=== PATIENT | female | born 1950 | race Caucasian/White ===

== ENCOUNTER 2025-08-28 08:46 | Outpatient (REF) | payer MEDICARE, OTHER, SELFPAY ==
--- OUTSIDE RECORDS SUMMARY | 2016-03-22 23:00 | XMS_ITS | Encounter Summary ---
Author Organization [facility] Address [address] [place] [address] Phone Care Team Providers Care Bender Helper Name Role Phone Quinn Mercado MD Primary Care Provider Reason for Visit * MRI/CAT Scan - Closed Specialty Diagnoses / Procedures Referred By Contac t Referred To Contact Procedures MRI Lower Extremity Outside (No Interpretation) Natan Rubio MD [address] [place] [address] Phone: tel: fax: mailto:[email or web address] Referral ID Status Reason Start Date Expiration Date Visits Re quested Visits Authorized [id number] Closed 04/04/2017 04/04/2018 1 1 Encounter Details Date Type Department Care Team (Late st Contact Info) Description 03/23/2016 Hospital Encounter [facility] [address] [place] [address] Natan Rubio MD [address] [place] [address] [email or web address] Social History Tobacco Use Types Packs/Day Years [...] st Contact Info) Description 08/22/2025 Procedure Pass [address] [address] 10/01/2025 11:45 AM EST Office Visit [facility] General Surgical Care [address] [place] [address] Mattie Mesa MD [address] [facility], [address]nd [place] [address] [email or web address] 05/09/2026 11:45 AM EDT Appointment [address] [address] Quinn Mercado MD [address] [place] [address] documented as of this encounter Procedures Procedure Name Priority Date/Time Associated Diagnosis Comments MRI LOWER EXTREMITY OUTSIDE (NO INTERPRETATION) Routine 03/23/2016 12:00 AM EDT documented in this encounter Results * MRI Lower Extremity Outside (No Interpretation) (03/23/2016 12:00 AM EDT) Narrative [facility] - 04/04/2017 11:57 AM EDT This study is for PACS storage only and not for interpretation. us Natan Rubio MD IMG OUTSIDE IMAGING W/OUT INTERPRETATION Final Result [facility] documented in this encounter Visit Diagnoses Not on filedocumented in this encounter Care Teams Bender Helper Relationship Specialty Start Date End Date Quinn Mercado MD [address] [place] [address] PCP - General 04/16/14 documented as of this encounter Additional Source Comments The information contained in this document represents components of the legal health record. It is not the complete legal health record.[facility]
--- OUTSIDE RECORDS SUMMARY | 2016-03-22 23:15 | XMS_ITS | Encounter Summary ---
Author Organization [facility] Address [address] [place] [address] Phone Care Team Providers Care Security Investigator Name Role Phone Quinn Mercado MD Primary Care Provider Reason for Visit * MRI/CAT Scan - Closed Specialty Diagnoses / Procedures Referred By Contac t Referred To Contact Procedures MRI Lower Extremity Outside (No Interpretation) Natan Rubio MD [address] [place], [place] [address] [place] [address] Phone: tel: fax: mailto:[email or web address] Referral ID Status Reason Start Date Expiration Date Visits Re quested Visits Authorized [id number] Closed 04/04/2017 04/04/2018 1 1 Encounter Details Date Type Department Care Team (Late st Contact Info) Description 03/23/2016 12:15 AM EDT Hospital Encounter [facility] [address] [place] [address] Natan Rubio MD [address] [place] [address] [email or web address] Social History Tobacco Use Types Packs/Day [...] st Contact Info) Description 08/22/2025 Procedure Pass [address] [address] 10/01/2025 11:45 AM EST Office Visit [facility] General Surgical Care [address] [place] [address] Mattie Mesa MD [address] [place] [address] 05/09/2026 11:45 AM EDT Appointment [address] [address] Quinn Mercado MD [address] [place] [address] documented as of this encounter Procedures Procedure [...] IMG OUTSIDE IMAGING W/OUT INTERPRETATION Final Result [facility] INTER[facility]AC[facility] documented in this encounter Visit Diagnoses Not on filedocumented in this encounter Care Teams Security Investigator Relationship Specialty Start Date End Date Quinn Mercado MD [address] [place] [address] PCP - General 04/16/14 documented as of this encounter Additional Source Comments The information contained in this document represents components of the legal health record. It is not the complete legal health record.[facility]
--- NOTE | 2025-08-28 08:49 | EMG_ITS ---
Chief complaint: Last June, patient had a fall in her kitchen that hitting her chin and elbows on the countertop. Later started having severe pain from left shoulder, under arm to elbow. 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 She denies anymore pain. She denies any numbness or tingling. History of thyroid cancer, status post surgery and radioactive iodine, 2008. History of left breast cancer, status post surgery and radiation 2011-. Exam shows weakness with left finger abduction/adduction and flexion. There is slight atrophy on left FDI. Reason for referral: Evaluate for brachial plexopathy versus ulnar neuropathy Referred by: Hugh MORSE Procedure done: Left upper extremity NCS/EMG Precautions and/or limitations: None The limb temperature was monitored continuously and remained between 32-36 degrees C during the performance of the NCS. Ulnar motor NCS was performed with moderate elbow flexion between 70-90 degrees, with across-elbow distance of 10 cm. Nerve Conduction Studies Anti Sensory Summary Table ?Stim Site NR Onset (ms) Norm Onset (ms) Peak (ms) Norm Peak (ms) O-P Amp (?V) Norm O-P Amp Site1 Site2 Delta-0 (ms) Dist (cm) Itz (m/s) Norm Itz (m/s) Left Lat Ante Brach Cutan Anti Sensory (Lat Forearm) Lat Biceps ? 1.0 1.4 1.7 Lat Biceps Lat Forearm 1.0 0.0 Left Med Ante Brach Cutan Anti Sensory (Med Forearm) Elbow ? 1.0 1.3 3.8 Elbow Med Forearm 1.0 0.0 Left Median Anti Sensory (2nd Digit) Wrist ? 2.5 3.1 <3.6 14.7 >10 Wrist 2nd Digit 2.5 14.0 56 Left Radial Anti Sensory (Thumb) Forearm ? 1.7 2.3 <3.1 9.3 Forearm Thumb 1.7 0.0 Left Ulnar Anti Sensory (5th Digit) Wrist ? 2.0 2.7 <3.7 11.9 >15.0 Wrist 5th Digit 2.0 14.0 70 Motor Summary Table ?Stim Site NR Onset (ms) Norm Onset (ms) O-P Amp (mV) Norm O-P Amp iAmp (mV) Amp (1st) (%) Site1 Site2 Delta-0 (ms) Dist (cm) Itz (m/s) Norm Itz (m/s) Left Median Motor (Abd Poll Brev) Wrist ? 3.7 <3.9 0.5 >4.5 0.5 100.0 Elbow Wrist 3.9 15.0 38 >45 Elbow ? 7.6 0.2 0.3 40.0 Left Ulnar Motor (Abd Dig Minimi) Wrist ? 5.5 <3.0 0.3 >5 0.2 100.0 B Elbow Wrist 3.3 16.0 48 >45 B Elbow ? 8.8 0.3 0.3 100.0 A Elbow B Elbow 1.3 10.0 77 >45 A Elbow ? 10.1 0.3 0.3 100.0 EMG ?Side Muscle Nerve Root Ins Act Fibs Psw Amp Dur Poly Recrt Int Pat Comment Left 1stDorInt Ulnar C8-T1 Incr 1+ 1+ Nml Nml 0 Nml Complete Left FlexCarpiUln Ulnar C8,T1 Incr 1+ 1+ Nml Nml 0 Nml Complete Left Biceps Musculocut C5-6 Nml Nml Nml Nml Nml 0 Nml Complete Left Triceps Radial C6-7-8 Nml Nml Nml Nml Nml 0 Nml Complete Left Deltoid Axillary C5-6 Nml Nml Nml Nml Nml 0 Nml Complete Left ExtIndicis Radial (Post Int) C7-8 Nml Nml Nml Nml Nml 0 Reduced Complete Paraspinal EMG ?Side Muscle Nerve Root Ins Act Fibs Psw Comment Left Cervical Upper Rami Nml Nml Nml Left Cervical Mid Rami Nml Nml Nml Left Cervical Lower Rami Nml Nml Nml Right Cervical Upper Rami Nml Nml Nml Right Cervical Mid Rami Nml Nml Nml Right Cervical Lower Rami Nml Nml Nml FINDINGS: Left median motor nerve showed very small, almost absent responses. Left ulnar motor nerve showed very small, almost absent responses. Left ulnar sensory nerve showed normal peak latencies but small amplitude. Left median sensory nerve showed normal peak latencies and normal amplitude. Left radial sensory nerve showed normal peak latencies but slightly smaller amplitude. Both MAC and LAC were present but with smaller amplitudes. Concentric needle EMG was performed in selected muscles of the left upper extremity and cervical paraspinals. Study revealed signs of electric abnormalities as shown in the table above. Left FCU showed increased insertional activity, PSWs and fibrillations. Left FDI showed increased insertional activity, PSWs and fibrillations. Left extensor indices showed reduced recruitment. No denervation seen on cervical paraspinals. IMPRESSION: 1. This is an abnormal study. 2. 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 3. There is no electrodiagnostic evidence for median neuropathy, ulnar neuropathy, or cervical radiculopathy. CLINICAL COMMENT: Clinically, patient presenting similar to [place] syndrome or brachial plexitis, where in she had severe acute onset of pain which has subsided, followed by weakness. Thank you for your kind referral. Tara Esposito MD, COREY Board Certified, [place] Board [employer] Medicine and Rehabilitation (ABPMR) Board Certified, [place] Board of Electrodiagnostic Medicine (ABEM) CODIN 23284 x 1 extremity MTDD
--- OUTSIDE RECORDS SUMMARY | 2025-08-28 09:12 | XMS_ITS | Encounter Summary ---
Author Organization [facility] Address [address] [place] [address] Phone Care Team Providers Care Tools Administrator Name Role Phone Quinn Mercado MD Primary Care Provider Dimas Chester MD Unavailable Unavailable Alphonse Craig MD Unavailable [phone] Nereyda Figueredo PA-C Unavailable [email or web address] Encounter Details Date Type Department Care Team (Latest Contact Info) Description 01/01/2022 Transcribe Orders Virtual Department [address] [place] [address] Crystal Solomon MD [address] [place] [address] Breast screening (Primary Dx) Social History Tobacco Use Types Packs/Day Years Used Date Smoking Tobacco: Never Smokeless Tobacco: Never Comments No Sex and Gender Information Value Date Recorded Sex Assigned at Female 04/06/2021 2:21 PM EDT Legal Sex Female 5:31 PM EST Gender Identity Female 04/06/2021 2:21 PM EDT Sexual Orientation Not on file documented as of this encounter Plan of Treatment Upcoming Encounters Date Type Department Care Team (Late st Contact Info) Description 08/22/2025 Procedure Pass [address] [address] 10/01/2025 11:45 AM EST Office Visit [facility] General Surgical Care [address] [place] [address] Mattie Mesa MD [address] [facility], 2nd [place] [address] [email or web address] 05/09/2026 11:45 AM EDT Appointment [address] [address] Quinn Mercado MD [address] [place] [address] documented as of this encounter Results * BI MAMMOGRAM SCREENING WITH TOMOSYNTHESIS WITH CAD (BILATERAL) (03/25/2022 12:45 PM EDT) Anatomical Region Laterality Modality Breast Left, Breast Right, Breast Bilateral Bila teral Mammography 03/25/2022 8:10 PM EDT Impressions 03/25/2022 8:16 PM EDT BILATERAL BREASTS: Benign, no evidence of malignancy. Normal interval follow-up is recommended in 12 months. Bi-RADS: BI-RADS CATEGORY: 2 - Benign finding. DENSITY: There are scattered fibroglandular densities. Narrative 03/25/2022 8:16 PM EDT STUDY: Bilateral screening mammography with tomosynthesis and CAD Left breast lumpectomy for malignancy in April 2016. TECHNIQUE: Bilateral full-field digital screening mammography is obtained and read in conjunction with computer-aided detection. Tomosynthesis as well as 2-D C view imaging were obtained. COMPARISON: Comparison made to multiple prior, most recent March 23, 2021, and most remote April 11, 2017. BREAST COMPOSITION: There are scattered areas of fibroglandular density RIGHT BREAST: Tissue marker from previous needle core biopsy. No significant masses, suspicious calcifications or other abnormalities are seen. LEFT BREAST: Posttreatment changes. No significant masses, suspicious calcifications or other abnormalities are seen. Procedure Note Paddy Mercado MD - 03/25/2022 STUDY: Bilateral screening mammography with tomosynthesis and CAD Left breast lumpectomy for malignancy in April 2016. TECHNIQUE: Bilateral full-field digital screening mammography is obtainedand read in conjunction with computer-aided detection. Tomosynthesis aswell as 2-D C view imaging were obtained. COMPARISON: Comparison made to multiple prior, most recent March 23, 2021,and most remote April 11, 2017. BREAST COMPOSITION: There are scattered areas of fibroglandulardensity RIGHT BREAST: Tissue marker from previous needle core biopsy. Nosignificant masses, suspicious calcifications or other abnormalities areseen. LEFT BREAST: Posttreatment changes. No significant masses, suspiciouscalcifications or other abnormalities are seen. IMPRESSION: BILATERAL BREASTS: Benign, no evidence of malignancy. Normal intervalfollow-up is recommended in 12 months. Bi-RADS: BI-RADS CATEGORY: 2 - Benign finding. DENSITY: There are scattered fibroglandular densities. us Crystal Solomon MD IMG MG EXAMS Final R esult documented in this encounter Visit Diagnoses Diagnosis Breast screening- Primary Breast screening, unspecified Breast screening Breast screening, unspecified documented in this encounter Care Teams Tools Administrator Relationship Specialty Start Date End Date Quinn Mercado MD [address] [place] [address] PCP - General 04/16/14 Dimas Chester MD Consulting Provider Allergy and Immunology 11/10/20 Alphonse Craig MD [address] [place] [address] [phone] [email or web address] Primary Oncologist Medical Oncology 03/26/21 Nereyda Figueredo PA-C [address] [place] [address] [email or web address] Physician Insulation Cutter Medical Oncology 03/17/23 04/01/25 documented as of this encounter Additional Source Comments The information contained in this document represents components of the legal health record. It is not the complete legal health record.[facility]
--- OUTSIDE RECORDS SUMMARY | 2025-08-28 09:13 | XMS_ITS | Encounter Summary ---
Author Organization [facility] Address [address] [place] [address] Phone Care Team Providers Care Choke Reamer Name Role Phone Quinn Mercado MD Primary Care Provider Dimas Chester MD Unavailable Unavailable Alphonse Craig MD Unavailable [phone] Encounter Details Date Type Department Care Team (Late st Contact Info) Description 04/02/2025 Procedure Pass [facility], Ct Scan - [address] [address] Social History Tobacco Use Types Packs/Day Years [...] st Contact Info) Description 08/22/2025 Procedure Pass [address] [address] 10/01/2025 11:45 AM EST Office Visit [facility] General Surgical Care [address] [place] [address] Mattie Mesa MD [address] [facility], 2nd [place] [address] 05/09/2026 11:45 AM EDT Appointment [address] [address] Quinn Mercado MD [address] [place] [address] documented as of this encounter Visit Diagnoses Not on filedocumented in this encounter Care Teams Choke Reamer Relationship Specialty Start Date End Date Quinn Mercado MD [address] [place] [address] PCP - General 04/16/14 Dimas Chester MD Consulting Provider Allergy and Immunology 11/10/20 Alphonse Craig MD [address] [place] [address] Primary Oncologist Medical Oncology 03/26/21 documented as of this encounter Additional Source Comments The information contained in this document represents components of the legal health record. It is not the complete legal health record.[facility]
--- OUTSIDE RECORDS SUMMARY | 2025-08-28 09:13 | XMS_ITS | Encounter Summary ---
Author Organization [facility] Address [address] [place] [phone] Phone Care Team Providers Care Director Of Community Life Name Role Phone Quinn Mercado MD Primary Care Provider Dimas Chester MD Unavailable Unavailable Alphonse Craig MD Unavailable [phone] Nereyda Figueredo PA-C Unavailable [email or web address] Encounter Details Date Type Department Care Team (Late st Contact Info) Description 02/12/2021 Ancillary Orders [facility] at [address] [address] Alphonse Craig MD [address] [place] [phone] [email or web address] Breast screening Social History Tobacco Use Types Packs/Day Years [...] st Contact Info) Description 08/22/2025 Procedure Pass [address] [address] 10/01/2025 11:45 AM EST Office Visit [facility] [address] [place] [address] Mattie Mesa MD [address] [facility], 2nd [place] [address] 05/09/2026 11:45 AM EDT Appointment [address] [address] Quinn Mercado MD [address] [place] [phone] documented as of this encounter Results * BI MAMMOGRAM SCREENING WITH TOMOSYNTHESIS WITH CAD (BILATERAL) (03/23/2021 11:48 AM EDT) Anatomical Region Laterality Modality Breast Left, Breast Right, Breast Bilateral Bila teral Mammography 03/23/2021 6:43 PM EDT Impressions 03/23/2021 6:52 PM EDT BILATERAL BREASTS: Benign, no evidence of malignancy. Normal interval follow-up is recommended in 12 months. Bi-RADS: BI-RADS CATEGORY: 2 - Benign finding. DENSITY: There are scattered fibroglandular densities. Narrative 03/23/2021 6:52 PM EDT STUDY: Bilateral screening mammography with tomosynthesis and CAD History: Personal history of left breast cancer, status post lumpectomy in April 2016. TECHNIQUE: Bilateral full-field digital screening mammography is obtained and read in conjunction with computer-aided detection. Tomosynthesis as well as 2-D C view imaging were obtained. COMPARISON: Comparison made to multiple prior, most recent April 02, 2020, and most remote December 28, 2010. BREAST COMPOSITION: There are scattered areas of fibroglandular density RIGHT BREAST: Tissue marker from previous needle core biopsy. No significant masses, suspicious calcifications or other abnormalities are seen. LEFT BREAST: Postsurgical changes. No significant masses, suspicious calcifications or other abnormalities are seen. Procedure Note Paddy Mercado MD - 03/23/2021 STUDY: Bilateral screening mammography with tomosynthesis and CAD History: Personal history of left breast cancer, status post lumpectomy inJuly 2016. TECHNIQUE: Bilateral full-field digital screening mammography is obtainedand read in conjunction with computer-aided detection. Tomosynthesis aswell as 2-D C view imaging were obtained. COMPARISON: Comparison made to multiple prior, most recent April 02, 2020,and most remote December 28, 2010. BREAST COMPOSITION: There are scattered areas of fibroglandulardensity RIGHT BREAST: Tissue marker from previous needle core biopsy. Nosignificant masses, suspicious calcifications or other abnormalities areseen. LEFT BREAST: Postsurgical changes. No significant masses, suspiciouscalcifications or other abnormalities are seen. IMPRESSION: BILATERAL BREASTS: Benign, no evidence of malignancy. Normal intervalfollow-up is recommended in 12 months. Bi-RADS: BI-RADS CATEGORY: 2 - Benign finding. DENSITY: There are scattered fibroglandular densities. us Alphonse Craig MD IMG MG EXAMS Final Result documented in this encounter Visit Diagnoses Diagnosis Breast screening Breast screening, unspecified Breast screening Breast screening, unspecified documented in this encounter Care Teams Director Of Community Life Relationship Specialty Start Date End Date Quinn Mercado MD [address] [place] [id number] PCP - General 04/16/14 Dimas Chester MD Consulting Provider Allergy and Immunology 11/10/20 Alphonse Craig MD [address] [place] [phone] Primary Oncologist Medical Oncology 03/26/21 Nereyda Figueredo PA-C [address] [place] [phone] [email or web address] Physician Credit Coordinator Medical Oncology 03/17/23 04/01/25 documented as of this encounter Additional Source Comments The information contained in this document represents components of the legal health record. It is not the complete legal health record.[facility]
--- OUTSIDE RECORDS SUMMARY | 2025-08-28 09:13 | XMS_ITS | Data Portability ---
Author Organization [facility], Main Office Address [address] [place] [address] Care Team Providers Care Honey Grader And Blender Name Role Phone QUINN MERCADO Primary Care Provider [phone] TOM NORRIS Automotive Sales Manager SLEEP MEDICINE SERVICES Sleep Medicine [phone] BRISEIDA PIERRE Breast Surgeon [phone] JOHN STOVALL Dehydration Unit Operator LEANNE ELIZABETH [employer] Paralegal CAMERON ROBINS Chief Of Service SARINA PICKENS Hose Handler [phone] NICOLE CURRIE Hematology/Oncology [phone] SAMARIA FISH Phys. Med. & Rehab [phone] SARAH MARTINEZ Neuropsychologist [phone] JULIA HARO Ship Fastener TURIN ORTHOPEDIC SURGEON Orthopedic Surgeo n [facility] Take Away Attendant [phone] CHRIS APPIAH Buyer Assessment Encounter Date Assessment Date Assessment LastModified by Organization Details LastModified Time 11/28/2024 11/28/2024 The patient reports a prior sleep evaluation, with an equivocal sleep study for obstructive sleep apnea (REY). However, upon reviewing her last sleep medicine note from 2022, it suggested a diagnosis of REY. I encouraged her to follow up with sleep medicine, as untreated REY can be a potential cause of her fatigue. Other possible causes of fatigue, such as cardiac or pulmonary conditions, should also be considered. Due to time limitations today, I did not obtain an EKG, but she follows regularly with a gas usage meter clerk and has undergone multiple cardiac evaluations in the past. She also has a history of coronary artery disease and is being managed for hypertension, which was elevated today but asymptomatic. She has a follow-up scheduled with her primary care provider (PCP), and I advised her to discuss blood pressure management at that visit. On exam, she does not appear dyspneic, her lung sounds are clear, and she is saturating well on room air. Therefore, I will defer pulmonary function testing to her PCP for further evaluation if needed. For further workup, we will proceed with lab testing but omit serum and urine protein electrophoresis (SPEP/UPEP), as her tier lift operator is already following up on this. Her urine sample will be sent for further analysis to confirm the absence of infection. Given her history of chronic constipation, which can contribute to urinary symptoms, I will obtain an abdominal X-ray to assess for significant stool burden and recommend follow-up with her shed workers supervisor . Other potential causes of her symptoms include atrophic vaginitis, though this would not explain her fatigue. A mental health assessment was conducted using the RODRICK/PHQ screening tools, which indicated mild anxiety. Given these results, I reassured the patient and advised continued monitoring. If symptoms worsen or persist, further evaluation and management may be necessary. [email or web address] Not available 11/28/2024 17:53:26 Plan of Treatment Reminders Order Date Submit Date Provider Last Modified By Organization Details Last Modified Time Details Appointments [email or web address] 2025 01:00P M Quinn Mercado MD Not available Not available Not available Lab LDL, direct , serum 2024 025 SIMEON [facility] (Centralized Electronic Ordering - All Locations), Patient Can Go To The Location Of Their Choice, [id number] 04/29/2025 11:58:31 HbA1c (hemog lobin A1c), blood 2024 025 SIMEON [facility] (Centralized Electronic Ordering - All Locations), Patient Can Go To The Location Of Their Choice, [id number] 04/29/2025 11:58:32 CMP, serum or plasma 2024 025 SIMEON [facility] (Centralized Electronic Ordering - All Locations), Patient Can Go To The Location Of Their Choice, 04/29/2025 11:58:31 urinal ysis, dipsti ck 2024 laura In-Office Order, Internal Use Only DO Not Attach Compendium DO Not Attach Compendium, Do Not Delete/merge, [id number] 11/28/2024 17:14:04 urinal ysis comple te, reflex cultur e 2024 SIMEON [facility] (Centralized Electronic Ordering - All Locations), Patient Can Go To The Location Of Their Choice, 12/02/2024 10:05:20 vitami n D, 25-hyd aby, total, serum 2024 SIMEON [facility] (Centralized Electronic Ordering - All Locations), Patient Can Go To The Location Of Their Choice, 12/01/2024 12:05:39 mitoch ondria l M2 igg Ab, serum 2024 025 SIMEON [facility] (Centralized Electronic Ordering - All Locations), Patient Can Go To The Location Of Their Choice, 12/01/2024 12:05:39 gamma- glutam yl transf erase (ggt), serum 2024 025 SIMEON [facility] (Centralized Electronic Ordering - All Locations), Patient Can Go To The Location Of Their Choice, 12/01/2024 12:05:41 alkali ne phosph atase, serum or plasma 2024 025 SIMEON [facility] (Centralized Electronic Ordering - All Locations), Patient Can Go To The Location Of Their Choice, 11/28/2024 15:41:39 CBC w/ auto diff 2024 025 SIMEON [facility] ([facility]ized [facility] Ordering - All Locations), Patient Can Go To The Location Of Their Choice, 12/01/2024 12:05:35 CMP, serum or plasma 2024 025 SIMEON [facility] ([facility]ized [facility] Ordering - All Locations), Patient Can Go To The Location Of Their Choice, 12/01/2024 12:05:36 CK (creat ine kinase ), total, serum 2024 SIMEON [facility] (Centralized [facility] Ordering - All Locations), Patient Can Go To The Location Of Their Choice, 12/01/2024 12:05:38 phosph orus, serum or plasma 2024 SIMEON [facility] ([facility]ized [facility] Ordering - All Locations), Patient Can Go To The Location Of Their Choice, 12/01/2024 12:05:42 borrel ia burgdo rferi IgG + IgM + total panel, IA, serum 2024 SIMEON [facility] ([facility]ized Electronic Ordering - All Locations), Patient Can Go To The Location Of Their Choice, 12/01/2024 12:05:40 inflam mation panel, serum or plasma 2024 SIMEON [facility] ([facility]ized [facility] Ordering - All Locations), Patient Can Go To The Location Of Their Choice, 12/01/2024 12:05:38 TSH + free T4, serum 2024 S[facility]ON [facility] ([facility]ized [facility] Ordering - All Locations), Patient Can Go To The Location Of Their Choice, 12/01/2024 12:05:34 Mycoba cteriu m tuberc ulosis stimul ated gamma interf santino, qual, blood 2024 SIMEON [facility] (Centralized Electronic Ordering - All Locations), Patient Can Go To The Location Of Their Choice, 12/01/2024 12:05:37 Referral physic al medici ne and rehabi litati on referr al - Patien t 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 Limite d option s for pain manage ment given allerg ies and advers e reacti ons. Report s she has previo usly tolera nathalie joint inject ions in lumbar spine 2024 SIMEON Jean MD, [address], [place], [address], 08/05/2025 18:45:15 physic al therap ist referr al - Pain and weakne ss attrib uted to cervic al spine degene ration with radicu lopath y. MRI shows multi level modert ate to severe forami nal narrow ing 2024 025 [facility] [place], [address] [place], [address], 07/12/2025 14:49:07 orthop edic surgeo n referr al - Rule out fractu re. Patien t has recent fall with impact to head. Experi encing pain, weakne ss. Orderi ng MRI and Xray 2024 025 [email or web address] [facility], [address], [address], [place], [address], 08/15/2025 15:26:[address] referr al - for eval of pt with elevat ed rheuma toid factor , CK and sed rate 2024 025 [facility] Chris Appiah MD, [address] [place] [address], [address], 06/15/2025 08:38:12 Procedures None record ed. Surgeries None record ed. Imaging MRI, cervic al spine, w/o contra st - Trip t has recent fall (3 weeks ago) with impact to head. Now experi encing pain, upper extrem ity weakne ss, numbne ss. Rule out cord/n erve compre ssion. 2024 025 [email or web address] [facility], [address] [place] [address], [address], 07/10/2025 11:56:30 XR, cervic al spine, 2 or 3 view - Rule out fractu re. Patien t has recent fall with impact to head. Experi encing pain, weakne ss. 2024 025 [facility], [facility] [place], [address], 07/12/2025 11:14:37 XR, abdome n, comple te 2024 025 [facility], [address] [place], [address], 12/12/2024 10:08:41 XR, chest, 2 view 2024 025 [facility], [address], [place], [address], 12/12/2024 10:08:41 Medication Orders gabape ntin 100 mg capsul e 2024 025 [email or web address] [id number], [address] [place], [address], 07/05/2025 15:24:14 omepra zole 20 mg capsul e,ely yed releas e 2024 025 SIMEON [id number], [address] [place], [address], 04/29/2025 11:58:17 Patient TargetsNo targets recorded. Patient Instructions Encounter Date Encounter Id Patient Instructions Last Modified By Organization Details Last Modified Time 11/28/2024 [id number] high blood pressure: care instructions [email or web address] Not available 11/28/2024 15:41:20 learning about high blood pressure [email or web address] Not available 11/28/2024 15:41:20 04/29/2025 [id number] high cholesterol: care instructions [email or web address] Not available 04/29/2025 11:58:15 depression treatment: care instructions [email or web address] Not available 04/29/2025 11:58:15 high blood pressure: care instructions awychowski Not available 04/29/2025 11:58:15 learning about high blood pressure awychowski Not available 04/29/2025 11:58:15 07/05/2025 [id number] Chart reviewed, agree with above assessment and plan. [email or web address] Not available 07/08/2025 06:30:24 07/12/2025 [id number] healthy upper back: exercises [email or web address] Not available 07/12/2025 11:33:31 Chart reviewed, agree with above assessment and plan. [email or web address] Not available 07/12/2025 12:37:13 Reason for Referral Buyer Referral for Rheumatoid factor detected for eval of pt with elevated rheumatoid factor, CK and sed rate Referring Physician: Quinn Mercado [facility], Encounter Date: 12/14/2024 Orthopedic Surgeon Referral for Cervical radiculopathy Rule out fracture. Patient has recent fall with impact to head. Experiencing pain, weakness. Ordering MRI and Xray Referring Physician: Nelida Michele [facility], Encounter Date: 07/05/2025 Physical Medicine And Rehabi litation Referral for Cervical radiculopathy Patient has cervical spine degeneration with radiculopathy. Limited options for pain management given allergies and adverse reactions. Reports she has previously tolerated joint injections in lumbar spine Referring Physician: Nelida Michele [facility], Encounter Date: 07/12/2025 Physical Therapist Referral for Cervical radiculopathy Pain and weakness attributed to cervical spine degeneration with radiculopathy. MRI shows multi level modertate to severe foraminal narrowing Referring Physician: Nelida Michele [facility], Encounter Date: 07/12/2025 Results Created Date Observation Date Name Description Value Unit Range Abnormal Flag Note LastModifiedBy Organization Detail LastModifiedTime 11/28/1911/29/2024 TSH+F REE T4 TSH 1.380 uIU/m L 0.450- 4.500 normal Not Available [facility] ([facility]) [address] [place], [address], 12/01/2024 12:05:33 11/28/1911/29/2024 TSH+F REE T4 T4,free(dire ct) 1.35 NG/dL 0.82-1 .77 normal Not Available [facility] ([facility]) [address] [place], [address], 12/01/2024 12:05:33 11/28/1911/29/2024 CBC WITH DIFFE RENTI AL/PL ATELE T WBC 6.9 x10e3 /uL 3.4-10 .8 normal Not Available [facility] ([facility]) [address] [place], [address], 12/01/2024 12:05:35 11/28/19 25 11/29/2024 CBC WITH DIFFE RENTI AL/PL ATELE T RBC 4.49 x10e6 /uL 3.77-5 .28 normal Not Available [facility] ([facility]) [address] [place], [address], 12/01/2024 12:05:35 11/28/19 25 11/29/2024 CBC WITH DIFFE RENTI AL/PL ATELE T hemoglobin 13.3 g/dL 11.1-1 5.9 normal Not Available [facility] ([facility]) [address] [place], [address], 12/01/2024 12:05:35 11/28/19 25 11/29/2024 CBC WITH DIFFE RENTI AL/PL ATELE T hematocrit 41.0 % 34.0-4 6.6 normal Not Available [facility] ([facility]) [address] [place], [address], 12/01/2024 12:05:35 11/28/19 25 11/29/2024 CBC WITH DIFFE RENTI AL/PL ATELE T MCV 91 fL 79-97 normal Not Available [facility] ([facility]) [address] [place], [address], 12/01/2024 12:05:35 11/28/19 25 11/29/2024 CBC WITH DIFFE RENTI AL/PL ATELE T MCH 29.6 pg 26.6-3 3.0 normal Not Available [facility] ([facility]) [address] [place], [address], 12/01/2024 12:05:35 11/28/19 25 11/29/2024 CBC WITH DIFFE RENTI AL/PL ATELE T MCHC 32.4 g/dL 31.5-3 5.7 normal Not Available [facility] ([facility]) [address] [facility], [place], [address], 12/01/2024 12:05:35 11/28/19 25 11/29/2024 CBC WITH DIFFE RENTI AL/PL ATELE T RDW 13.8 % 11.7-1 5.4 Not Available [facility] ([facility]) [address] [facility], [place], [address], 12/01/2024 12:05:35 11/28/19 25 11/29/2024 CBC WITH DIFFE RENTI AL/PL ATELE T platelets 285 x10e3 /uL 150-45 0 normal Not Available [facility] ([facility]) [address] [facility], [place], [address], 12/01/2024 12:05:35 11/28/19 25 11/29/2024 CBC WITH DIFFE RENTI AL/PL ATELE T neutrophils 65 % not estab. normal Not Available [facility] ([facility]) [address] [facility], [place], [address], 12/01/2024 12:05:35 11/28/19 25 11/29/2024 CBC WITH DIFFE RENTI AL/PL ATELE T lymphs 26 % not estab. normal Not Available [facility] ([facility]) [address] [facility], [place], [address], 12/01/2024 12:05:35 11/28/19 25 11/29/2024 CBC WITH DIFFE RENTI AL/PL ATELE T monocytes 7 % not estab. normal Not Available [facility] ([facility]) [address] [facility], [place], [address], 12/01/2024 12:05:35 11/28/19 25 11/29/2024 CBC WITH DIFFE RENTI AL/PL ATELE T eos 1 % not estab. normal Not Available [facility] ([facility]) [address] [facility], [place], [address], 12/01/2024 12:05:35 11/28/19 25 11/29/2024 CBC WITH DIFFE RENTI AL/PL ATELE T basos 1 % not estab. normal Not Available [facility] ([facility]) [address] [facility], [place], [address], 12/01/2024 12:05:35 11/28/19 25 11/29/2024 CBC WITH DIFFE RENTI AL/PL ATELE T immature cells RESOURCE FORESTER Not Available [facility] ([facility]) [address] [place], [address], 12/01/2024 12:05:35 11/28/19 25 11/29/2024 CBC WITH DIFFE RENTI AL/PL ATELE T neutrophils (absolute) 4.4 x10e3 /uL 1.4-7. 0 normal Not Available [facility] ([facility]) [address] [place], [address], 12/01/2024 12:05:35 11/28/19 25 11/29/2024 CBC WITH DIFFE RENTI AL/PL ATELE T lymphs (absolute) 1.8 x10e3 /uL 0.7-3. 1 normal Not Available [facility] ([facility]) [address] [place], [address], 12/01/2024 12:05:35 11/28/19 25 11/29/2024 CBC WITH DIFFE RENTI AL/PL ATELE T monocytes(ab solute) 0.5 x10e3 /uL 0.1-0. 9 normal Not Available [facility] ([facility]) [address] [place], [address], 12/01/2024 12:05:35 11/28/19 25 11/29/2024 CBC WITH DIFFE RENTI AL/PL ATELE T eos (absolute) 0.1 x10e3 /uL 0.0-0. 4 normal Not Available [facility] ([facility]) [address] [place], [address], 12/01/2024 12:05:35 11/28/19 25 11/29/2024 CBC WITH DIFFE RENTI AL/PL ATELE T baso (absolute) 0.0 x10e3 /uL 0.0-0. 2 normal Not Available [facility] ([facility]) [address] [facility], [place], [address], 12/01/2024 12:05:35 11/28/19 25 11/29/2024 CBC WITH DIFFE RENTI AL/PL ATELE T immature granulocytes 0 % not estab. Not Available [facility] ([facility]) [address] [facility], [place], [address], 12/01/2024 12:05:35 11/28/19 25 11/29/2024 CBC WITH DIFFE RENTI AL/PL ATELE T immature grans (abs) 0.0 x10e3 /uL 0.0-0. 1 Not Available [facility] ([facility]) [address] [facility], [place], [address], 12/01/2024 12:05:35 11/28/19 25 11/29/2024 CBC WITH DIFFE RENTI AL/PL ATELE T NRBC RESOURCE FORESTER Not Available [facility] ([facility]) [address] [facility], [place], [address], 12/01/2024 12:05:35 11/28/19 25 11/29/2024 CBC WITH DIFFE RENTI AL/PL ATELE T hematology comments: RESOURCE FORESTER Not Available [facility] ([facility]) [address] [facility], [place], [address], 12/01/2024 12:05:35 11/28/19 25 11/29/2024 COMP. METAB OLIC PANEL (14) glucose 109 mg/dL 70-99 above high normal Not Available [facility] ([facility]) [address] [facility], [place], [address], 12/01/2024 12:05:36 11/28/19 25 11/29/2024 COMP. METAB OLIC PANEL (14) BUN 19 mg/dL 8-27 normal Not Available [facility] ([facility]) [address] [place], [address], 12/01/2024 12:05:36 11/28/19 25 11/29/2024 COMP. METAB OLIC PANEL (14) creatinine 0.76 mg/dL 0.57-1 .00 normal Not Available [facility] ([facility]) [address] [place], [address], 12/01/2024 12:05:36 11/28/19 25 11/29/2024 COMP. METAB OLIC PANEL (14) eGFR 82 mL/mi n/1.7 3 >59 normal Not Available [facility] ([facility]) [address] [place], [address], 12/01/2024 12:05:36 11/28/19 25 11/29/2024 COMP. METAB OLIC PANEL (14) BUN/creatini ne ratio 25 12-28 normal Not Available [facility] ([facility]) [address] [place], [address], 12/01/2024 12:05:36 11/28/19 25 11/29/2024 COMP. METAB OLIC PANEL (14) sodium 142 mmol/ L 134-14 4 normal Not Available [facility] ([facility]) [address] [place], [address], 12/01/2024 12:05:36 11/28/19 25 11/29/2024 COMP. METAB OLIC PANEL (14) potassium 3.9 mmol/ L 3.5-5. 2 normal Not Available [facility] ([facility]) [address] [place], [address], 12/01/2024 12:05:36 11/28/19 25 11/29/2024 COMP. METAB OLIC PANEL (14) chloride 103 mmol/ L 96-106 normal Not Available [facility] ([facility] [address] [place], [address], 12/01/2024 12:05:36 11/28/19 25 11/29/2024 COMP. METAB OLIC PANEL (14) carbon dioxide, total 23 mmol/ L 20-29 normal Not Available [facility] ([facility] [address] [place], [address], 12/01/2024 12:05:36 11/28/19 25 11/29/2024 COMP. METAB OLIC PANEL (14) calcium 9.9 mg/dL 8.7-10 .3 normal Not Available [facility] ([facility] [address] [place], [address], 12/01/2024 12:05:36 11/28/19 25 11/29/2024 COMP. METAB OLIC PANEL (14) protein, total 7.6 g/dL 6.0-8. 5 normal Not Available [facility] ([facility]) [address] [place], [address], 12/01/2024 12:05:36 11/28/19 25 11/29/2024 COMP. METAB OLIC PANEL (14) albumin 4.4 g/dL 3.8-4. 8 normal Not Available [facility] ([facility]) [address] [place], [address], 12/01/2024 12:05:36 11/28/19 25 11/29/2024 COMP. METAB OLIC PANEL (14) globulin, total 3.2 g/dL 1.5-4. 5 Not Available [facility] ([facility]) [address] [place], [address], 12/01/2024 12:05:36 11/28/19 25 11/29/2024 COMP. METAB OLIC PANEL (14) bilirubin, total 0.8 mg/dL 0.0-1. 2 normal Not Available [facility] ([facility]) [address] [place], [address], 12/01/2024 12:05:36 11/28/19 25 11/29/2024 COMP. METAB OLIC PANEL (14) alkaline phosphatase 142 IU/L 44-121 above high normal Not Available [facility] ([facility]) [address] [place], [address], 12/01/2024 12:05:36 11/28/19 25 11/29/2024 COMP. METAB OLIC PANEL (14) AST (SGOT) 26 IU/L 0-40 normal Not Available [facility] ([facility]) [address] [place], [address], 12/01/2024 12:05:36 11/28/19 25 11/29/2024 COMP. METAB OLIC PANEL (14) ALT (SGPT) 22 IU/L 0-32 normal Not Available [facility] ([facility]) [address] [place], [address], 12/01/2024 12:05:36 11/28/19 25 11/30/2024 QUANT IFERO N-TB GOLD PLUS quantiferon incubation INCUBA TION PERFOR MED. Not Available [facility] ([facility]) [address] [place], [address], 12/01/2024 12:05:37 11/28/19 25 11/30/2024 QUANT IFERO N-TB GOLD PLUS quantiferon criteria COMMEN T Quant iFERO N-TB Gold Plus is a quali tativ e indir ect test for M tuber culos is infec tion (incl uding disea se) and is inten ded for use in conju nctio n with risk asses sment , radio graph y, and other medic al and diagn ostic evalu ation s. The Quant iFERO N-TB Gold Plus resul t is deter mined by subtr actin g the Nil value from eithe r TB antig en (Ag) value . The Mitog en tube serve s as a contr ol for the test. Not Available [facility] ([facility]) [address] [place], [address], 12/01/2024 12:05:37 11/28/19 25 12/01/2024 QUANT IFERO N-TB GOLD PLUS quantiferon TB1 Ag value 0.05 IU/mL Not Available [facility]) [address] [place], [address], 12/01/2024 12:05:37 11/28/19 25 12/01/2024 QUANT IFERO N-TB GOLD PLUS quantiferon TB2 Ag value 0.05 IU/mL Not Available [facility] ([facility]) [address] [place], [address], 12/01/2024 12:05:37 11/28/19 25 12/01/2024 QUANT IFERO N-TB GOLD PLUS quantiferon nil value 0.03 IU/mL Not Available [facility] ([facility]) [address] [place], [address], 12/01/2024 12:05:37 11/28/19 25 12/01/2024 QUANT IFERO N-TB GOLD PLUS quantiferon mitogen value 9.78 IU/mL Not Available [facility] ([facility]) [address] [place], [address], 12/01/2024 12:05:37 11/28/19 25 12/01/2024 QUANT IFERO N-TB GOLD PLUS quantiferon- TB gold plus NEGATI VE negati ve No respo nse to M tuber culos is antig ens detec nathalie. Infec tion with M tuber culos is is unlik georgette, but high risk indiv idual s shoul d be consi dered for addit ional testi ng (ATS/ IDSA/ CDC Clini jose francisco Pract ice Guide lines , 2017) . The refer ence range is an Antig en minus Nil resul t of <0.35 IU/mL . Chemi lumin escen ce immun oassa y metho dolog y Not Available [facility] ([facility]) [address] [place], [address], 12/01/2024 12:05:37 11/28/19 25 11/29/2024 ESR-W ES+CR P sedimentatio n rate-westerg tez 53 mm/HR 0-40 above high normal Not Available [facility] ([facility]) [address] [place], [address], 12/01/2024 12:05:38 11/28/1911/29/2024 ESR-W ES+CR P C-reactive protein, quant 2 mg/L 0-10 normal Not Available [facility] ([facility]) [address] [place], [address], 12/01/2024 12:05:38 11/28/19 25 11/29/2024 CK, TOTAL creatine kinase,total 214 U/L 32-182 above high normal Not Available [facility] ([facility]) [address] [place], [address], 12/01/2024 12:05:38 11/28/19 25 11/29/2024 MITOC HONDR IAL (M2) ANTIB YASMANI mitochondria l (M2) antibody <20.0 units 0.0-20 .0 Negat kodi 0.0 - 20.0 Equiv ocal 20.1 - 24.9 Posit kodi >24.9 Mitoc hondr ial (M2) Antib odies are found in 90-96 % of patie nts with prima ry bilia ry cirrh osis. Not Available [facility] ([facility]) [address] [place], [address], 12/01/2024 12:05:39 11/28/19 25 11/29/2024 VITAM IN D, 25-HY DROXY vitamin D, 25-hydroxy 42.9 NG/mL 30.0-1 00.0 Vitam in D defic iency has been defin ed by the Insti tute of Medic ine and an Endoc rine Socie ty pract ice guide line as a level of serum 25-OH vitam in D less than 20 ng/mL (1,2) . The Endoc rine Socie ty went on to furth er defin e vitam in D insuf ficie ncy as a level betwe en 21 and 29 ng/mL (2). 1. IOM (Inst itute of Medic ine). 2010. Dieta ry refer ence intak es for calci um and D. Ann Marie pino [place]: [facility] . 2. Marely rocha [place], Angelita zuniga [place], Yvon off-F errar i KOROMA, et al. Evalu ation , treat ment, and preve ntion of vitam in D defic iency : an Endoc rine Socie ty clini jose francisco pract ice guide line. JCEM. 2010; 96(7) :1911 -30. Not Available [facility] ([facility]) [address] [facility], [place], [address], 12/01/2024 12:05:39 11/28/19 25 11/29/2024 LYME DISEA SE SEROL OGY W/REF STACEY lyme total antibody [place] NEGATI VE negati ve Lyme antib odies not detec nathalie. Refle x testi ng is not indic ated. No labor atory evide nce of infec tion with B. burgd orfer i (Lyme disea se). Negat kodi resul ts may occur in patie nts recen tly infec nathalie (less than or equal to 14 days) with B. burgd orfer i. If recen t infec tion is suspe cted, repea t testi ng on a new sampl e colle cted in 7 to 14 days is recom phill d. Not Available [facility] ([facility]) [address] [facility], [place], [address], 12/01/2024 12:05:40 11/28/19 25 11/29/2024 GGT WITH REFLE X AMYLA SE/LI PASE GGT 20 IU/L 0-60 normal Not Available [facility] ([facility]) [address] [facility], [place], [address], 12/01/2024 12:05:41 11/28/19 25 11/29/2024 PHOSP HORUS phosphorus 3.6 mg/dL 3.0-4. 3 normal Not Available [facility] ([facility]) [address] [facility], [place], [address], 12/01/2024 12:05:42 11/28/19 25 11/29/2024 UA/M W/RFL X CULTU RE, COMP specific gravity 1.017 1.005- 1.030 normal Not Available [facility] ([facility]) [address] [facility], [place], [address], 12/02/2024 10:05:20 11/28/19 25 11/29/2024 UA/M W/RFL X CULTU RE, COMP pH 6.0 5.0-7. 5 normal Not Available [facility] ([facility]) [address] [facility], [place], [address], 12/02/2024 10:05:20 11/28/19 25 11/29/2024 UA/M W/RFL X CULTU RE, COMP urine-color YELLOW yellow Not Available [facility] ([facility]) [address] [place], [address], 12/02/2024 10:05:20 11/28/19 25 11/29/2024 UA/M W/RFL X CULTU RE, COMP appearance CLEAR clear Not Available [facility] ([facility]) [address] [place], [address], 12/02/2024 10:05:20 11/28/19 25 11/29/2024 UA/M W/RFL X CULTU RE, COMP WBC esterase TRACE negati ve abnormal Not Available [facility] ([facility]) [address] [place], [address], 12/02/2024 10:05:20 11/28/19 25 11/29/2024 UA/M W/RFL X CULTU RE, COMP protein NEGATI VE negati ve/tra ce Not Available [facility] ([facility]) [address] [place], [address], 12/02/2024 10:05:20 11/28/19 25 11/29/2024 UA/M W/RFL X CULTU RE, COMP glucose NEGATI VE negati ve Not Available [facility] ([facility]) [address] [place], [address], 12/02/2024 10:05:20 11/28/19 25 11/29/2024 UA/M W/RFL X CULTU RE, COMP ketones NEGATI VE negati ve Not Available [facility] ([facility]) [address] [place], [address], 12/02/2024 10:05:20 11/28/19 25 11/29/2024 UA/M W/RFL X CULTU RE, COMP occult blood NEGATI VE negati ve Not Available [facility] ([facility]) [address] [place], [address], 12/02/2024 10:05:20 11/28/19 25 11/29/2024 UA/M W/RFL X CULTU RE, COMP bilirubin NEGATI VE negati ve Not Available [facility] ([facility]) [address] [place], [address], 12/02/2024 10:05:20 11/28/19 25 11/29/2024 UA/M W/RFL X CULTU RE, COMP urobilinogen ,semi-qn 0.2 mg/dL 0.2-1. 0 normal Not Available [facility] ([facility]) [address] [place], [address], 12/02/2024 10:05:20 11/28/19 25 11/29/2024 UA/M W/RFL X CULTU RE, COMP nitrite, urine NEGATI VE negati ve Not Available [facility] ([facility]) [address] [facility], [place], [address], 12/02/2024 10:05:20 11/28/19 25 11/29/2024 UA/M W/RFL X CULTU RE, COMP microscopic examination SEE BELOW: Micro scopi c was indic ated and was perfo rmed. Not Available [facility] ([facility]) [address] [facility], [place], [address], 12/02/2024 10:05:20 11/28/19 25 11/29/2024 UA/M W/RFL X CULTU RE, COMP WBC NONE SEEN /hpf 0 - 5 Not Available [facility] ([facility]) [address] [facility], [place], [address], 12/02/2024 10:05:20 11/28/19 25 11/29/2024 UA/M W/RFL X CULTU RE, COMP RBC NONE SEEN /hpf 0 - 2 Not Available [facility] ([facility]) [address] [facility], [place], [address], 12/02/2024 10:05:20 11/28/19 25 11/29/2024 UA/M W/RFL X CULTU RE, COMP epithelial cells (non renal) NONE SEEN /hpf 0 - 10 Not Available [facility] ([facility]) [address] [facility], [place], [address], 12/02/2024 10:05:20 11/28/19 25 11/29/2024 UA/M W/RFL X CULTU RE, COMP epithelial cells (renal) RESOURCE FORESTER Not Available [facility] ([facility]) [address] [place], [address], 12/02/2024 10:05:20 11/28/19 25 11/29/2024 UA/M W/RFL X CULTU RE, COMP casts NONE SEEN /lpf none seen Not Available [facility] ([facility]) [address] [facility], [place], [address], 12/02/2024 10:05:20 11/28/19 25 11/29/2024 UA/M W/RFL X CULTU RE, COMP cast type RESOURCE FORESTER Not Available [facility] ([facility]) [address] [facility], [place], [address], 12/02/2024 10:05:20 11/28/19 25 11/29/2024 UA/M W/RFL X CULTU RE, COMP crystals RESOURCE FORESTER Not Available [facility] ([facility]) [address] [facility], [place], [address], 12/02/2024 10:05:20 11/28/19 25 11/29/2024 UA/M W/RFL X CULTU RE, COMP crystal type RESOURCE FORESTER Not Available [facility] ([facility]) [address] [facility], [place], [address], 12/02/2024 10:05:20 11/28/19 25 11/29/2024 UA/M W/RFL X CULTU RE, COMP mucus threads RESOURCE FORESTER Not Available [facility] ([facility]) [address] [facility], [place], [address], 12/02/2024 10:05:20 11/28/19 25 11/29/2024 UA/M W/RFL X CULTU RE, COMP bacteria NONE SEEN none seen/f ew Not Available [facility] ([facility]) [address] [facility], [place], [address], 12/02/2024 10:05:20 11/28/19 25 11/29/2024 UA/M W/RFL X CULTU RE, COMP yeast RESOURCE FORESTER Not Available [facility] ([facility]) [address] [facility], [place], [address], 12/02/2024 10:05:20 11/28/19 25 11/29/2024 UA/M W/RFL X CULTU RE, COMP trichomonas RESOURCE FORESTER Not Available [facility] ([facility]) [address] [facility], [place], [address], 12/02/2024 10:05:20 11/28/19 25 11/29/2024 UA/M W/RFL X CULTU RE, COMP comment RESOURCE FORESTER Not Available [facility] ([facility]) [address] [facility], [place], [address], 12/02/2024 10:05:20 11/28/19 25 11/29/2024 UA/M W/RFL X CULTU RE, COMP microscopic examination RESOURCE FORESTER Not Available [facility] ([facility]) [address] [facility], [place], [address], 12/02/2024 10:05:20 11/28/19 25 11/29/2024 UA/M W/RFL X CULTU RE, COMP urinalysis reflex COMMEN T This speci men has refle xed to a Urine Cultu re. Not Available [facility] ([facility]) [address] [place], [address], 12/02/2024 10:05:20 11/28/19 25 12/02/2024 UA/M W/RFL X CULTU RE, COMP urine culture,comp rehensive FINAL REPORT Not Available [facility] ([facility]) [address] [place], [address], 12/02/2024 10:05:20 11/28/19 25 12/02/2024 UA/M W/RFL X CULTU RE, COMP result 1 COMMEN T Mixed uroge nital [place]ol[place] 6,000 Colon ies/m L Not Available [facility] ([facility]) [address] [place], [address], 12/02/2024 10:05:20 11/28/19 25 12/05/2024 CK, TOTAL +ISOE NZYME S, SERUM creatine kinase,total 211 U/L 32-182 above high normal Not Available [facility] ([facility]) [address] [place], [address], 12/06/2024 20:06:36 11/28/19 25 12/06/2024 CK, TOTAL +ISOE NZYME S, SERUM macro type 2 0 % not observ ed Not Available [facility] ([facility]) [address] [place], [address], 12/06/2024 20:06:36 11/28/19 25 12/06/2024 CK, TOTAL +ISOE NZYME S, SERUM CK-mm 100 % 97-100 Not Available [facility] ([facility]) [address] [place], [address], 12/06/2024 20:06:36 11/28/19 25 12/06/2024 CK, TOTAL +ISOE NZYME S, SERUM macro type 1 0 % not observ ed Not Available [facility] ([facility]) [address] [place], [address], 12/06/2024 20:06:36 11/28/19 25 12/06/2024 CK, TOTAL +ISOE NZYME S, SERUM CK-mb 0 % 0-3 Not Available [facility] ([facility]) [address] [place], [address], 12/06/2024 20:06:36 11/28/19 25 12/06/2024 CK, TOTAL +ISOE NZYME S, SERUM CK-bb 0 % 0 Not Available [facility] ([facility]) [address] [place], [address], 12/06/2024 20:06:36 11/28/19 25 11/30/2024 RHEUM ATOID FACTO R (RF) rheumatoid factor (rf) 14.5 IU/mL <14.0 above high normal Not Available [facility] ([facility]) [address] [facility], [place], [address], 12/06/2024 20:06:37 11/28/19 25 12/01/2024 ANTI- CCP AB, IGG/I GA anti-ccp Ab, IgG/IgA 13 units 0-19 Negat kodi <20 Weak posit kodi 20 - 39 Moder ate posit kodi 40 - 59 Stron g posit kodi >59 Not Available [facility] ([facility]) [address] [facility], [place], [address], 12/06/2024 20:06:37 11/28/19 25 12/01/2024 BETHANIE BY IFA RFX TITER /NICANOR MARKEL BETHANIE by ifa rfx titer/patter n NEGATI VE Negat kodi <1:80 Borde rline 1:80 Posit kodi >1:80 ICAP nomen zara re: AC-0 For more infor daryl gage about Hep-2 cell patte rns use ANApa ttern s.org , the offic ial websi te for the Inter natio nal Conse nsus on Antin uclea r Antib yasmani (BETHANIE) Patte rns (ICAP ). Not Available [facility] ([facility]) [address] [facility], [place], [address], 12/06/2024 20:06:38 11/28/19 25 12/03/2024 ALDOL ASE aldolase 5.4 U/L 3.3-10 .3 Not Available [facility] ([facility]) [address] [facility], [place], [address], 12/06/2024 20:06:39 11/28/19 25 11/30/2024 JANE EN AUTHO RIZAT ION written authorizatio n MARTHA Mcginnis en Autho rizat ion Recei johnny. Autho rizat ion recei johnny from [facility] for Link Reque st on 11-30 Logge d by Sanket Goss Not Available [facility] ([facility]) [address] [facility], [place], [address], 12/06/2024 20:06:39 11/28/19 25 11/28/2024 urina lysis , dipst ick Leukocytes Negati ve Not Available In-Office Order Internal Use Only DO Not Attach Compendium DO Not Attach Compendium, Do Not Delete/merge, 11/28/2024 15:24:04 11/28/19 25 11/28/2024 urina lysis , dipst ick Nitritie negati ve Not Available In-Office Order Internal Use Only DO Not Attach Compendium DO Not Attach Compendium, Do Not Delete/merge, 11/28/2024 15:24:04 11/28/19 25 11/28/2024 urina lysis , dipst ick Urobilinogen .2 Not Available In-Of fice Order Internal Use Only DO Not Attach Compendium DO Not Attach Compendium, Do Not Delete/merge, 11/28/2024 15:24:04 11/28/19 25 11/28/2024 urina lysis , dipst ick Protein Negati ve Not Available In-Office Order Internal Use Only DO Not Attach Compendium DO Not Attach Compendium, Do Not Delete/merge, 11/28/2024 15:24:04 11/28/19 25 11/28/2024 urina lysis , dipst ick pH 6.0 Not Available In-Office Order Internal Use Only DO Not Attach Compendium DO Not Attach Compendium, Do Not Delete/merge, 11/28/2024 15:24:04 11/28/19 25 11/28/2024 urina lysis , dipst ick Blood Negati ve Not Available In-Office Order Internal Use Only DO Not Attach Compendium DO Not Attach Compendium, Do Not Delete/merge, 11/28/2024 15:24:04 11/28/19 25 11/28/2024 urina lysis , dipst ick Specific [place] 1.010 Not Available In-Off ice Order Internal Use Only DO Not Attach Compendium DO Not Attach Compendium, Do Not Delete/merge, 11/28/2024 15:24:04 11/28/19 25 11/28/2024 urina lysis , dipst ick Ketone Negati ve Not Available In-Office Order Internal Use Only DO Not Attach Compendium DO Not Attach Compendium, Do Not Delete/merge, [facility] 11/28/2024 15:24:04 11/28/19 25 11/28/2024 urina lysis , dipst ick Bilirubin Negati ve Not Available In-Office Order Internal Use Only DO Not Attach Compendium DO Not Attach Compendium, Do Not Delete/merge, [facility] 11/28/2024 15:24:04 11/28/19 25 11/28/2024 urina lysis , dipst ick Glucose Negati ve Not Available In-Office Order Internal Use Only DO Not Attach Compendium DO Not Attach Compendium, Do Not Delete/merge, [id number] 11/28/2024 15:24:04 11/28/19 25 11/28/2024 urina lysis , dipst ick Appearance Clear Not Available In-Offi ce Order Internal Use Only DO Not Attach Compendium DO Not Attach Compendium, Do Not Delete/merge, [id number] 11/28/2024 15:24:04 11/28/19 25 11/28/2024 urina lysis , dipst ick Color Pale Yellow Not Available In-Office Order Internal Use Only DO Not Attach Compendium DO Not Attach Compendium, Do Not Delete/merge, [facility] 11/28/2024 15:24:04 02/29/20 25 03/01/2025 COMP. METAB OLIC PANEL (14) glucose 110 mg/dL 70-99 above high normal Not Available [facility] ([facility]) [address] [place], [address], 03/01/2025 06:13:12 02/29/20 25 03/01/2025 COMP. METAB OLIC PANEL (14) BUN 20 mg/dL 8-27 normal Not Available [facility] ([facility]) [address] [facility], [place], [address], 03/01/2025 06:13:12 02/29/20 25 03/01/2025 COMP. METAB OLIC PANEL (14) creatinine 0.85 mg/dL 0.57-1 .00 normal Not Available [facility] ([facility]) [address] [place], [address], 03/01/2025 06:13:12 02/29/20 25 03/01/2025 COMP. METAB OLIC PANEL (14) eGFR 71 mL/mi n/1.7 3 >59 normal Not Available [facility] ([facility]) [address] [facility], [place], [address], 03/01/2025 06:13:12 02/29/20 25 03/01/2025 COMP. METAB OLIC PANEL (14) BUN/creatini ne ratio 24 12-28 normal Not Available [facility] ([facility]) [address] [facility], [place], [address], 03/01/2025 06:13:12 02/29/20 25 03/01/2025 COMP. METAB OLIC PANEL (14) sodium 143 mmol/ L 134-14 4 normal Not Available [facility] ([facility]) [address] [place], [address], 03/01/2025 06:13:12 02/29/20 25 03/01/2025 COMP. METAB OLIC PANEL (14) potassium 4.1 mmol/ L 3.5-5. 2 normal Not Available [facility] ([facility]) [address] [place], [address], 03/01/2025 06:13:12 02/29/20 25 03/01/2025 COMP. METAB OLIC PANEL (14) chloride 105 mmol/ L 96-106 normal Not Available [facility] ([facility]) [address] [place], [address], 03/01/2025 06:13:12 02/29/20 25 03/01/2025 COMP. METAB OLIC PANEL (14) carbon dioxide, total 20 mmol/ L 20-29 normal Not Available [facility] ([facility]) [address] [facility] [place], [address], 03/01/2025 06:13:12 02/29/20 25 03/01/2025 COMP. METAB OLIC PANEL (14) calcium 9.8 mg/dL 8.7-10 .3 normal Not Available [facility] ([facility]) [address] [facility] [place], [address], 03/01/2025 06:13:12 02/29/20 25 03/01/2025 COMP. METAB OLIC PANEL (14) protein, total 6.9 g/dL 6.0-8. 5 normal Not Available [facility] ([facility]) [address] [facility] [place], [address], 03/01/2025 06:13:12 02/29/20 25 03/01/2025 COMP. METAB OLIC PANEL (14) albumin 4.2 g/dL 3.8-4. 8 normal Not Available [facility] ([facility]) [address] [facility] [place], [address], 03/01/2025 06:13:12 02/29/20 25 03/01/2025 COMP. METAB OLIC PANEL (14) globulin, total 2.7 g/dL 1.5-4. 5 Not Available [facility] ([facility]) [address] [facility] [place], [address], 03/01/2025 06:13:12 02/29/20 25 03/01/2025 COMP. METAB OLIC PANEL (14) bilirubin, total 0.6 mg/dL 0.0-1. 2 normal Not Available [facility] ([facility]) [address] [facility] [place], [address], 03/01/2025 06:13:12 02/29/20 25 03/01/2025 COMP. METAB OLIC PANEL (14) alkaline phosphatase 142 IU/L 44-121 above high normal Not Available [facility] ([facility]) [address] [place], [address], 03/01/2025 06:13:12 02/29/20 25 03/01/2025 COMP. METAB OLIC PANEL (14) AST (SGOT) 28 IU/L 0-40 normal Not Available [facility] ([facility]) [address] [place], [address], 03/01/2025 06:13:12 02/29/20 25 03/01/2025 COMP. METAB OLIC PANEL (14) ALT (SGPT) 22 IU/L 0-32 normal Not Available [facility] ([facility]) [address] [place], [address], 03/01/2025 06:13:12 02/29/20 25 03/01/2025 LIPID PANEL cholesterol, total 188 mg/dL 100-19 9 normal Not Available [facility] ([facility]) [address] [place], [address], 03/01/2025 06:13:13 02/29/20 25 03/01/2025 LIPID PANEL triglyceride s 93 mg/dL 0-149 normal Not Available [facility] ([facility]) [address] [place], [address], 03/01/2025 06:13:13 02/29/20 25 03/01/2025 LIPID PANEL HDL cholesterol 65 mg/dL >39 normal Not Available [facility] ([facility]) [address] [place], [address], 03/01/2025 06:13:13 02/29/20 25 03/01/2025 LIPID PANEL VLDL cholesterol jose francisco 17 mg/dL 5-40 Not Available [facility] ([facility]) [address] [place], [address], 03/01/2025 06:13:13 02/29/20 25 03/01/2025 LIPID PANEL LDL chol calc ([facility]) 106 mg/dL 0-99 above high normal Not Available [facility] ([facility]) [address] [facility], [place], [address], 03/01/2025 06:13:13 02/29/2003/01/2025 LIPID PANEL LDL calc comment: RESOURCE FORESTER Not Available [facility] ([facility]) [address] [facility], [place], [address], 03/01/2025 06:13:13 02/29/2003/01/2025 VITAM IN D, 25-HY DROXY vitamin D, 25-hydroxy 52.7 NG/mL 30.0-1 00.0 Vitam in D defic iency has been defin ed by the Insti tute of Medic ine and an Endoc rine Socie ty pract ice guide line as a level of serum 25-OH vitam in D less than 20 ng/mL (1,2) . The Endoc rine Socie ty went on to furth er defin e vitam in D insuf ficie ncy as a level betwe en 21 and 29 ng/mL (2). 1. IOM (Inst itute of Medic ine). 2009. Dieta ry refer ence rafal es for calci um and D. Ann Marie pino [place]: The [facility] . 2. Marely rocha MF, Angelita ey [place], Bispoonam off-F errar i KOROMA, et al. Evalu ation , treat ment, and preve ntion of vitam in D defic iency : an Endoc rine Socie ty clini jose francisco pract ice guide line. JCEM. 2010; 96(7) :1911 -30. Not Available [facility] ([facility]) [address] [facility], [place], [address], 03/01/2025 06:13:14 02/29/2003/01/2025 TSH RFX ON ABNOR MAL TO FREE T4 TSH 1.360 uIU/m L 0.450- 4.500 normal Not Available [facility] ([facility]) [address] [facility], [place], [address], 03/01/2025 06:13:14 10/30/19 25 03/19/2024 MAMMO , scree dandy, bilat eral No observ ation record ed. [email or web address] In-Office Order Internal Use Only DO Not Attach Compendium DO Not Attach Compendium, Do Not Delete/merge, [id number] 10/31/2024 09:03:49 12/14/1911/13/2024 sheree r monit or No observ ation record ed. chriss Not Available 04/29 11:47:17 03/22/20 25 03/20/2025 MAMMO , scree dandy, bilat eral No observ ation record ed. [email or web address] - Callback Orders Only [address] [place], [address], 04/29/2025 11:47:17 04/30/20 25 04/11/2025 CT, abdom en + pelvi s, w/ contr ast No observ ation record ed. SIMEON Not Available 2024 22:58:11 07/11/20 25 07/10/2025 MRI, cervi jose francisco spine , w/o contr ast No observ ation record ed. [email or web address] [facility] [address] [place], [address], 07/12/2025 08:57:18 07/12/20 25 07/05/2025 XR, cervi jose francisco spine , 2 or 3 view No observ ation record ed. [email or web address] [facility] [address] [place], [address], 07/12/2025 12:38:48 Result Notes None recorded. Problems Name Problem SNOMED Code Status Onset Date Resolution Date Notes Provider Name and Address Organization Details Recorded Time Pain of multiple joints 27326420 Active ANGIE Soliz 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 71268365 Completed 08/19/2017 STORY: LEFT BREAST [id number], INFILTRA TING DUCTAL CA, ERPOS, RI NEG, HER2 NEG (SCHBRIGETTE LZ/EMILIA ELL/ALEJANDRA MCGHEE) Quinn Mercado MD [address], [place], [address] , [facility] 7 11:03:25 Essentia l hyperten laquita [id number] Completed 02/19/2020 Fede Bishop MD [address], [place], [address] , [facility] 3 15:56:51 Gastroes ophageal reflux disease 146297263 Completed 02/19/2020 Quinn Mercado MD [address], [place], [address] , [facility] 0 11:53:10 Headache 86717257 Completed 08/19/2017 Quinn Mercado MD [address], [place], [address] , [facility] 7 11:01:52 Pure hypercho lesterol emia 311340432 [facility] 13:46:38 Postoper ative hypothyr oidism 82228763 Active ANGIE Soliz, [facility] 2 13:46:38 Irritabl e bowel syndrome 95221108 Completed 08/19/2017 Quinn Mercado MD [address] [address], [place], [address] , [facility] 7 11:00:57 Fibromyo sitis 36034197 [facility] 13:46:38 Obesity 283693726 Completed 08/19/2017 Radha Monteiroo [facility] 9 15:49:55 Osteoart hritis 713755800 [facility] 13:46:38 Osteopor osis 29612442 Completed 02/01/2017 Quinn Mercado MD [address] [address], [place], [address] , [facility] 7 23:56:17 Allergic rhinitis 73364560 [facility] 13:46:38 Disorder of bursa of shoulder region 89734141 Completed 08/19/2017 Quinn Mercado MD [address] [address], [place], [address] , [facility] 7 11:02:51 Primary malignan t neoplasm of thyroid gland 89907660 Completed 08/30/2019 Quinn Mercado MD [address] [address], [place], [address] , [facility] 9 10:28:37 Non-toxi c uninodul ar goiter 287030981 [facility] 13:46:38 Lesion of ulnar nerve 737246275 Completed 08/19/2017 Quinn Mercado MD [address], [place], [address] , [facility] 7 11:02:39 Chest pain 02194266 Completed 07/17/2014 Quinn Mercado MD [address] [facility] [address], [place], [address] , [facility] 7 15:51:31 Undiffer entiated inflamma tory arthriti s 841621321 Completed 08/19/2017 Quinn Mercado MD [address] [facility] [address], [place], [address] , [facility] 7 11:02:47 Osteopen ia 844694178 Active ANGIE Soliz, [facility] 2 13:46:38 Sinusiti s 89934055 Completed 07/23/2015 Quinn Mercado MD [address], [place], [address] , [facility] 6 22:54:51 Pain of joint of hand 644233685 Completed 08/24/2018 Quinn Mercado MD [address], [place], [address] , [facility] 8 14:58:32 Impaired fasting glycemia 674047162 Active ANGIE Soliz, [facility] 2 13:46:38 Major depressi ve disorder 104131394 Completed 07/23/2015 Quinn Mercado MD [address], [place], [address] , [facility] 6 22:54:51 Edema 215153801 Completed 01/04/2018 Mary mondragon, [facility] 8 11:16:44 Cough 85736442 Completed 07/23/2015 Quinn Mercado MD [address], [place], [address] , [facility] 6 22:54:51 Anemia 598917680 Completed 08/19/2017 Quinn Mercado MD [address], [place], [address] , [facility] 7 11:03:54 Candidia sis of skin 93852038 Completed 07/23/2015 Quinn Mercado MD [address], [place], [address] , [facility] 6 22:54:51 Body mass index 30+ - obesity 946804721 Completed 08/30/2019 Quinn Mercado MD [address], [place], [address] , [facility] 0 09:58:32 Menopaus e present 327274724 Completed 08/24/2018 Quinn Mercado MD [address], [place], [address] , [facility] 8 15:00:57 Recurren t paromaximiliani s 238099308 Completed 08/19/2017 Quinn Mercado MD [address], [place], [address] , [facility] 7 11:01:33 Cervical lymphade nopathy 854371181 Completed 08/19/2017 Quinn Mercado MD [address], [place], [address] , [facility] [place] 7 11:01:05 Dyspnea [id number] Completed 08/19/2017 Quinn Mercado MD [address], [place], [address] , [facility] [place] 7 11:01:57 Alkaline phosphat ase above referenc e range [id number] Completed 09/08/2020 Quinn Mercado MD [address], [place], [address] , [facility] [place] 0 09:32:42 Chest pain 12800041 Completed 05/05/2017 Quinn Mercado MD [address], [place], [address] , [facility] [place] 7 15:51:31 Angioede ca [id number] Completed 08/19/2017 Quinn Mercado MD [address], [place], [address] , [facility] [place] 7 10:59:16 Mild intermit tent asthma 275425543 Completed 09/08/2020 Quinn Mercado MD [address], [place], [address] , [facility] [place] 0 09:44:43 Non-alco holic fatty liver 613757629 Active ANGIE Soliz, [facility] 2 13:46:38 Asthma 082613611 Active ANGIE Soliz, [facility] 2 13:46:38 Hiatal hernia with gastroes ophageal reflux 410688869 Active ANGIE Soliz, [facility] 2 13:46:38 Hysterec edmund Active ANGIE Soliz, [facility] 2 13:46:38 Hyperten sive disorder 20374157 Active ANGIE Soliz, [facility] 2 13:46:38 Ferguson' s ulcer of esophagu s 219605026 Completed 01/17/2023 Quinn Mercado MD [address], [place], [address] , [facility] [place] 3 13:34:36 Urticari a [id number] Completed 01/17/2023 Quinn Mercado MD [address] [facility] [address], [place], [address] , [facility] [place] 3 13:25:03 Polyp of colon 79486950 Active Leannenelly Sanderson MA null, [facility] 2 13:46:38 Chronic sinusiti s 21270350 Active Leannelana Sanderson MA null, [facility] 2 13:46:38 Suspecte d COVID-19 270291925 Completed 06/11/2021 Removal Reason: Problem added by user yandel rosibel from the COVID-19 watch flag Quinn Mercado MD [address] [facility] [address], [place], [address] , [facility] [place] 1 10:35:16 Parvovir us infectio n [id number] Completed 09/16/2022 Quinn Mercado MD [address] [facility] [address], [place], [address] , [facility] [place] 2 14:37:06 Knee pain Completed 201109/16/2022 Quinn Mercado MD [address] [facility] [address], [place], [address] , [facility] [place] 2 14:36:45 Pain of knee region 5857159884 Completed 201109/16/2022 Quinn Mercado MD [address], [place], [address] , [facility] [place] 2 14:36:49 History of malignan t neoplasm of breast 125319294 Active 2011 left pT1bN0, s/p lumectom y/radiat ion, intolera nt to Femara/A rimidex Leanne Sanderson MA null, [facility] 2 13:46:38 Allergy Completed 201105/27/2014 IMPRESSI ON: SOUNDS LIKE A TRANSIEN T ALLERGIC REACTION . HAS HISTORY OF ENVIRONM ENTAL ALLERGIE S. IF RECURREN T/WORSE WILL REFER.; RECORDED 10/04/20 12 10:11AM BY FLORA VERGARA MA, ANNOTATI ON/EZ Mercado MD [address] [address], [place], [address] , [facility] [place] 6 22:54:51 Allergy Completed 201104/30/2014 IMPRESSI ON: SOUNDS LIKE A TRANSIEN T ALLERGIC REACTION . HAS HISTORY OF ENVIRONM ENTAL ALLERGIE S. IF RECURREN T/WORSE WILL REFER.; RECORDED 10/04/20 12 10:11AM BY FLORA VERGARA MA, ANNOTATI ON/EZ Mercado MD [address] [address], [place], [address] , [facility] [place] 6 22:54:51 Intestin al obstruct ion 25351139 Completed 201205/27/2014 RECORDED 02/10/20 13 11:44AM BY FLORA VERGARA MA, ANNOTATI ON/EZ Mercado MD [address] [address], [place], [address] , [facility] [place] 6 22:54:51 Intestin al obstruct ion 84979382 Completed 201204/30/2014 RECORDED 02/10/20 13 11:44AM BY FLORA VERGARA MA, ANNOTATI ON/EZ Mercado MD [address] [address], [place], [address] , [facility] [place] 6 22:54:51 Patient status finding [id number] Completed 201205/27/2014 RECORDED 01/30/20 13 2:47PM BY CAMILA STEEN MA, ANNOTATI ON/ADDPATRICIA Mercado MD [address], [place], [address] , [facility] [place] 6 22:54:51 Patient status finding [id number] Completed 201204/30/2014 RECORDED 01/30/20 13 2:47PM BY CAMILA STEEN MA, BETH ON/EZ Mercado MD [address] [facility] [address], [place], [address] , [facility] [place] 6 22:54:51 Toxic effect of carbon monoxide 91346331 Completed 201205/27/2014 RESOLVED DATE: 10/04/20 12; IMPRESSI ON: DOUBT THIS WAS A SIGNIFIC ANT EXPOSURE . WILL GET LEVELS.; RECORDED 02/10/20 13 11:43AM BY FLORA VERGAAR MA, ANNOTATI ON/EZ Mercado MD [address] [facility] [address], [place], [address] , [facility] [place] 6 22:54:51 Breathin g painful 13151840 Completed 201205/27/2014 IMPRESSI ON: L LATERAL CHEST WALL PAIN FOLLOWIN G FALL, TENDER TO TOUCH, NO RASHES OR LESIONS. LIKELY STRAIN, PT WITH CONCERN THOUGH RE POSSIBLE FX. CHECK XRAY, ADVISED RE CONTINUE NSAID DURING DAY, PAIN MED PRN. WILL CONTACT WITH RESULTS OF XRAY WHEN AVAIL, SHE IS TO CALL SOONER PRN.; RECORDED 02/10/20 13 11:44AM BY FLORA VERGARA MA, BETH ON/EZ Mercado MD [address] [facility] [address], [place], [address] , [facility] [place] 6 22:54:51 Toxic effect of carbon monoxide 54110773 Completed 201204/30/2014 RESOLVED DATE: 10/04/20 12; IMPRESSI ON: DOUBT THIS WAS A SIGNIFIC ANT EXPOSURE . WILL GET LEVELS.; RECORDED 02/10/20 13 11:43AM BY FLORA VERGARA MA, ANNOTATI ON/EZ Mercado MD [address], [place], [address] , [facility] [place] 6 22:54:51 Breathin g painful 56784730 Completed 201204/30/2014 IMPRESSI ON: L LATERAL CHEST WALL PAIN FOLLOWIN G FALL, TENDER TO TOUCH, NO RASHES OR LESIONS. LIKELY STRAIN, PT WITH CONCERN THOUGH RE POSSIBLE FX. CHECK XRAY, ADVISED RE CONTINUE NSAID DURING DAY, PAIN MED PRN. WILL CONTACT WITH RESULTS OF XRAY WHEN AVAIL, SHE IS TO CALL SOONER PRN.; RECORDED 02/10/20 13 11:44AM BY FLORA VERGARA MA, BETH ROLDAN/EZ Mercado MD [address] [facility] [address], [place], [address] , [facility] [place] 6 22:54:51 Screenin g for malignan t neoplasm of colon Completed 201205/27/2014 RECORDED 05/17/20 13 1:16PM BY FLORA VERGARA MA, BETH ON/EZ Mercado MD [address] [facility] [address], [place], [address] , [facility] [place] 6 22:54:51 Adult health examinat ion Completed 201205/27/2014 IMPRESSI ON: IMMUNIZA TION STATUS UTD, WILL SCREEN BASED ON RISK FACTORS. REGULAR DENTAL CARE AND SEATBELT USE ADVISED. DISTRACT ED DRIVING DISCUSSE D. ROUTINE NURSING HOME PHYSICIAN CARE UTD, AND COLONOSC OPY UPCOMING .; RECORDED 05/17/20 13 1:15PM BY FLORA VERGARA MA, BETH ROLDAN/EZ Mercado MD [address] [facility] [address], [place], [address] , [facility] [place] 6 22:54:51 Screenin g for malignan t neoplasm of colon Completed 201204/30/2014 RECORDED 05/17/20 13 1:16PM BY FLORA VERGARA MA, ANNOTATI ON/ADDEN DUM Quinn Mercado MD [address] [facility] [address], [place], [address] , [facility] [place] 6 22:54:51 Adult health examinat ion Completed 201204/30/2014 IMPRESSI ON: IMMUNIZA TION STATUS UTD, WILL SCREEN BASED ON RISK FACTORS. REGULAR DENTAL CARE AND SEATBELT USE ADVISED. DISTRACT ED DRIVING DISCUSSE D. ROUTINE NURSING HOME PHYSICIAN CARE UTD, AND COLONOSC OPY UPCOMING .; RECORDED 05/17/20 13 1:15PM BY FLORA VERGARA MA, ANNOTATI ON/ADDEN DUM Quinn Mercado MD [address] [facility] [address], [place], [address] , [facility] [place] 6 22:54:51 Influenz a vaccine needed [id number] 06 Completed 201205/27/2014 RECORDED 06/21/20 13 10:23AM BY QUINN Jacobson MD, OFFICE VISIT Quinn Mercado MD [address] [facility] [address], [place], [address] , [facility] [place] 6 22:54:51 Screenin g for malignan t neoplasm of breast Completed 201205/27/2014 RECORDED 06/21/20 13 9:29AM BY FLORA VERGARA MA, EDYATI ON/ADDEN DUM Quinn Mercado MD [address] [facility] [address], [place], [address] , [facility] [place] 6 22:54:51 Influenz a vaccine needed [id number] 06 Completed 201204/30/2014 RECORDED 06/21/20 13 10:23AM BY QUINN Jacobson MD, OFFICE VISIT Quinn Mercado MD [address] [facility] [address], [place], [address] , [facility] [place] 6 22:54:51 Screenin g for malignan t neoplasm of breast Completed 201204/30/2014 RECORDED 06/21/20 13 9:29AM BY FLORA VERGARA MA, ANNOTATI ON/EZ Mercado MD [address] [facility] [address], [place], [address] , [facility] [place] 6 22:54:51 Pain in thoracic spine 591658811 Completed 201305/27/2014 IMPRESSI ON: LOCATION C/W TRAPEZIU S STRAIN BUT GIVEN HER RISK FACTORS, DEGREE OF DISCOMFO RT AND RADICULA R COMPONEN TS WILL IMAGE TO RULE OU VERTEBRA L FRACTURE . IF NEGATIVE WILL MANAGE SYMPTOMA TICALLY. PT/FURTH ER EVAL IF PERSISTA NT OR ADDITION AL SYMPTOMS DEVELOP. ; RECORDED 10/24/19 14 9:00AM BY FLORA VERGARA MA, ANNOTATI ON/ADDPATRICIA Mercado MD [address] [facility] [address], [place], [address] , [facility] [place] 6 22:54:51 Pain in thoracic spine 188300054 Completed 201304/30/2014 IMPRESSI ON: LOCATION C/W TRAPEZIU S STRAIN BUT GIVEN HER RISK FACTORS, DEGREE OF DISCOMFO RT AND RADICULA R COMPONEN TS WILL IMAGE TO RULE OU VERTEBRA L FRACTURE . IF NEGATIVE WILL MANAGE SYMPTOMA TICALLY. PT/FURTH ER EVAL IF PERSISTA NT OR ADDITION AL SYMPTOMS DEVELOP. ; RECORDED 10/24/19 14 9:00AM BY FLORA VERGARA MA, EDYATI ON/EZ Mercado MD [address] [facility] [address], [place], [address] , [facility] [place] 6 22:54:51 Shoulder joint pain 075979042 Completed 201305/27/2014 RECORDED 12/25/19 14 1:09PM BY FLORA VERGARA MA, ANNOTATI ON/ADDPATRICIA Mercado MD [address] [facility] [address], [place], [address] , [facility] [place] 6 22:54:51 Malaise and fatigue 387282070 Completed 201307/17/2014 IMPRESSI ON: SCREEN FOR COMMON POSSIBLE METABOLI C ETIOLOGI ES. IF LABS NORMAL AND SYMPTOMS PERSIST WILL NEED FURTHER EVALUTIO N.; RECORDED 12/25/19 14 1:50PM BY FLORA VERGARA MA, OFFICE VISIT Quinn Mercado MD [address] [address], [place], [address] , [facility] 6 22:54:51 Essentia l hyperten laquita 28279322 Completed 201304/30/2014 IMPRESSI ON: WELL CONTROLL ED AND REGIMEN TOLERATE D. WILL CONTINUE CURRENT MEDS.; RECORDED 12/25/19 14 1:09PM BY FLORA VERGARA MA, ANNOTATI ON/ADDEN DUM Fede Bishop MD [address] [address], [place], [address] , [facility] [place] 3 15:56:51 Shoulder joint pain 743026288 Completed 201304/30/2014 RECORDED 12/25/19 14 1:09PM BY FLORA VERGARA MA, ANNOTATI ON/ADDEN DUM Quinn Mercado MD [address] [address], [place], [address] , [facility] 6 22:54:51 Depressi ve disorder 72528331 Completed 201303/07/2015 IMPRESSI ON: PT'S PSYCHIAT RIST RECENTLY LEFT THE AREA. THIS ISSUE HAS BEEN WELL CONTROLL ED. PT WANTS TO SEE IF ABLE TO GET OFF OF MEDS. SLOW WEAN ADVISED. I WILL FOLLOW AND REFILL MEDS FOR NOW.; RECORDED 12/27/19 14 1:05PM BY QUINN Jacobson MD, OFFICE VISIT Quinn Mercado MD [address] [facility] [address], [place], [address] , [facility] 6 22:54:51 Malaise and fatigue 018197707 Completed 201305/27/2014 IMPRESSI ON: SCREEN FOR COMMON POSSIBLE METABOLI C ETIOLOGI ES. IF LABS NORMAL AND SYMPTOMS PERSIST WILL NEED FURTHER EVALUTIO N.; RECORDED 03/27/20 14 12:57PM BY QUINN Jacobson MD, ANNOTATI ON/EZ Mercado MD [address] [facility] [address], [place], [address] , [facility] [place] 6 22:54:51 Single major depressi ve episode, in full remissio n Completed 201305/27/2014 RESOLVED DATE: 03/27/20 14; RECORDED 03/27/20 14 12:57PM BY QUINN Jacobson MD, OFFICE VISIT Quinn Mercado MD [address] [facility] [address], [place], [address] , [facility] [place] 6 22:54:51 Fibromyo sitis 92980573 Completed 201305/27/2014 IMPRESSI ON: WILL LOOK FOR AUTOIMMU NE DISEASE/ MYOSITIS .; RECORDED 03/27/20 14 12:57PM BY QUINN Jacobson MD, ANNOTATI ON/EZ Mercado MD [address] [address], [place], [address] , [facility] [place] 6 22:54:51 Steatoti c liver disease 278772805 Completed 201508/19/2017 Quinn Mercado MD [address] [address], [place], [address] , [facility] [place] 7 10:58:55 Breast lump 30335426 Completed 201608/24/2018 left Quinn Mercado MD [address] [facility] [address], [place], [address] , [facility] [place] 8 14:57:53 Small vessel cerebrov ascular disease 943217588 Active 2016 Leanne Sanderson MA null, [facility] 2 13:46:38 History of angioede angie 50361492964 08 Active 2016 Leanne Sanderson MA null, [facility] 2 13:46:38 Disorder of lumbar disc 499771067 Active 2016 Leanne Sanderson MA null, [facility] 2 13:46:38 Acute low back pain 216342793 Completed 201609/08/2020 Quinn Mercado MD [address], [place], [address] , [facility] [place] 2 14:28:27 Family history of hemochro matosis 932647191 Active 2016 Not Available [facility] 1 09:39:33 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 354123950 Completed 201609/08/2020 Quinn Mercado MD [address], [place], [address] , [facility] [place] 0 10:06:45 Hypercho lesterol emia 71030187 Completed 201601/17/2023 Quinn Mercado MD [address], [place], [address] , [facility] [place] 3 13:24:43 History of surgery 956754121 Completed 201601/17/2023 Quinn Mercado MD [address], [place], [address] , [facility] [place] 3 13:24:45 Acute low back pain 271257341 Completed 201609/16/2022 Quinn Mercado MD [address], [place], [address] , [facility] [place] 2 14:28:27 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 21857582675 9100 Active 2017 ANGIE Soliz, [facility] 2 13:46:38 Multiple nodules of lung 760430014 Active 2018 3mm b/l ANGIE Soliz, [facility] 2 13:46:38 Synovial chondrom atosis 168987413 Active 2018 Not Available [facility] 1 09:39:33 Mass of lower limb 610401054 Completed 201809/08/2020 Quinn Mercado MD [address], [place], [address] , [facility] 3 13:36:00 Mass of lower limb 125317059 Completed 201801/17/2023 Quinn Mercado MD [address], [place], [address] , [facility] 3 13:36:00 Bilatera l cataract s 13064838 Completed 201809/16/2022 Quinn Mercado MD [address], [place], [address] , [facility] [place] 2 14:39:23 History of malignan t neoplasm of thyroid 366832568 Active 2018 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 Quinn Mercado MD [address], [place], [address] , [facility] [place] 3 06:31:50 Obesity 254734869 Active 2018 ANGIE Soliz, [facility] 2 13:46:38 Immunofi xation Completed 201802/19/2020 Quinn Mercado MD [address], [place], [address] , [facility] [place] 0 11:42:01 Sensorin eural hearing loss of bilatera l ears 103297491 Active 2019 ANGIE Soliz, [facility] 2 13:46:38 Body mass index 30+ - obesity 575804038 Active 2019 ANGIE Soliz, [facility] 2 13:46:38 Hypothyr oidism 47418269 Active 2020 [facility] 2 13:46:38 Chronic kidney disease stage 3 295964133 Completed 202001/17/2023 Quinn Mercado MD [address] [facility] [address], [place], [address] , [facility] [place] 3 13:24:33 Magnetic resonanc e imaging of breast abnormal 88675092872 737920 Active 2020 Leanne Sanderson MA null, [facility] 2 13:46:38 Cyst of pancreas 83185940 Active 2020 likely IPMN, stable 04/2025 CT, consider 1 yr follow up MRI Quinn Mercado MD [address] [facility] [address], [place], [address] , [facility] [place] 5 11:07:49 Lumbar spondylo sis 557950335 Active 2021 Leanne Sanderson MA null, [facility] 2 13:46:38 Minimal cognitiv e impairme nt 119489668 Active 2021 ANGIE Soliz, [facility] 2 13:46:38 Chronic low back pain 284189478 Active 2021 Quinn Mercado MD [address] [facility] [address], [place], [address] , [facility] [place] 2 14:29:19 Acute sinusiti s 14858006 Completed 202101/17/2023 Quinn Mercado MD [address] [facility] [address], [place], [address] , [facility] [place] 3 13:23:40 Major depressi on in critical access hospital n 13325964 Completed 202205/24/2024 Quinn Mercado MD [address] [facility] [address], [place], [address] , [facility] [place] 4 15:11:03 Prediabe abdiel 830736766 Active 2022 Quinn Mercado MD [address], [place], [address] , [facility] [place] 3 08:43:54 Hypokale heydi 26311062 Completed 202209/19/2023 Quinn Mercado MD [address] [facility] [address], [place], [address] , [facility] [place] 3 13:35:29 Drug-ind uced hypokale heydi 964941610 Active 2022 Cameron Xavier MD [address] [facility] [address], [place], [address] , [facility] [place] 3 15:03:28 Osteoart hritis of right knee joint 08746766137 9100 Active 2022 Quinn Mercado MD [address], [place], [address] , [facility] [place] 3 19:46:24 Hypermag nesemia 07968673 Completed 202212/31/2023 Quinn Mercado MD [address] [facility] [address], [place], [address] , [facility] [place] 4 18:00:15 Essentia l hyperten laquita 94167045 Active 2022 Fede Bishop MD [address] [facility] [address], [place], [address] , [facility] [place] 3 15:56:51 Tachycar alia 3551563 Active 2023 Quinn Mercado MD [address], [place], [address] , [facility] [place] 4 11:32:56 EKG: Q wave abnormal 236777270 Active 2023 Quinn Mercado MD [address], [place], [address] , [facility] [place] 4 12:02:51 Recurren t major depressi on in partial remissio n 96337159 Active 2023 Quinn Mercado MD [address], [place], [address] , [facility] [place] 4 12:57:38 Monoclon al immunogl obulin G detected 122966689 Active 2023 Quinn Mercado MD [address], [place], [address] , [facility] [place] 5 10:47:58 Generali zed anxiety disorder 36007103 Active 2024 Quinn Mercado MD [address], [place], [address] , [facility] [place] 5 11:03:15 Rheumato id factor detected 349476340 Active 2024 Quinn Mercado MD [address], [place], [address] , [facility] [place] 5 07:13:01 Myositis 13819281 Active 2024 Quinn Mercado MD [address], [place], [address] , [facility] [place] 5 07:15:26 Cervical radiculo corinne 59356190 Active 2024 NELIDA Gage, [facility]- [address], [place], [address] , [facility] [place] 5 13:54:13 Cervical arthriti s 352400712 Active 2024 Quinn Mercado MD [address], [place], [address] , [facility] [place] 5 12:34:48 Stenosis of interver tebral foramina 84428902261 9 Active 2024 C3-C4, C5-C6, severe left C4-C5 and right C6-C7 Quinn Mercado MD [address] [facility], [place], [address] , [facility] [place] 5 12:36:11 Problem Notes None recorded. Procedures Surgical History Date Name Laterality Status Provider Name and Address Organization Details Recorded Time 03/20/20 25 Most Recent Mammogram completed Meghana Mcdaniel [facility] 03/22/2025 15:17:38 03/20/20 25 Mammogram screening completed Meghana Mcdaniel [facility] 03/22/2025 15:17:15 10/29/19 25 Advanced Care Planning completed Quinn Mercado MD [address], [address], [facility] [place] 10/29/2024 11:10:25 05/14/20 24 therapeutic injection of right shoulder using fluoroscopic guidance completed Quinn Mercado MD [address], [address], [facility] [place] 05/25/2024 20:53:44 03/24/20 24 radionuclide imaging of perfusion of myocardium under exercise stress completed Quinn Mercado MD [address], [address], [facility] [place] 04/10/2024 20:52:47 02/28/20 24 Echo transthoracic completed Quinn Mercado MD [address] [facility] [address] [facility], [place], [address], [facility] [place] 03/04/2024 16:41:37 01/27/20 23 Colonoscopy completed Quinn Mercado MD [address], [address], [facility] [place] 04/08/2024 11:11:21 09/08/20 20 Advanced Care Planning completed Quinn Mercado MD [address] [address], [place], [address], [facility] 09/08/2020 09:44:18 09/08/20 20 Six-Item Cognitive Test completed Abby Nowak MA [facility] 09/08/2020 09:17:08 08/30/20 19 Mini-Cog Test completed Flora Vergara MA [facility] 08/30/2019 10:08:33 08/24/20 18 Mini-Cog Test completed Flora Vergara MA [facility] 08/24/2018 14:47:32 01/24/20 18 Date of Last Colonoscopy completed Mara Dior [facility] 01/23/2018 16:36:14 01/24/20 18 Colonoscopy completed Mara Dior [facility] 01/23/2018 16:36:01 01/24/20 18 Egd diagnostic brush wash completed Quinn Mercado MD [address] [address], [place], [address], [facility] [place] 01/24/2018 11:08:28 08/19/20 17 Fall Risk Assessment completed Flora Vergara MA [facility] 08/19/2017 10:33:47 08/19/20 17 Mini-Cog Test completed Flora Vergara MA [facility] 08/19/2017 10:34:06 01/27/20 17 Most Recent Bone Density completed Quinn Mercado MD [address] [address], [place], [address], [facility] 02/06/2017 20:45:59 01/27/20 17 Dxa bone density teresa vrt fx completed Flora Vergara MA [facility] 08/24/2018 14:42:10 08/06/20 16 Fall Risk Assessment completed Flora Vergara MA [facility] 08/06/2016 11:33:15 08/06/20 16 Mini-Cog Test completed Flora Vergara MA [facility] 08/06/2016 11:34:40 07/27/20 16 Echo transthoracic completed Quinn Mercado MD [address] [facility], [place], [address], [facility] 06/17/2016 12:25:19 07/23/20 15 Fall Risk Assessment completed Flora Vergara MA [facility] 07/23/2015 13:17:20 07/23/20 15 Mini-Cog Test completed Flora Vergara MA [facility] 07/23/2015 13:17:20 07/17/20 14 Fall Risk Assessment completed Flora [facility]ergara [facility] [facility]2014 11:55:47 07/17/20 14 Mini-Cog Test completed Flora Vergara MA [facility] 07/17/2014 11:55:47 04/25/20 12 Cancer Surgery completed Flora Vergara MA [facility] 12/11/2021 11:16:36 04/25/20 12 Breast Surgery completed Flora Vergara MA [facility] 12/11/2021 11:16:36 04/16/20 12 Breast Biopsy completed Quinn Mercado MD [address] [facility] [address] [facility], [place], [id number], [facility] 08/24/2018 15:07:17 03/15/20 12 Breast Biopsy completed Flora Vergara MA [facility] 12/11/2021 11:16:36 07/16/20 09 Thyroid Surgery completed Quinn Mercado MD [address] [facility], [place], [phone], [facility] 08/24/2018 15:06:53 07/16/20 09 Cancer Surgery completed Flora Vergara MA [facility] 12/11/2021 11:16:36 10/17/19 08 Shoulder joint surgery completed Yu shepard MA [facility] 06/15/2021 15:29:27 02/23/19 91 Total hysterectomy completed Yu shepard MA [facility] 06/15/2021 15:29:44 02/23/19 Appendectomy completed Flora Vergara MA [facility] 12/11/2021 11:16:36 Cataract Surgery completed Leanne Sanderson MA [facility] 09/16/2022 13:58:32 Cataract Surgery completed Leanne Sanderson MA [facility] 09/16/2022 13:59:03 Imaging Results None recorded. Procedure Notes None recorded. Medical Equipment None Reported. Allergies Allergen ID Allergen Name Allergen Category Reaction Reaction Severity Criticality Documentation Date Start Date Code Code System Note Provider Name and Address Organization Details Recorded Time 50240 Substance with sulfonami de structure and antibacte rial mechanism of action (substanc e) medicatio n other Not available Not available 2014 38630 8003 SNOMED ANGIE Soliz [facility] 2 13:46:26 60261 lovastati n medicatio n myalgias (muscle pain) Not available Not available 11/21/2015 6472 RxNorm ANGIE Soliz [facility] 2 13:46:26 51062 atorvasta tin medicatio n myalgias (muscle pain) Not available Not available 01/22/2016 43033 RxNorm ANGIE Soliz [facility] 2 13:46:26 71637 Amitiza medicatio n respirato ry distress moderate Not available 08/19/2017 86565 5 RxNorm ANGIE Soliz [facility] 2 13:46:26 06227 losartan medicatio n cough severe Not available 08/24/20182017 07799 RxNorm ANGIE Bojorquez [facility] 2 10:33:23 83481 rosuvasta tin medicatio n arthralgi a (joint pain) dizziness mild mild Not available 01/10/2019 96649 2 RxNorm ANGIE Soliz, [facility] 2 13:46:26 73800 cetirizin e medicatio n Not available Not available Not available 01/16/20202015 74654 RxNorm ANGIE Soliz, [facility] 2 13:46:26 57716 fluticaso ne Not available hives Not available Not available 01/16/20202015 63428 RxNorm ANGIE Bojorquez [facility] 2 10:33:18 68718 lubiprost one medicatio n Not available Not available Not available 01/16/20202017 54136 3 RxNorm ANGIE Bojorquez [facility] 2 10:33:26 29546 plecanati de medicatio n Not available Not available Not available 01/16/20202017 68558 52 RxNorm ANGIE Bojorquez, [facility] 2 10:33:28 84018 letrozole medicatio n myalgias (muscle pain) moderate Not available 01/16/2020 74785 RxNorm ANGIE Soliz, [facility] 2 13:46:26 03788 Paxlovid medicatio n facial swelling moderate low 10/20/20232023 CARLOS Ellington, [facility] 4 09:48:06 4655 Flonase medicatio n hives Not available Not available 04/30/2014 90956 RxNoANGIE Bill, [facility] 2 13:46:26 4656 lisinopri l medicatio n angioedem a Not available Not available 04/30/2014 68432 EdouardNoANGIE Bill [facility] 2 13:46:26 4657 pravastat in sodium medicatio n myalgias (muscle pain) Not available Not available 04/30/2014 81782 4 RxNorm LeanneANGIE Dow [facility] 2 13:46:26 4658 Zyrtec medicatio n other Not available Not available 04/30/2014 30214 RxNorm abdom inal pain LeanneANGIE Rosales [facility] 2 13:46:26 74033 doxycycli ne Not available nausea moderate Not available 10/29/2024 3640 RxNorm 2023 LeanneANGIE Dow [facility] 5 10:30:34 Medications Name Sig Start Date Stop Date Status Note LastModified by Organization Details LastModified Time verapamil ER (SR) 120 mg tablet,ex tended release TAKE 1 TABLET BY MOUTH EVERY DAY 12/28 completed Not Available Not Available Not Available Miralax 17 gram oral powder packet Take 17 g by oral route. 03/09 completed Not Available Not Available Not Available losartan 50 mg tablet TAKE 1 TABLET BY MOUTH EVERY DAY 08/24 completed Not Available Not Available Not Available cyclobenz aprine 10 mg tablet EVERY THREE HOURS, NEEDED 10/03 completed RECORDED 10/11/20 13 7:44AM BY QUINN Jacobson MD, MEDICATI ON AUTO-EVER CTIVATIO N; Not Available Not Available Not Available prednison e 10 mg tablet Tapering dose by mouth: 5 daily for 2d, then 4 daily for 2d, then 3 daily for 2d, the 2 daily for 2d, the 1 daily for 2d. 06/26 completed Not Available Not Available Not Available doxycycli ne hyclate 100 mg capsule TAKE 1 CAPSULE BY MOUTH TWICE A DAY FOR 10 DAYS 10/29 completed Not Available Not Available Not Available Calan SR 240 mg tablet,ex tended release 04/28 completed Not Available Not Available Not Available Saline Mist 0.65 % nasal spray aerosol Take 1 spray every 6-8 hours by nasal route for 10 days. 10/06 completed Not Available Not Available Not Available diltiazem ER 180 mg capsule,2 4 hr,extend ed release Take 180 mg by oral route. 09/08 completed Not Available Not Available Not Available verapamil 40 mg tablet Take 40 mg by oral route. 04/28 completed Not Available Not Available Not Available trazodone 50 mg tablet Take 25 mg by oral route. 09/08 completed Not Available Not Available Not Available atorvasta tin 10 mg tablet Take 1 tablet every day by oral route for 30 days. 12/01 completed myalgia Not Available Not Available Not Available azithromy kelley 250 mg tablet TAKE 2 TABLETS (500 MG) BY ORAL ROUTE ONCE DAILY FOR 1 DAY THEN 1 TABLET (250 MG) BY ORAL ROUTE ONCE DAILY FOR 4 DAYS 10/29 completed Not Available Not Available Not Available ofloxacin 0.3 % eye drops 05/25 completed Not Available Not Available Not Available fluconazo le 150 mg tablet Take 1 tablet every day by oral route for 1 day. 07/15 completed Not Available Not Available Not Available meloxicam 15 mg tablet Take 1 tablet every day by oral route as needed. 08/24 completed Not Available Not Available Not Available Medrol (Pb) 4 mg tablets in a dose pack Take taper as directed 03/09 completed Not Available Not Available Not Available prednison e 20 mg tablet TAKE 2 TABLETS BY MOUTH ONCE DAILY FOR 5 DAYS WITH FOOD OR MILK 06/28 completed Not Available Not Available Not Available verapamil ER (SR) 180 mg tablet,ex tended release Take 1 tablet every day by oral route for 90 days. 12/18 completed Not Available Not Available Not Available meclizine 12.5 mg tablet Take 1 tablet 3 times a day by oral route as needed for 5 days. 02/18 completed Not Available Not Available Not Available amlodipin e 2.5 mg tablet Take 1 tablet every day by oral route. 08/30 completed Not Available Not Available Not Available metronida zole 500 mg tablet Take 1 tablet every 12 hours by oral route for 7 days. 07/15 completed Not Available Not Available Not Available chlorthal idone 25 mg tablet TAKE 1 TABLET EVERY DAY BY ORAL ROUTE FOR 90 DAYS, FOR HTN. 12/18 completed Not Available Not Available Not Available fexofenad ine 180 mg tablet Take 1 tablet by oral route. active Takes 5 times weekly Not Available Not Available Not Available ciproflox acin 250 mg tablet TAKE 1 TABLET BY MOUTH EVERY 12 HOURS FOR 3 DAYS 04/28 completed Not Available Not Available Not Available amlodipin e 5 mg tablet TAKE 1 TABLET DAILY active Not Available Not Available No t Available lovastati n 10 mg tablet Take 1 tablet by mouth daily 2014 active Not Available Not Available Not Avai lable aspirin 81 mg tablet,de layed release 09/08 completed Not Available Not Available Not Available doxycycli ne monohydra te 100 mg tablet Take 100 mg by oral route. 04/28 completed Not Available Not Available Not Available guaifenes in 100 mg/5 mL oral liquid Take 10 mL every 4-6 hours by oral route as needed for 10 days. 09/16 completed Not Available Not Available Not Available amoxicill in 500 mg tablet 500 mg by oral route. 08/26 completed Not Available Not Available Not Available verapamil 120 mg tablet Take 1 tablet every day by oral route. 11/17 completed Not Available Not Available Not Available oxycodone -acetamin ophen 5 mg-325 mg tablet EVERY 6 HOURS NEEDED 02/05 completed RECORDED 02/08/20 13 10:16AM BY SHAILA STEEN, PA-C, MEDICATI ON AUTO-EVER CTIVATIO N; Not Available Not Available Not Available amoxicill in 875 mg tablet Take 1 tablet twice a day by oral route for 10 days. active Not Available Not Available No t Available lorazepam 0.5 mg tablet Take 1 tablet as needed by oral route for 5 days. 12/18 completed Not Available Not Available Not Available methocarb héctor 750 mg tablet Take 1 tablet 3 times a day by oral route for 5 days. 12/08 completed Not Available Not Available Not Available pravastat in 10 mg tablet AT BEDTIME 09/01 completed RECORDED 09/01/20 13 11:24AM BY FLORA VERGARA MA, OFFICE VISIT; Not Available Not Available Not Available sulfaceta mide sodium 10 % eye drops 02/24 completed Not Available Not Available Not Available benzonata te 100 mg capsule TAKE 1 CAPSULE BY MOUTH THREE TIMES A DAY FOR 5 DAYS 10/28 completed Not Available Not Available Not Available prednisol one sodium phosphate 1 % eye drops 05/25 completed Not Available Not Available Not Available cephalexi n 500 mg capsule TAKE 1 CAPSULE BY MOUTH 4 TIMES A DAY FOR 10 DAYS 06/28 completed Not Available Not Available Not Available clotrimaz ole-betam ethasone 1 %-0.05 % topical cream PLEASE SEE ATTACHED FOR DETAILED DIRECTIO NS 09/19 completed Not Available Not Available Not Available nystatin- triamcino lone 100,000 unit/g-0. 1 % topical cream APPLY TO THE AFFECTED AREA(S) BY TOPICAL ROUTE 2 TIMES PER DAY IN THEMORNI NG AND EVENING active Not Available Not Available No t Available indapamid e 1.25 mg tablet Take 1.25 mg by oral route. 09/08 completed Not Available Not Available Not Available Advil 200 mg tablet Take 1 tablet every 6 hours by oral route. 11/17 completed for dental work Not Available Not Available Not Available omeprazol e 20 mg capsule,d elayed release TAKE 1 CAPSULE DAILY active Not Available Not Available No t Available aspirin 81 mg chewable tablet 81 mg by oral route. 04/13 completed Not Available Not Available Not Available Arimidex 1 mg tablet DAILY 11/10 completed RECORDED 11/10/19 13 9:40AM BY FLORA VERGARA MA, OFFICE VISIT; Not Available Not Available Not Available diclofena c sodium 75 mg tablet,de layed release active Not Available Not Available Not Available monteluka st 10 mg tablet Take 10 mg by oral route. 09/08 completed Not Available Not Available Not Available aspirin 81 mg tablet Take 81 mg by oral route. 09/08 completed Not Available Not Available Not Available hydrochlo rothiazid e 25 mg tablet Take 1 tablet every day by oral route for 90 days. 06/05 completed Not Available Not Available Not Available Synthroid 112 mcg tablet TAKE 1 TABLET TUESDAY THROUGH TUESDAY , SKIP SUNDAYS active Not Available Not Available No t Available gabapenti n 100 mg capsule TAKE 1 CAPSULE BY MOUTH THREE TIMES A DAY DIRECTED FOR 30 DAYS active Not Available Not Available No t Available metoprolo l succinate ER 25 mg tablet,ex tended release 24 hr TAKE 1 TABLET BY MOUTH EVERY DAY 05/24 completed Not Available Not Available Not Available nystatin 100,000 unit/gram topical powder APPLY TO THE AFFECTED AREA(S) BY TOPICAL ROUTE 2 TIMES PER DAY 01/15 completed Not Available Not Available Not Available epinephri ne 0.3 mg/0.3 mL injection , auto-inje ctor USE DIRECTED FOR ANAPHYLA XIS AND CALL 911 active Not Available Not Available No t Available ibuprofen 600 mg tablet Take 1 tablet 3 times a day by oral route as needed for 30 days. active Not Available Not Available No t Available albuterol sulfate HFA 90 mcg/actua tion aerosol inhaler Inhale 2 puffs as needed by inhalati on route for 30 days. 06/28 completed Not Available Not Available Not Available verapamil ER 240 mg 24 hr capsule,e xtended release Take 240 mg by oral route. 04/28 completed Not Available Not Available Not Available amoxicill in 875 mg-potass ium clavulana te 125 mg tablet TAKE 1 TABLET BY MOUTH EVERY 12 HOURS DIRECTED FOR 10 DAYS 01/17 completed Not Available Not Available Not Available magnesium 250 mg (as magnesium oxide) tablet Take 1 tablet every day by oral route. 01/17 completed Not Available Not Available Not Available paroxetin e ER 12.5 mg tablet,ex tended release 24 hr DAILY active Not Available Not Available Not Available Restasis 0.05 % eye drops in a dropperet te USE ONE DROP IN EACH EYE TWICE DAILY. 03/11 completed Not Available Not Available Not Available rosuvasta tin 5 mg tablet TAKE 1 TABLET DAILY IN THE EVENING active Not Available Not Available No t Available Klor-Con M20 mEq tablet,ex tended release TAKE 1 TABLET BY MOUTH EVERY DAY 06/03 completed Not Available Not Available Not Available omeprazol e magnesium 20 mg tablet,de layed release 20 mg by oral route. 04/13 completed Not Available Not Available Not Available polyoxyet hylene ether powder Take 0.5 g every day by miscell. route. 08/30 completed Not Available Not Available Not Available Flovent HFA 110 mcg/actua tion aerosol inhaler Inhale 1 puff twice a day by inhalati on route. 02/05 completed Not Available Not Available Not Available Marquita-D 24 Hour 180 mg-240 mg tablet,ex tended release Take 1 tablet every day by oral route. 02/18 completed Not Available Not Available Not Available multivita min take once daily active Not Available Not Available No t Available Baby Aspirin 1 tab daily orally 08/30 completed Not Available Not Available Not Available elderberr y fruit 2 gummies daily active Not Available Not Available No t Available hydrocodo ne 5 mg-acetam inophen 300 mg tablet EVERY 4 HRS 10/03 completed RECORDED 10/11/20 13 7:44AM BY QUINN Jacobson MD, MEDICATI ON AUTO-EVER CTIVATIO N; Not Available Not Available Not Available cholecalc iferol (vitamin D3) 25 mcg (1,000 unit) tablet Take 1 tablet 3 times a week by oral route. 06/28 completed Not Available Not Available Not Available Symbicort 160 mcg-4.5 mcg/actua tion HFA aerosol inhaler Inhale 1 puff twice a day by inhalati on route as needed for 30 days. 09/19 completed Not Available Not Available Not Available Amitiza 8 mcg capsule 08/06 completed Not Available Not Available Not Available olopatadi ne 0.6 % nasal spray [place] 2 sprays twice a day by intranas al route as needed for allergie s for 30 days. active Not Available Not Available No t Available cholecalc iferol (vitamin D3) 50 mcg (2,000 unit) capsule 09/08 completed Not Available Not Available Not Available GaviLyte- G 236 gram-22.7 4 gram-6.74 gram-5.86 gram oral solution TAKE 8 OUNCE BY MOUTH DIRECTED FOLLOW INSTRUCT IONS PROVIDED TO YOU BY DOCTORS OFFICE 06/28 completed Not Available Not Available Not Available glucosami ne 375 mg-chondr oit-msm no1 500 mg-C 15 mg-leona 0.5 mg tablet Take 1 tablet every day by oral route. 05/25 completed Not Available Not Available Not Available Aerochamb er Plus Flow-Vu active Not Available Not Available Not Available D3 DOTS 50 mcg (2,000 unit) tablet Take 1 tablet 3 times a week by oral route. active Not Available Not Available No t Available magnesium 400 mg (as magnesium oxide) capsule Take 1 capsule every 72 hours by oral route. 12/30 completed Not Available Not Available Not Available Linzess 290 mcg capsule Take by oral route for 30 days. 08/24 completed Not Available Not Available Not Available Aerochamb er Plus Flow-Vu,L arge Mask TO USE WITH ALBUTERO L INHALER. active Not Available Not Available No t Available Yuvafem 10 mcg vaginal tablet 05/05 completed Not Available Not Available Not Available Trulance 3 mg tablet Take 1 tablet every day by oral route. 08/24 completed Not Available Not Available Not Available Wixela Inhub 250 mcg-50 mcg/dose powder for inhalatio n Inhale 1 puff twice a day by inhalati on route for 30 days. 10/29 completed Not Available Not Available Not Available Glucosami ne Chondroit in 550 mg-30 mg-1 mg capsule Take 1 capsule every day by oral route. active taken winter Not Available Not Available Not Available Ayeshaztri Aerospher e 160 mcg-9mcg- 4.8mcg/ac tuation HFA aerosol inhaler Inhale 1 puff as needed by inhalati on route for 30 days. 08/30 completed Not Available Not Available Not Available QuickVue At-Home COVID-19 Test kit USE DIRECTED 09/16 completed Not Available Not Available Not Available Paxlovid 150 mg-100 mg tablets in a dose pack (Moderate Renal Dose) TAKE 2 TABLETS BY MOUTH TWICE A DAY FOR 5 DAYS *HOLD STATIN* 10/28 completed Not Available Not Available Not Available Vitals Date Recorded Body height Body mass index (BMI) Body weight Heart rate Oxygen saturation Oxygen saturation in Arterial blood by Pulse oximetry Body temperature Systolic And Diastolic Provider Name and Address Organization Details Last Updated DateTime 5 149.86 cm 30.8 kg/m2 80086.4 4 g 86 /min 99 % 99 % 98.1 [degF] 159/78 mm[Hg] Aniya Caporale, [employer] [facility] 5 15:18:46 Date Recorded Systolic And Diastolic Provider Name and Address Organization Details Last Updated DateTime 11/28/2024 156/76 mm[Hg] Yu Green [facility] 11/28/2024 15:49:49 Date Recorded Body height Body mass index (BMI) Body weight Heart rate Oxygen saturation Oxygen saturation in Arterial blood by Pulse oximetry Body temperature Systolic And Diastolic Provider Name and Address Organization Details Last Updated DateTime 5 149.86 cm 30.3 kg/m2 35269.8 6 g 94 /min 97 % 97 % 98.2 [degF] 142/79 mm[Hg] Jay ferrara [facility] 5 11:28:49 Date Recorded Body height Body mass index (BMI) Body weight Heart rate Oxygen saturation Oxygen saturation in Arterial blood by Pulse oximetry Body temperature Systolic And Diastolic Systolic And Diastolic Provider Name and Address Organization Details Last Updated DateTime 5 149.86 cm 30.3 kg/m2 98406.8 6 g 82 /min 98 % 98 % 97.5 [degF] 159/83 mm[Hg] 148/76 mm[Hg] Leanne Sanderson [facility] 5 11:29:36 Date Recorded Body height Body mass index (BMI) Body weight Heart rate Oxygen saturation Oxygen saturation in Arterial blood by Pulse oximetry Body temperature Systolic And Diastolic Provider Name and Address Organization Details Last Updated DateTime 5 149.86 cm 30.1 kg/m2 67162.2 6 g 91 /min 96 % 96 % 98.2 [degF] 147/79 mm[Hg] Ary Ramirez [facility] 5 13:35:56 Date Recorded Body height Body mass index (BMI) Body weight Heart rate Oxygen saturation Oxygen saturation in Arterial blood by Pulse oximetry Body temperature Systolic And Diastolic Provider Name and Address Organization Details Last Updated DateTime 5 149.86 cm 29.9 kg/m2 63243.6 7 g 103 /min 96 % 96 % 96 [degF] 148/80 mm[Hg] Monica Easton [facility] 5 10:35:46 Social History Question Answer Notes LastModified by Organizat ion Details LastModified Time Tobacco Smoking Status Never Smoker Not Available [employer] 08/19/2020 03:36:42 Do You Have An Advance Directive? Yes HCP/ -R s, Friend-Royce [email or web address] Information not available 05/25/2022 Is Blood Transfusion Acceptable In An Emergency? Yes [id number] Information not available 08/19/2020 What Is Your Level Of Caffeine Consumption? Moderate Coffee- Occ Tea- Daily Information not available 10/29/2024 How Much Tobacco Do You Chew? None [id number] Information not available 08/19/2020 What Type Of Diet Are You Following? REGULAR [id number] Information not available 08/19/2020 Which Illicit Or Recreational Drugs Have You Used? None [id number] Information not available 08/19/2020 Do You Take Precautions To Prevent Distracted Driving? Yes Information not available 07/23/2015 How Often Do You Need To Have Someone Help You When You Read Instructions, Pamphlets, Or Other Written Material From Your Doctor Or Pharmacy? Never Information not available 07/23/2015 Have You Served In The ? No Information not available 08/06/2016 Have You Or Anyone In Your Household Had Any Of The Following Symptoms In The Last 14 Days: Sore Throat, Cough, Chills, Body Aches For Unknown Reasons, Shortness Of Breath For Unknown Reasons, Loss Of Smell, Loss Of Taste, Fever At Or Greater Than 100 Degrees Fahrenheit? No Information not available 04/28/2020 Are You Or Anyone In Your Household A Health Care Provider Or Emergency Responder? No Information not available 04/28/2020 To The Best Of Your Knowledge Have You Been In Close Proximity To Any Individual Who Tested Positive For COVID-19? No Information not available 04/28/2020 *AWV ONLY* Are You Presently Prescribed Opioid Medication By PCP Or Specialist? If YES -Provider Assess The Benefit For Other, Non-opioid Pain Therapies Instead, Even If The Patient Does Not Have OUD But Is Possibly At Risk. No Information not available 09/14/2021 Have You Recently Traveled To A [facility]- High Risk Area Or Gathering In The Last 10 Days? No [email or web address] Information not available 03/09/2021 What Was The Date Of Your Most Recent Tobacco Screening? 10/29/2024 Information not available 10/29/2024 How Many Children Do You Have? 0 Information not available 03/05/2022 Do You Use Your Seat Belt Or Car Seat Routinely? Yes Information not available 12/11/2021 Are You Sexually Active? No Information not available 09/14/2021 Do You Have Smoke And Carbon Monoxide Detectors In Your Home? Yes Information not available 12/11/2021 At What Age Did You Start Smoking Tobacco? 1 [id number] Information not available 08/19/2020 Are You Passively Exposed To Smoke? Yes Information not available 07/17/2014 How Much Tobacco Do You Smoke? No [id number] Information not available 08/19/2020 Do You Use Sunscreen Routinely? Yes [id number] Information not available 08/19/2020 How Many Years Have You Smoked Tobacco? 0 [id number] Information not available 08/19/2020 Sex: Unknown Functional Status Question Answer Note LastModified by Organizat ion Details LastModified Time Do you use any illicit or recreational drugs? No Information not available 05/25/2022 Do you or have you ever used any other forms of tobacco or nicotine? No Information not available 05/25/2022 What is your level of alcohol consumption? Occasional wine [id number] Information not available 08/19/2020 Do you or have you ever used smokeless tobacco? Never used smokeless tobacco [id number] Information not available 08/19/2020 Are you currently employed? No retired Information not available 06/15/2021 Are you able to walk independently without assistance or assistive devices? YESWOREST Information not available 05/25/2022 Are you able to care for yourself independently? 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 Never used electronic cigarettes Information not available 05/25/2022 What is your exercise level? Occasional walking [id number] Information not available 08/19/2020 Mental Status None recorded. Family History Relationship Description Onset Age of this Age Resolved Age Notes LastModified by Organization Details LastModified Time Mother Malignant neoplastic disease gliobl astoma multif orm Not available 05/25/2022 15:27:26 Mother Ulcerative colitis Not available 2021 15:27:26 Maternal Grandmother Diabetes mellitus 85 abolcun Not available 2021 11:16:06 Father Heart disease 70 abolcun Not available 2021 11:16:06 Father Cerebrovascu lar accident 69 70 hemorr hagic abolcun Not available 12/11/2021 11:16:06 Paternal Grandfather Heart disease 77 abolcun Not available 2021 11:16:06 Brother Tubular adenoma Not available 2021 15:27:26 Brother Hemochromato sis Not available 2021 15:27:26 Brother Well adult Not availabl e 05/25/2022 15:27:26 Brother Chronic obstructive pulmonary disease 52 abolcun Not available 2021 11:16:06 Brother Arthritis 50 abolcun Not availabl e 12/11/2021 11:16:06 Maternal Aunt Malignant neoplasm of breast 78 80 abolcun Not available 2021 11:16:06 Maternal Aunt Malignant neoplasm of colon 54 55 abolcun Not available 2021 11:16:06 Unspecified Relation Attention deficit hyperactivit y disorder 5 [email or web address] Not available 02/15 10:34:18 Unspecified Relation Disorder of thyroid gland 14 abolcun Not available 2021 11:16:06 Unspecified Relation Malignant neoplasm of lung 65 70 abolcun Not available 2021 11:16:06 Paternal Uncle Heart disease 45 abolcun Not available 2021 11:16:06 Medical History Condition Response Anxiety Disorder N Obesity Y Vision or Eye Problems Y Arthritis Y Polyps Y Breast Cancer Y Acid Reflux (GERD) Y Cancer Y Thyroid Problems Y Allergies Y Asthma Y GI Problems Y Hypothyroidism Y Constipation Y Reflux/GERD Y High Cholesterol Y Hypertension Y Chicken Pox Y Gynecological History Statement/Question Response Date of Last Pap Smear Most Recent Mammogram 03/20/2025 Date of Last Colonoscopy 01/23/2018 Most Recent Bone Density 01/26/2017 Obstetrics History GPAL:G 0 P 0 0 0 0 Immunizations Vaccine Type Date Status Note Provider Nam e and Address Organization Details Recorded Time DT (pediatric) 6 completed ANGIE Soliz [facility] 09/16/2022 13:54:31 influenza, whole 6 completed ANGIE Soliz [facility] 09/16/2022 13:54:31 COVID-19, mRNA, LNP-S, PF, 30 mcg/0.3 mL dose 1 completed ANGIE Soliz [facility] 09/16/2022 13:54:31 COVID-19, mRNA, LNP-S, PF, 30 mcg/0.3 mL dose 1 completed ANGIE Soliz [facility] 09/16/2022 13:54:31 COVID-19, mRNA, LNP-S, PF, 30 mcg/0.3 mL dose 1 completed ANGIE Soliz [facility] 09/16/2022 13:46:54 Influenza, high-dose, trivalent, PF 9 completed ANGIE Soliz [facility] 09/16/2022 13:54:31 Influenza, high-dose, trivalent, PF 8 completed ANGIE Soliz [facility] 09/16/2022 13:54:31 Influenza, high-dose, quadrivalent, PF 0 completed ANGIE Bojorquez [facility] 05/25/2022 15:31:59 Influenza, high-dose, trivalent, PF 6 completed ANGIE Soliz, [facility] 09/16/2022 13:54:31 Influenza, split virus, quadrivalent, PF 5 completed ANGIE Soliz, [facility] 09/16/2022 13:54:31 Td (adult), 2 Lf tetanus toxoid, preservative free, adsorbed 9 completed ANGIE Soliz, [facility] 09/16/2022 13:54:31 pneumococcal polysaccharide PPV23 5 completed ANGIE Soliz, [facility] 09/16/2022 13:54:31 Pneumococcal conjugate PCV 13 4 completed ANGIE Soliz, [facility] 09/16/2022 13:54:31 Influenza, high-dose, trivalent, PF 7 completed ANGIE Soliz, [facility] 09/16/2022 13:54:31 Influenza, high-dose, quadrivalent, PF 1 completed ANGIE Soliz, [facility] 09/16/2022 13:54:31 Influenza, high-dose, quadrivalent, PF 2 completed ANGIE Soliz, [facility] 09/16/2022 13:54:31 COVID-19, mRNA, LNP-S, bivalent, PF, 30 mcg/0.3 mL dose 3 completed ANGIE Shahid, [facility] 06/03/2023 14:03:46 Influenza, split virus, trivalent, preservative 2 completed ANGIE Bojorquez, [facility] 09/14/2021 14:07:37 Tdap 9 completed [facility], [facility] 09/14/2021 14:07:37 influenza, seasonal, intradermal, preservative free 3 completed ANGIE Bojorquez, [facility] [place] 09/14/2021 14:07:37 Influenza, high-dose, quadrivalent, PF 3 completed [facility] Naqvi, [facility] 06/28/2023 11:58:26 Influenza, high-dose, trivalent, PF 5 completed [facility] Sloiz, [facility] 10/29/2024 13:03:13 Past Encounters Encounter ID Performer Location Encounter Start Date Encounter Closed Date Diagnosis/Indication Diagnosis SNOMED-CT Code Diagnosis ICD10 Code Diagnosis IMO Codes Diagnosis Note [id number] autoEComm erce [address] [facility],[address] [place] [address] 07/03/2012 00:00:00 [id number] autoEComm erce [address] [facility],[address] [place] [address] 09/12/2012 00:00:00 [id number] autoEComm erce [address] [facility],[address] [place] [address] 10/04/2012 00:00:00 [id number] autoEComm erce [address] [facility],[address] [place] [address] 11/10/2012 00:00:00 [id number] autoEComm erce [address] [facility],[address] [place] [address] 01/29/2013 00:00:00 [id number] autoEComm erce [address] [facility],[address] [place] [address] 02/09/2013 00:00:00 [id number] autoEComm erce [address] [facility],[address] [place] [address] 05/17/2013 00:00:00 [id number] autoEComm erce [address] [facility],[address] [place] [address] 06/21/2013 00:00:00 [id number] [address]Comm er[address] [place], [place] [address] 08/23/2013 00:00:00 [id number] autoEComm erce [address] [place], [place] [address] 09/01/2013 00:00:00 [id number] autoEComm erce [address] [place] [place], [place] [address] 09/28/2013 00:00:00 [id number] autoEComm erce [address] [place], [place] [address] 10/24/2013 00:00:00 [id number] autoEComm erce [address] [place], [place] [address] 12/24/2013 00:00:00 [id number] autoEComm erce [address] [facility],[address] [place], [place] [address] 03/27/2014 00:00:00 [id number] Quinn Mercado MD Main Office [address] [facility] [address] [place], [place] [address] 05/24/2014 12:56:50 05/24/2014 14:03:44 Pain of multiple joints 40767665 Etiology not obvious. Possible reactive process but given hitory of similar symptoms occurence will screen for autoimmune process as well. Depending on symptom progressio n and lab results would consider a short steroid taper. See if MSAID helps first though. Muscle pain 03211464 [id number] Cameron Xavier MD Main Office [address] [facility] [address] [place], [place] [address] 2014 11:28:10 2014 12:22:15 Chest pain 19104010 Undifferen tiated inflammatory arthritis [id number] Quinn Mercado MD Main Office [address] [facility] [address] [place] [address] 07/17/2014 11:35:29 07/17/2014 12:43:47 Adult health examination 153442033 Will update immunizati on status and screen based on risk factors. Regular dental and ophtho care advised as well as sunscreen and seatbelt use. Distracted driving discussed. Colon, breast and cervical cancer screening are utd. Pt currently demontrate s no significan t cognitive decline or risk for falls. Advance directives discussed and in place. Needs infl uenza immunization 056623045 Postoperat kodi hypothyroidism 77659101 Clinically and biochemica lly euthyroid. Conitnu current dose. Osteopenia 116350574 Will reasess. Regular weight bearing exercise and adequate dietary Ca/Vit D intake advised. Essential hypertension 53881253 Fair control. Continue current regimen. Administra tion of pneumococcal vaccine 83766316 Obesity 889580317 Potentia l [facility] health consequenc es discussed. Healthier diet and exercise habits advised. [id number] Quinn Mercado MD Main Office [address] [address] [place] [address] 01/20/2015 15:07:07 01/20/2015 15:59:48 Essential hypertension 98032746 Fair control. Continue current regimen. Gastroesop hageal reflux disease 784008558 Well controlled without warning signs/symp toms. Continue current regimen. Pure hypercholesterolemia 164735053 10 yr CV risk =7.9%. Discussed resuming statin based on this but she would like to make another go at [facility]. Reassess in 6 months. Pain of joint of hand Has history of OA. Seen by rheum in the past. Will re-establi care. [id number] JUDY Mohamud Main Office [address] [address] [place] [address] 02/18/2015 13:00:08 02/18/2015 13:46:18 Allergic rhinitis 49125790 add marquita and mucinex. if not improving by tuesday call and we can do a prednisone burst [id number] JUDY Sampson Main Office [address] [address] [place] [address] 03/07/2015 15:05:21 03/07/2015 16:04:13 Edema 665055243 Recent sinus infection that is getting better and had developed edema, last time this happened she had Parvovirus . Will check blood work. She recently started diclofenac and is on verapamil- the combinatio n may be causing edema, she could consider changing diclofenac . If blood work negative and sx persist will refer to vascular surgery for eval. Compressio n and elevation as discussed. [id number] Quinn Mercado MD Main Office [address] [address] [place] [address] 03/28/2015 13:24:32 03/28/2015 14:18:49 Cough 59248136 Most likely allergy/as thma related, less likely GERD. Continue current regimen. Call if persistent /worse. Asthma 634619267 Singulair functionin g well as controller med. Will provide rescue inhaler. Anemia 122568137 Mild, alexander l reassess before next appt. [id number] Cameron Xavier MD Main Office [address] [place] [address] [place] [address] 05/06/2015 16:17:55 05/06/2015 16:50:59 Candidiasis of skin 36828491 [id number] Quinn Mercado MD Main Office [address] [place], [place] [address] [address] 07/23/2015 13:02:40 07/23/2015 14:06:19 Adult health examination 861654281 Z00.00 Will update immunizati on status and screen based on risk factors. Zostavax advised via local pharmacy. Regular dental and ophtho care advised as well as sunscreen and seatbelt use. Distracted driving discussed. Colon, breast and cervical cancer screening are utd. Pt currently demontrate s no significan t cognitive decline or risk for falls. Advance directives discussed and in place. At [facility] risk for falls 577948869 Z91.81 Needs infl uenza immunization 662087014 Z23 Body mass index 30+ - obesity 064506300 E66.9 Administra tion of pneumococcal vaccine 56059277 Z23 Essential hypertension 52628841 I10 Well controlled . Continue current regimen. 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 Will resume previously effective statin. [id number] Quinn Mercado MD Main Office [address] [facility] [address] [place] [address] 10/31/2015 14:53:57 10/31/2015 15:40:51 Recurrent parotitis 337886153 K11.20 Possibly infection related. Will see if course of abx helps. INB/worse will need further evaluation . Cervical lymphadenopathy 688603513 R59.0 small, likely reactive. Question is if it's allergy vs infection related. See if labs afford any additional differenti ation. [id number] Quinn Mercado MD Main Office [address] [facility] [address] [place] [address] 11/21/2015 13:28:06 11/21/2015 14:31:34 Essential hypertension 17596304 I10 Fair control. Continue current regimen. Pure hypercholesterolemia 228051875 E78.0 10 yr CV risk =9.1%. Will try different statin and titrate to goal LDL <130 as tolerated. Asthma 926457656 J45.90 9 Singulair previously worked well as controller med. Will resume and refer to pulmonary for further evaluation and treatment recommenda tions. Dyspnea 745503588 R06.00 Likely all asthma related, but based on duration and her comorbidit es will evaluate further to firm up the diagnosis. [id number] Quinn Mercado MD Main Office [address] [address] [place] [address] 01/22/2016 13:23:53 01/22/2016 14:28:04 Gastroesophageal reflux disease 684011116 K21.9 Having breakthru symptoms with ? history of Barretts. Will ask GI if further evaluation is warranted. Essential hypertension 26036025 I10 Fair control. Continue current regimen. Pure hypercholesterolemia 351758618 E78.0 10 yr CV risk =9.1%, intolerant to several statins. Will defer another trial for now. Alkaline p hosphatase above reference range 735554612 R74.8 [id number] Reese Salomon PA-C Main Office [address] [facility] [address] [place] [address] 03/30/2016 14:22:19 03/30/2016 16:19:35 Edema 958722315 R60.9 Chest pain 60535000 R07. 9 Essential hypertension 18893438 I10 Pure hypercholesterolemia 837020748 E78.0 [id number] Reese Salomon PA-C Main Office [address] [address] [place] [address] 04/07/2016 12:55:38 04/07/2016 14:30:44 Chest pain 51352334 R07.9 atypical - different pain today than last week's visit - ? d/t underlying IBS-C f/u c card 7.6.16 Edema 834347948 R60.9 offered re-assuran ce - is d/t CVI Essential hypertension 21124118 I10 Asthma 849237177 J45.90 9 Irritable bowel syndrome 25940327 K58.9 Non-alcoho lic fatty liver 892780031 K76.0 offered re-assuran ce - NL ast/alt, and alk phos has trended down and curr is only minimally elevated - pt has been walking lately Body mass index 30+ - obesity 259689778 Z68.32 [id number] Quinn Mercado MD Main Office [address] [address] [place] [address] 06/17/2016 11:32:36 06/17/2016 12:40:25 Pure hypercholesterolemia 532508913 E78.0 10 yr CV risk =10.8%, intolerant to several statins. Will try low dose rosuvastat in. Essential hypertension 19893623 I10 Well controlled . Continue current regimen. Gastroesop hageal reflux disease 321057783 K21.9 Stable and requiring PPI therapy. GI is following. Needs infl uenza immunization 277111898 Z23 [id number] Quinn Mercado MD Main Office [address] [place] [address] 08/06/2016 11:04:24 08/06/2016 12:15:07 Adult health examination 544614746 Z00.00 Immunizati on status and screening utd based on risk factors. Zostavax advised via local pharmacy. Regular dental and ophtho care advised as well as sunscreen and seat belt use. Distracted driving discussed. Colon, breast and cervical cancer screening are utd. Pt currently demonstrat es no significan t cognitive decline or risk for falls. Advance directives discussed and in place. Body mass index 30+ - obesity 523708610 Z68.30 Menopause present 819988 006 Z78.0 Postoperat kodi hypothyroidism 27810747 E89.0 Clinically and biochemica lly euthyroid. Continue current dose. Alkaline p hosphatase above reference range 532266701 R74.8 Has been stable will follow. Impaired f asting glycemia 018285530 R73.01 Pure hypercholesterolemia 589531563 E78.01 On low dose statin with excellent response and tolerance. Continue current dose. [id number] Quinn Mercado MD Main Office [address] [facility] [address] [place] [address] 01/07/2017 15:28:37 01/07/2017 16:44:32 Essential hypertension 02370544 I10 Fair control. Continue current regimen. Pure hypercholesterolemia 259502409 E78.01 On low dose statin with excellent response and tolerance. Continue current dose. Impairment of balance 38 9426552 R26.89 this accompanyi ng memory and intermitte nt vision issues post fall warrants imaging to rule out mass/scler otic lesions/va scualr changes. Mild memor y disturbance 340936048 R41.3 Will evaluate and treat further depending on degree of symptoms and imaging results. Postoperat kodi hypothyroidism 77760624 E89.0 Clinically and biochemica lly euthyroid. Continue current dose. [id number] Quinn Mercado MD Main Office [address] [facility] [address] [place] [address] 05/05/2017 15:17:58 05/05/2017 16:13:56 Essential hypertension 55698121 I10 Fair control. Continue current regimen. Pure hypercholesterolemia 265689275 E78.01 WIll again reassess off of statin. Pt advised of potential benefits associated with therapy. Joe in context of comorbidit ies. Osteopenia 436069665 M85 .9 Regular weight bearing exercise and adequate dietary Ca/Vit D intake advised. Small vess el cerebrovascular disease 634404740 I67.9 On asa with good BP control. Stain therapy discussed as above. [id number] Quinn Mercado MD Main Office [address] [facility] [address] [place] [address] 08/19/2017 10:20:17 08/19/2017 11:33:42 Adult health examination 366383303 Z00.00 Will update immunizati on status shingles advised via local pharmacy. Will screen based on risk factors. Regular dental and ophtho care advised as well as sunscreen and seat belt use. Distracted driving discussed. Colon, breast and cervical cancer screening are utd. Pt currently demonstrat es no significan t cognitive decline or risk for falls. Advance directives discussed and in place. Influenza vaccine needed 3890922511 106 Z23 Low back pain 936503052 M54.5 Possible radiculopa thy without severe symptoms currently. Will try 6 weeks of PT and assess further if persistent /worse at f/u. Obesity 956143108 E66.9 Potential superintendent terminal health consequenc es discussed. Healthier diet and exercise habits advised. Body mass index 30+ - obesity 517872282 Z68.32 Mild inter mittent asthma 982329680 J45.20 Well controlled , followed by plaster patternmaker. Small vess el cerebrovascular disease 256047063 I67.9 On asa with good BP control. Stain therapy discussed and pt will try resuming rosuvastat in. Essential hypertension 44072636 I10 Obstructiv e sleep apnea syndrome 29505740 G47.33 Symptoms well controlled . Followed by sleep medicine Gastroesop hageal reflux disease 080059407 K21.9 Stable and requiring PPI therapy. GI is following. Pure hypercholesterolemia 206553261 E78.01 Titrate dose as tolerated to goal LDL <100. Postoperat kodi hypothyroidism 15982608 E89.0 Clinically and biochemica lly euthyroid. Continue current dose. Follow with Dr. Wright. History of malignant neoplasm of breast 478246505 Z85.3 Folowed by oncology. [id number] Quinn Mercado MD Main Office [address] [facility] [address] [facility] [place] [address] 10/05/2017 10:27:59 10/05/2017 11:30:04 Essential hypertension 27616988 I10 Well controlled . Continue current regimen. Pure hypercholesterolemia 216552417 E78.01 Pt declines resuming statin despite understand ing potential benefit from these meds. Chronic low back pain 27 2351339 M54.5 Has history of disc disease with new right sided radicular symptoms. Will image and consute PMR. [id number] Quinn Mercado MD Main Office [address] [facility] [address] [facility] [place] [place] [address] 01/03/2018 14:08:06 01/03/2018 15:34:23 [id number] Reese Salomon PA-C Main Office [address] [facility] [address] [place] [address] 01/04/2018 11:06:40 01/04/2018 12:11:02 Mild intermittent asthma 558476537 J45.21 cannot tolerate ICS d/t flonase allergy - rec f/u c plaster patternmaker - ? can try alternativ e or re-try ICS under careful watch by plaster patternmaker, ? refer back to Dr. Norris? Atypical chest pain 1025 30848 R07.89 not pain more so pressure, not worse c ex (did ex bike recently s problem and can walk upstairs fine s sob) - neg cardiac w/u at ER -- rec re-try meloxicam - take qd - pt states has at home Dyspnea 398531367 R06.00 seen in ER 2 days ago - no evidence of PE - cont f/u c plaster patternmaker meanwhile - cont singulair as dir, prn use of proair, cannot take ICS d/t allergy (flonase) she is very irritable (? d/t being on pred recently) - no evidence of costochond ritis, no cough - ? underlying anxiety and/or depression (psychosom atic c/o) - no tolerate paxil in past [id number] Quinn Mercado MD Main Office [address] [address] [place] [address] 02/24/2018 13:58:40 02/24/2018 15:24:30 Essential hypertension 74020746 I10 ? if verapamil is contributi ng to constipati on. Will try ARB given her histpry of ACEI reaction. COntiue diuretic for now. Pure hypercholesterolemia 034694629 E78.01 Pt declines resuming statin despite understand ing potential benefit. Constipation 07500185 K5 9.00 Gastroesop hageal reflux disease 990870451 K21.9 Stable and requiring PPI therapy. GI is following as well. Chronic constipation 236 731807 K59.09 [id number] Quinn Mercado MD Main Office [address] [facility] [address] [facility] [place] [place] [address] 03/16/2018 14:34:17 03/16/2018 15:49:58 Pain in right knee 4602755801 32532 M25.561 ? OA vs soft tissue vs patellar etiology. Will start with imaging. Is significan t OA present will refer to ortho if not then PMR vs rheum depending on lab results. Cramp in lower limb 4499 35291 R25.2 Has risk for low Mg on PPI and HCTZ. Will supplement along with good hydration. Fatigue 85432999 R53.83 Pain of mu ltiple joints 75528624 M25.50 Etiology not obvious. Possible reactive process but given history of similar symptoms occurence will screen for inflammato ry process as well. See if NSAID helps, consider rheum follow up if significan t inflammati on present. [id number] Quinn Mercado MD Main Office [address] [facility] [address] [facility] [place] [address] 04/28/2018 10:38:08 04/28/2018 11:41:00 Essential hypertension 85329711 I10 Doing well off of verapamil. Increased HR is likely related to this and mild hyperthyro id state. Will continue current regimen and monitor. Atypical chest pain 1025 66321 R07.89 Resolved, sounds gastric. Will review ED notes/resu lts and attend to any loose ends. Call if symptoms recure joe if exertional . Postoperat kodi hypothyroidism 78107636 E89.[address] Reyes Mora. Supplement dose recently adjusted. Having repeat labs. [id number] Quinn Mercado MD Main Office [address] [facility] [address] [place] [address] 08/24/2018 14:14:57 08/24/2018 15:27:50 Adult health examination 823410717 Z00.00 Immunizati on status updated, Shingrix advised via local pharmacy. Will screen based on risk factors. Regular dental and ophtho care advised as well as sunscreen and seat belt use. Distracted driving discussed. Colon, breast and cervical cancer screening are utd. Pt currently demonstrat es no significan t cognitive decline or risk for falls. Advance directives discussed and in place. Essential hypertension 40324682 I10 Home BP <140/90. On diuretic only. Had trouble with ACEI, ARB and CCB in the past. Will contiune diuretic only for now. Pure hypercholesterolemia 221427102 E78.01 Pt declines resuming statin despite understand ing potential benefit. Influenza vaccine needed 4496769796 106 Z23 Varicella vaccination 68 974978 Z23 Obstructiv e sleep apnea syndrome 66994972 G47.33 Symptoms well controlled . Followed by sleep medicine Body mass index 30+ - obesity 262213011 Z68.32 Gastroesop hageal reflux disease 607457416 K21.9 Stable and requiring PPI therapy. GI is following as well. Postoperat kodi hypothyroidism 64655049 E89.[address] Reyes Mora. Supplement dose recently adjusted. Having repeat labs. Osteopenia 405783952 M85 .9 Regular weight bearing exercise and adequate dietary Ca/Vit D intake advised. Due for bnd 01/2019 Obesity 544054248 E66.9 Potential [facility] health consequenc es discussed. Healthier diet and exercise habits advised. Mild inter mittent asthma 449441000 J45.20 Well controlled , followed by plaster patternmaker. Small vess el cerebrovascular disease 794509307 I67.9 On asa with good BP control. Stain therapy discussed and pt continues to decline. History of malignant neoplasm of breast 204794181 Z85.3 Folowed by oncology. Vitamin D deficiency 347 14226 E55.9 [id number] Denise vail MD Main Office [address] [facility] [address] [place] [address] 12/01/2018 08:58:43 12/01/2018 10:11:00 Cough 53454275 R05 Await CXR if negative and labs normal would try prednisone . ADDENDUM: CXR negative, will do medrol dosepack Candidal intertrigo 2661 99202 B37.2 keep clean and dry Chest pain 14979984 R07. 1 EKG and case reviewed with Dr Mercado. The EKG is without significan t change from prior., non specific T wave changes. Will have pt do labs and CXR stat. ADDENDUM: troponin neg, cbc normal Ddimer and bmp pending, CXR neg, pt notified. Will try advil 400-600 mg every 6 hours. Advised to call or go to ED if worsening or not responding to medication . ADDENDUM: BMP ok BS 136; Ddimer still pending, should be ready by 9 pm, Dr Mercado and pt notified. [id number] Denise vail MD Main Office [address] [facility] [address] [place] [address] 12/15/2018 09:28:33 12/15/2018 10:27:45 Cough 59942097 R05 try saline and steam, otc robitussin DM, if not better consider advair. Likely post viral. Pt had 0.3 cm bilat nodules on CTA, no hx of smoking, recommenda tion is no followup if low risk Cramp 66329371 R25.2 try tonic water once a day, continue magnesium Essential hypertension 29216625 I10 BP controlled , no change for now [id number] Quinn Mercado MD Main Office [address] [facility] [address] [place] [address] 12/21/2018 13:39:45 12/21/2018 14:59:00 Impaired fasting glycemia 425237424 R73.01 Pure hypercholesterolemia 135370773 E78.01 Finally agrees to resume the single statin that she tolerated to help reduce her risk of vascular disease developmen t along with TLC. Cough 40814448 R05 Most likely allergy/as thma related, less likely GERD. Will see if resuming ICS helps. Has appt with her plaster patternmaker on 01/19. Mild inter mittent asthma 380872664 J45.20 Essential hypertension 08487880 I10 Home BP <140/90. On diuretic only. Had trouble with ACEI, ARB and CCB in the past. Will continue diuretic only for now. Cramp 74911380 R25.2 Adequate hydration advised. [id number] Quinn Mercado MD Main Office [address] [facility] [address] [place] [address] 02/05/2019 09:05:51 02/05/2019 10:30:14 Essential hypertension 03969575 I10 Home BP <140/90. On diuretic only. Had trouble with ACEI, ARB and CCB in the past. Will continue diuretic only for now. Pure hypercholesterolemia 791298827 E78.01 Pt continues to experience intoleranc e to several statins. Declines any further trials. Understand s that statin tx can help reduce her risk of vascular disease developmen t along with TLC. Constipation 71894838 K5 9.00 Had colonoscop y done last year. Symptoms well controlled with OTC fiber and laxative. Gastroesop hageal reflux disease 447791546 K21.9 Stable and requiring PPI therapy. GI is following as well. Small vess el cerebrovascular disease 506681550 I67.9 On asa, needs better better BP control. Statin therapy discussed and pt continues to decline. Hematochezia 827381142 K 62.5 ? related to prolapse seen on colon last year. WIll f/u with GI if persistent /worse. [id number] Quinn Mercado MD Main Office [address] [facility] [address] [place] [address] 08/30/2019 09:31:34 08/30/2019 10:49:40 Adult health examination 964397014 Z00.00 Immunizati on status updated, Shingrix advised via local pharmacy. Will screen based on risk factors. Regular dental and ophtho care advised as well as sunscreen and seat belt use. Distracted driving discussed. Colon, breast and cervical cancer screening are utd. Pt currently demonstrat es no significan t cognitive decline or risk for falls. Advance directives discussed and in place. Influenza vaccine needed [id number] 106 Z23 Requires a tetanus booster 681663096 Z23 Varicella vaccination 68 188565 Z23 Screening for malignant neoplasm of breast 086660415 Z12.39 Obesity 664110253 E66.9 Potential superintendent terminal health consequenc es discussed. Healthier diet and exercise habits advised. Osteopenia 961189953 M85 .9 Regular weight bearing exercise and adequate dietary Ca/Vit D intake advised. Due for bnd. Body mass index 30+ - obesity 074050181 Z68.31 Small vess el cerebrovascular disease 475808462 I67.9 On asa, needs better better BP control. Statin therapy discussed and pt continues to decline. Pure hypercholesterolemia 851880921 E78.01 Pt continues to experience intoleranc e to several statins. Declines any further trials. Understand s that statin tx can help reduce her risk of vascular disease developmen t along with TLC. Postoperat kodi hypothyroidism 57109855 E89.0 Clinically and biochemica lly euthyroid. Working with Dr. Brian in. Will request recent thyroid lab results. Obstructiv e sleep apnea syndrome 72663347 G47.33 Symptoms well controlled . Compliant with CPAP nightly. Followed by sleep medicine Alkaline p hosphatase above reference range 936091085 R74.8 Has been stable will follow. Screening for malignant neoplasm of colon 423260173 Z12.11 Due 2022 Erythrocyt e sedimentation rate above reference range 861826469 R70.0 Will reassess and if elevated consider rheum follow up. [id number] Quinn Mercado MD Main Office [address] [facility] [address] [place] [address] 10/08/2019 09:43:37 10/08/2019 12:19:55 [id number] Quinn Mercado MD Main Office [address] [facility] [address] [place] [address] 11/29/2019 10:59:04 11/29/2019 12:16:35 Pure hypercholesterolemia 669072311 E78.01 Finally tolerating statin with good effect. Continue current dose. Essential hypertension 72449577 I10 Not at goal on diuretic alone. Will resume previously tolerated CCB. Titrate as tolerated to goal <140/90. Paresthesi a of lower extremity 398149019 R20.2 ? tarsal tunnel syndrome vs other neuropathy . EMG if persistent or worse. Monoclonal gammopathy of uncertain significance 262141660 D47.2 Noted on recent specialist labs. Will reassess. Cervical lymphadenopathy 064949116 R59.0 small, likely reactive from dental issues. Question is if it's allergy vs infection related. See if labs afford any additional differenti ation. U/S inb/worse [id number] Denise vail MD Main Office [address] [facility] [address] [place] [address] 01/16/2020 13:40:52 01/16/2020 16:11:17 Viral syndrome 772992582 B34.9 sx consistent with low grade viral illness. Advised rest, hydration, good sleep, fresh air as able, take temp and call if any fever/chil ls, cough or SOB. No sx of covid at present. Will check back in a week Malaise and fatigue 2718 92426 R53.81 as above. Time spent > 25 min with > 50% counseling and coordinati on. Lymphadenopathy 36024198 R59.0 If this is persistent at followup with Dr Mercado would consider US, pt states not worse, ok waiting for physical check in February, Call if enlarging, labs if not feeling better. [id number] Denise vail MD Main Office [address] [facility] [address] [place] [address] 01/23/2020 11:54:52 01/24/2020 09:01:10 Dizziness 151162205 R42 sound like labyrinthi tis, will try meclizine tid and can take 2 at bedtime if needed, rest, hydration, slow movements, will send info to portal on this. If not improving consider vestibular rehab. Call if any focal neuro sx or vision, hearing changes. Pt cannot take flonase due to allergy, suggested steaming. Time spent > 25 min with > 50% counseling and coordinati on. Gastroesop hageal reflux disease 419272583 K21.0 rx renewal Essential hypertension 74794686 I10 BP controlled , needs med renewed [id number] Quinn Mercado MD Main Office [address] [facility] [address] [facility] [place] [place] [address] 02/19/2020 10:13:10 02/19/2020 13:13:41 Hypertensive disorder 38382078 I10 Well controlled on two agents. Continue current regimen. Acute sinusitis 79557431 J01.90 Suspect this is the cause of her headache and possibly other symptoms. Headache 84079756 R51 Suspect recurrent sinus disease as the cause. WIll need imaging if persistent /worse after completing course of therapy. Essential hypertension 99005527 I10 Impaired f asting glycemia 377641424 R73.01 Will follow with other routine labs in the fall. Pure hypercholesterolemia 965401803 E78.01 Finally tolerating statin with good effect. Continue current dose. Pain of le ft elbow joint 3133515423 1823809 M25.522 Sound like tendinitis . Call inb/worse over next few weeks. Cervical lymphadenopathy 720282313 R59.0 small, likely reactive from allergies. Labs were unremarkab le. Having u/s arranged by Dr. Jewels Mora for further characteri zation. [id number] Fede Bishop MD Telehealt [address] [facility] [address] [place] [address] 03/24/2020 17:33:50 03/25/2020 13:01:52 Urinary tract infectious disease 27297448 N39.0 [id number] Quinn Mercado MD Main Office [address] [facility] [address] [place] [address] 04/28/2020 16:00:11 04/29/2020 08:18:44 Exposure to viral disease 4612082772 96939 Z03.818 Z20.828 Will rule out COVID involvemen t. Asthma 055554283 J45.41 Will see if prednisone helps. Add ICS if allergy agrees. Advised to go to ED if work of breathing worsens. Cough 30231380 R05 Most likely allergy/as thma related, less likely GERD. No evidence of infection but would check CXR inb/worse or if sputum develops. Has appt with her plaster patternmaker in a few days. [id number] Quinn Mercado MD Main Office [address] [place] [address] [place] [address] 09/08/2020 08:59:02 09/08/2020 10:19:36 Adult health examination 777784278 Z00.00 Immunizati on status updated, Shingrix advised via local pharmacy. Will screen based on risk factors. Regular dental and ophtho care advised as well as sunscreen and seat belt use. Distracted driving discussed. Colon, breast and cervical cancer screening are utd. Pt currently demonstrat es no significan t cognitive decline or risk for falls. Advance directives discussed and in place. Influenza vaccine needed 9173768545 106 Z23 Osteopenia 516821083 M85 .9 Regular weight bearing exercise and adequate dietary Ca/Vit D intake advised. Due for bnd. Pure hypercholesterolemia 994172734 E78.01 Finally tolerating statin with good effect. Continue current dose. Advance di rective discussed with patient 052886963 Z71.89 MOLST form provided for both her and her . Will review with HCP and bring to follow up appt. Postoperat kodi hypothyroidism 80145209 E89.0 Clinically and biochemica lly euthyroid. Working with Dr. Brian in. Body mass index 30+ - obesity 404605150 E66.9 Z68.31 Hypertensive disorder 38 394604 I10 Usually well controlled at home. Pt took an NSAID yesterday. Will monitor for now. Small vess el cerebrovascular disease 963623886 I67.9 Not taking ASA, but is on statin. Impaired f asting glycemia 030054751 R73.01 Will follow with other routine labs in the fall. [id number] Jyoti Salomon PA-C Telehealt h [address] [place] [address] [address] [place] [address] 11/17/2020 12:57:20 11/18/2020 08:23:11 Acute asthma 318070039 J45.901 allergic asthma exacerbati on. Advise to increase marquita to daily use and use saline rinse daily as pt. can not use intranasal steroid. STart Medrol dose pack as directed, ADvair D. 250-50 BID and rescue PRN. PT. was encouraged to take montelukas t daily as well. F/u with pulmonary w/i 2 weeks. Allergic rhinitis 979989 04 J30.9 take marquita daily. [id number] Quinn Mercado MD Main Office [address] [place] [address] 03/09/2021 08:28:59 03/09/2021 09:20:02 Hypertensive disorder 14006447 I10 Well controlled , continue current regimen. Pure hypercholesterolemia 029384381 E78.01 Finally tolerating statin with good effect. Continue current dose. Hiatal her idalia with gastroesophageal reflux 766535993 K21.9 Well controlled without warning signs. Continue current regimen. Rx refilled. Chronic hoarseness 24715 11772 105 R49.0 Has appt with ENT Impaired f asting glycemia 505904019 R73.01 Will follow with other routine labs. History of malignant neoplasm of thyroid 439071488 Z85.850 Postoperat kodi hypothyroidism 55146617 E89.0 Clinically and biochemica lly euthyroid. Working with Dr. Brian in. Chronic low back pain 27 5593018 M54.5 Suspect SIJ mediated. Has history of disc disease with new right sided radicular symptoms. WIll try chiropract or and call for PMR referral inb/worse. [id number] Quinn Mercado MD Main Office [address] [address] [place] [address] 05/08/2021 10:49:04 05/08/2021 11:56:19 Low back pain 442766669 M54.5 pt advised to have PT, cannot take nsaid due to allergy , will try salsonpas, heat/ice stretching Neck pain 13480587 M54.2 massage therapy, pt has a person to see for this, check xray to rule out arthritis, if not better with massage will try PT after low back is addressed. [id number] Quinn Mercado MD Main Office [address] [facility] [address] [place] [address] 06/11/2021 09:58:46 06/11/2021 11:01:25 Generalized osteoarthritis 366024977 M15.9 Treatment options limited because of NSAID intoleranc e. Will ask rheum for further advice. Will try some focused PT massage and acupunture . Pain of le ft shoulder joint 6527958921 3975142 M25.512 Wants to follow up with Sonia who performed surgery on her right shoulder in the path. Cervical arthritis 62383 1000 M46.92 Arthritis of facet joint of lumbar spine 8775220960 0858607 M46.96 [id number] Arlene Vann MD Main Office [address] [place] [address] 06/15/2021 14:54:31 06/15/2021 16:25:26 Low back pain 978647103 M54.5 symptoms more consistent with back spasms - msk relaxant sent.patie nt cannot tolerate NSAID thus will do steroid mona.She had an episode of incontinen ce, refused rectal tone exam and understand s risk, unclear if back problem related.Re d flags advised, will refer to [facility]SS[facility] and PT as well.exerc ise provided. [id number] Quinn Mercado MD Telehealt h [address] [facility] [address] [place] [address] 06/26/2021 09:57:00 06/26/2021 13:05:16 Allergic rhinitis 60369173 J30.9 Continue antihistam ine and patient was advised to take 40mg of prednisone daily for 5 days to try and reduce inflammati on/open up sinuses. Consider resuming montelukas t if allergy symptoms persist. Pt should address this with Dr. Cassidy. Acute sinusitis 59974149 J01.90 Quality and duration of symptoms raises concern for secondary bacterial process. Will cover with doxy and see if effective/ tolerated. Advised to call with any problems or inb/worse. Consider sinus imaging/di fferent abx if not responding . [id number] Quinn Mercado MD Main Office [address] [facility] [address] [place] [address] 09/14/2021 13:47:04 09/14/2021 15:17:41 Adult health examination 951684333 Z00.00 Immunizati on status updated, Shingrix advised via local pharmacy. Will screen based on risk factors. Regular dental and ophtho care advised as well as sunscreen and seat belt use. Distracted driving discussed. Colon, breast and cervical cancer screening are utd. Pt currently demonstrat es no significan t cognitive decline or risk for falls. Advance directives discussed and in place. Varicella vaccination 68 577009 Z23 Influenza vaccine needed 5378871502 106 Z23 Pure hypercholesterolemia 411325275 E78.01 Finally tolerating statin with good effect. Continue current dose. Hypertensive disorder 38 927944 I10 Well controlled , continue current regimen. Screening for malignant neoplasm of breast 662925440 Z12.39 Osteopenia 810539523 M85 .9 Regular weight bearing exercise and adequate dietary Ca/Vit D intake advised. Due for bnd. Postoperat kodi hypothyroidism 62226329 E89.0 Clinically and biochemica lly euthyroid. Working with Dr. Brian in. TSH was 1.26 last month. Body mass index 30+ - obesity 849666178 E66.9 Z68.30 Small vess el cerebrovascular disease 210186681 I67.9 Not taking ASA, but is on statin. Impaired f asting glycemia 071062967 R73.01 Will follow with other routine labs in the fall. Multiple n odules of lung 925133536 R91.8 Will arrange follow up. Obstructiv e sleep apnea syndrome 97705869 G47.33 CPAP was recalled, unable to replace soon. Has home sleep study scheduled. Followed by sleep medicine Right uppe r quadrant pain 161502967 R10.11 Screen for gallbladde r disease as contributi ng factor. [id number] Quinn Mercado MD Telehealt h [address] [place] [address] 12/11/2021 08:27:22 12/11/2021 12:35:01 Obstructive sleep apnea syndrome 84045889 G47.33 Followed by sleep medicine, but has not scheduled HST. Advised to do so dom. Postoperat kodi hypothyroidism 61598785 E89.0 Clinically and biochemica lly euthyroid. Working with Dr. Brian in. TSH was 0.61 on 11/23. Cramp 48504499 R25.2 Adequate hydration advised. Screen for low mg. Fatigue 40769874 R53.83 Possibly related to anemia vs electrolyt e derangemen t vs mood disorder. Will start with labs and if normal pt will pursue therapy. Osteopenia 480424628 M85 .9 Will confirm adequate vit D supplement ation. Adjustment disorder with mixed emotional features 05929073 F43.23 Advised to contact her ins to see who is in network. Also gave contact info to Yovnay to get in touch with [facility]. [id number] Denise vail MD Main Office [address] [facility] [address] [place] [address] 12/21/2021 09:53:37 12/21/2021 11:24:16 Hypertensive disorder 26399420 I10 Increase CCB to 180 mg daily. Recommende d low salt diet, exercise, short term followup Memory impairment 058963 006 R41.3 Pt had memory changes, not sure if anxiety or depression related vs cognitive decline. Recommende d neuropsych evaluation , labs and imaging Anxiety state 167534598 F41.1 Recommende d counseling , pt will look into therapist. Hiatal her idalia with gastroesophageal reflux 176407060 K21.9 PPI for 4 weeks, avoid acidic food, caffeine, alcohol, spicy foods, eating before bed. Paresthesia 21121755 R20 .2 labs as noted above, will do followup at next visit [id number] Denise vail MD Main Office [address] [facility] [address] [facility] [place] [address] 01/20/2022 09:49:40 01/20/2022 11:25:58 Hypertensive disorder 22025735 I10 Stay on verapamil 180 mg. Recommende d low salt diet, exercise, short term followup, rx sent Memory impairment 760382 006 R41.3 Pt had memory changes, not sure if anxiety or depression related vs cognitive decline. Pt saw neuropsych , will get notes and review. Anxiety state 203282194 F41.1 Recommende d counseling , pt will look into therapist. Needs support for dealing with who is abuses alcohol and smoking. Hiatal her idalia with gastroesophageal reflux 073989726 K21.9 PPI daily, hx barretts, avoid acidic food, caffeine, alcohol, spicy foods, eating before bed. Followup per Gi recommenda tion [id number] Arlene Vann MD Main Office [address] [address] 03/05/2022 10:33:03 03/05/2022 11:29:55 Pre-surgery evaluation 473368564 Z01.818 Patient is at low risk for cardiopulm onary complicati ons with planned procedure based on comorbidit ies, good exertional tolerance and overall procedure risk. Patient advised to avoid aspirin and NSAIDS for 7 days prior. May proceed to scheduled surgery as planned. Take BP meds am of surgery. Falocn 0.2% EKG normal Bilateral cataracts 9572 2003 H26.9 surgery planned Increased frequency of urination 138575720 R35.0 decreased flow, will check urine first Hypertensive disorder 38 409730 I10 controlled on current meds [id number] Quinn Mercado MD Main Office [address] [address] 03/11/2022 10:14:16 03/11/2022 11:32:02 Hypothyroidism 43067665 E03.9 Normal THS/T4 in Nov via Dr. Jewels Mora. Hypercholesterolemia 136 06496 E78.00 Well controlled . Continue current regimen. Hypertensive disorder 38 439773 I10 Well controlled , continue current regimen. Hiatal her idalia with gastroesophageal reflux 365750139 K21.9 Well controlled without warning signs. Continue current regimen. Rx refilled. [id number] Quinn Mercado MD Main Office [address] [address] 05/25/2022 15:26:58 05/25/2022 16:40:20 Increased frequency of urination 899570150 R35.0 Will recheck urine and consider bladder imaging/ur ology consultati on. If no improvemen t with below. plan. Hypertensive disorder 38 747637 I10 Fair control at home, will increase verapamil to 240mg if >130/90 consistent ly. Pt monitors at home and will call. Vaginitis 84991782 N76.0 Suspect that this is the cause of her urinary symptoms. Will treat for BV and james s. Advised to schedule appt with gta if symptoms persist after completion of treatment. [id number] BALA TERRELL MD Main Office 36[address] [facility] [address] [facility] [place] [address] 07/15/2022 08:59:08 07/15/2022 09:56:47 Fatigue 99059464 R53.83 - pt has been complainin g of intermitte nt fatigue for the last few years- pt is diagnosed with sleep apnea however does not use the CPAP machine, last seen by sleep medicine on 04/2022, this could be contributi ng to symptoms- pt also has several different stresses in her life that could be contributi ng to the fatigue ( smoking, losing her two best friends recently and her second home)- pt currently does not meet criteria for depression or anxiety however pt could benefit from low dose escitalopr am or psychother apy which could help with fatigue and her stressors in her life. This plan was discussed with patient however pt would like to see if blood works yields any results before starting.- ordered TSH, pt has history of hypothyroi dism, CBC to check for anemia and inflammato ry markers as pt has associated joint pain Pain of mu ltiple joints 33107010 M25.50 - diagnosed with OA of multiple joints- last seen by rheumatolo gy on 01/2019 and recommende d to continue taking tylenol PRN for the pain- due to patient's complaint of fatigue ordered RH, BETHANIE and lyme titer for further evaluation Essential hypertension 93618248 I10 - BP on arrival was 149/85 and on repeat 143/80- pt states BP at home is WNL (120/70-13 0/80)- pt currently on HCTZ 25mg Qd and verapamil 180mg for control of her BP- discussed with patient the possibilit y of increasing HCTZ from 25 mg to 50mg however patient stated she does not like taking medication and will not increase at this time- pt counselled to bring BP readings from home at next visit to determine if a increase would be appropriat e and pt agreed with this plan Discussed: -Dietary Approaches to Stop Hypertensi on (DASH) is an eating plan rich in fruits, vegetables , whole grains, fish, poultry, nuts, legumes, and low-fat dairy. These foods are high in lombardo nutrients such as potassium, magnesium, calcium, fiber, and protein. -Advised continued adherence to medication s and low salt diet - extensive counsellin g done regarding dietary habits. -Encourage d regular aerobic exercise 30 min for 4-5 x week. -BP monitoring at home advised to bring log at every visit -Side-effe cts of high BP can cause Stroke, Heart attack and even d/w pt -D/w pt when to call 911 or reach out to Health care provider: >Think you are having a reaction to a medicine you are taking. >Have headaches that keep coming back (recurring ). >Feel dizzy. >Have swelling in your ankles. >Have trouble with your vision. [id number] BALA TERRELL MD Main Office 3640 [facility] [address] [place] [address] 07/22/2022 13:28:20 07/22/2022 14:10:08 Upper respiratory infection 56032960 J06.9 - pt having a dry cough with associated congestion and fatigue- ordered rapid flu testing which was negative- performed RSV testing, awaiting results- c/w fluids- etiology most likely viral in nature however another possible differenti al is allergic rhinitis Nasal congestion 2969950 0 R09.81 - pt has as history of seasonal allergies- pt denies any postnasal drip, however having a dry cough and congestion and on PE eyes were mildly injected- pt is allergic to flonase (rash)- to help with her allergies patient is currently on fexofenadi ne 180mg QD- pt can use some saline spray to help with the congestion Cough 82467401 R05.9 - dry cough- possible differenti als: viral infection vs allergic rhinitis- ordered chest x-ray to ensure no pneumonia- started on guaifenesi n PRN to help with cough [id number] Quinn Mercado MD Main Office [address] [facility] [address] [place] [address] 09/16/2022 13:44:03 09/16/2022 14:57:15 Adult health examination 490048315 Z00.00 Immunizati on status updated, Shingrix advised via local pharmacy. Will screen based on risk factors. Regular dental and ophtho care advised as well as sunscreen and seat belt use. Distracted driving discussed. Colon, breast and cervical cancer screening are utd. Pt currently demonstrat es no significan t cognitive decline or risk for falls. Advance directives discussed and in place. Body mass index 30+ - obesity 626393335 E66.9 Z68.30 Cyst of pancreas 1988353 0 K86.2 States that MRI was recently done by Dr. Robins. Will request reports. Pure hypercholesterolemia 404652148 E78.01 Finally tolerating statin with good effect. Continue current dose. Hypertensive disorder 38 787120 I10 Well controlled , continue current regimen. Screening for malignant neoplasm of breast 276210739 Z12.39 Osteopenia 029338816 M85 .9 Regular weight bearing exercise and adequate dietary Ca/Vit D intake advised. Due for bnd. Postoperat kodi hypothyroidism 58482029 E89.0 Clinically and biochemica lly euthyroid. Working with Dr. Brian in. TSH was 0.66 in Jun. Small vess el cerebrovascular disease 892126043 I67.9 Not taking ASA, but is on statin. Impaired f asting glycemia 368039420 R73.01 Will follow with other routine labs in the fall. Multiple n odules of lung 838913801 R91.8 Benign last year. No risk factors so will defer f/u for now. Obstructiv e sleep apnea syndrome 81035866 G47.33 CPAP was recalled, unable to replace soon. Has home sleep study scheduled. 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 [address] [facility] [place] [address] 10/06/2022 12:46:42 10/06/2022 14:17:49 Acute sinusitis 21389155 J01.90 Hydration, rest, tea with honey, nasal sinus rinses, augmentin as directed x full 10 days. Patient has a hx of needing prednisone , if sx worsen over the next 2 days she will call for script. Avoid triggers, use mask, call/ return for worsening or concerns. Chronic sinusitis 401813 00 J32.9 Hypothyroidism 68645577 E03.9 [id number] Quinn Mercado MD Main Office [address] [address] [place] [address] 01/17/2023 12:52:00 01/17/2023 13:44:32 Hypercholesterolemia 65350002 E78.00 Well controlled . Continue current regimen. Hypertensive disorder 38 760171 I10 Well controlled , continue current regimen. Hiatal her idalia with gastroesophageal reflux 842481149 K21.9 Well controlled without warning signs. Continue current regimen. Rx refilled. Impaired f asting glycemia 460387090 R73.01 Will follow with other routine labs in the fall. Ferguson's ulcer of esophagus 370038774 K22.10 Negative biopsy in 2018. Has GI f/u scheduled in upcoming weeks to determine if f/u EGD is needed. Pure hypercholesterolemia 338992378 E78.01 Finally tolerating statin with good effect. Continue current dose. Major depr ession in remission 30186033 F32.5 [id number] Cameron Xavier MD Main Office [address] [address] [place] [address] 05/02/2023 14:23:55 05/02/2023 16:05:01 Fatigue 52711091 R53.83 Z00.00 Stress 06574430 Z73.3 [id number] Arlene Vann MD Main Office [address] [address] [place] [address] 06/03/2023 13:43:57 06/03/2023 14:27:35 Viral upper respiratory tract infection 867910575 J06.9 Cellulitis of left upper limb 9838720734 7501309 L03.114 ? erythema migrans. Cover for both with doxycyclin e 100 mg BID for 2 weeks. Pt.was advised to take probiotics as well. F/u PRN. Candidal intertrigo 2661 10214 B37.2 [id number] Quinn Mercado MD Main Office [address] [address] [place] [address] 06/28/2023 10:59:40 06/28/2023 12:03:06 Hypertensive disorder 89361852 I10 Not well controlled but current stressors are a mitigating factor. Hiatal her idalia with gastroesophageal reflux 963521529 K21.9 Well controlled without warning signs. Continue current regimen. Rx refilled. Influenza vaccine needed [id number] 106 Z23 Tremor 10041961 R25.1 Mild, neuro referral offered, but declined. Adjustment disorder with depressed mood 42799943 F43.21 Having trouble coping with current life stressors. Working on connecting with a therapist. Declines mediations . [id number] Fede Bishop MD Main Office [address] [facility] [address] [facility] [place], [place] [address] 08/16/2023 15:11:25 08/16/2023 16:03:02 Dysuria 53510697 R30.0 Her urine dip is essentiall y normal so will not start abx but will send for a culture. Essential hypertension 42756633 I10 Unable to tolerate beta arcelia, ACEI or ARB and unwilling to increase her CCB so will add a diuretic. She was given a list of foods high in potassium. She will get her labs done 2-3 weeks after starting the diuretic. [id number] Quinn Mercado MD Main Office [address] [facility] [address] [place] [address] 09/19/2023 12:55:32 09/19/2023 14:06:19 Adult health examination 780038818 Z00.00 Shingrix/C OVID advised via local pharmacy. Will screen based on risk factors. Regular dental and ophtho care advised as well as sunscreen and seat belt use. Distracted driving discussed. Colon, breast and cervical cancer screening are utd. Pt currently demonstrat es no significan t cognitive decline or risk for falls. Advance directives discussed and in place. Chronic low back pain 27 9091403 M54.50 Body mass index 30+ - obesity 905737666 Z68.30 E66.9 Varicella vaccination 68 792043 Z23 Osteopenia 773596824 M85 .9 Regular weight bearing exercise and adequate dietary Ca/Vit D intake advised. Overdue for bnd. Hypothyroidism 39767206 E03.9 Normal THS/T4 in April via Dr. Jewels Mora. Essential hypertension 48075484 I10 Minimal co gnitive impairment 344436562 R41.89 Impaired f asting glycemia 007357062 R73.01 Will follow with other routine labs in the fall. Generalize d anxiety disorder 89288018 F41.1 Bone density finding 385 763358 M85.89 [id number] Arlene Vann MD Main Office [address] [facility] [address] [place] [address] 10/15/2023 13:42:36 10/18/2023 10:29:56 COVID-19 546864471 U07.1 Tylenol OTC, not to exceed package insert for pain or fever q4-6h advised prn.Throat Lozenges otc prn for sore throatsalt water gargleadeq uate hydration enforcedRe st advised.sa line sprayshumi difier use enforced.p axlovid sent, last available kidney function reviewed, advised eua and potential side effects,Ad vised to hold statin half dose amlodipine . Advised to monitor BPAlso advised can use a teaspoon honey for coughisola tion precaution discussedp recaution advised if any difficulty breathing or tmax 103 > go to nearest ED [id number] Quinn Mercado MD Telehealt h [address] [facility] [address] [facility] [place] [address] 10/28/2023 08:42:02 10/28/2023 09:51:55 Acute sinusitis 63613042 J01.90 Quality and duration of symptoms raises concern for secondary bacterial process after COVID. Will cover with azithro (as symptoms are early and mild) and see if effective/ tolerated. Advised to call with any problems or inb/worse. Consider sinus imaging/pr ednisone if not responding . [id number] Quinn Mercado MD Main Office [address] [facility] [address] [facility] [place] [address] 12/19/2023 10:45:22 12/19/2023 12:09:13 Essential hypertension 90937274 I10 Well controlled , continue amlodipine for now. Tachycardia 8795121 R00. 0 Screen for secondary causes, increased hydration advised. Will add low dose BB and titrate as tolerated to goal HR <100. Resting tremor 44380979 G25.2 Needs neuro eval. Pt will call with preference for location ([facility] vs [facility]), as [facility] [place] accommod[place] neuro consults currently. Hypothyroidism 16836978 E03.9 Normal TSH/T4 in July via Dr. Jewels Mora. With tachycardi a needs reassessme nt. Pure hypercholesterolemia 041369763 E78.01 Finally tolerating statin with good effect. Continue current dose. Chronic low back pain 27 4249928 M54.50 Will request PMR notes, discussed gabapentin but pt deferred. PT has worsened symptoms. Pt advised to f/u with Dr. Cong fernandes. EKG: Q wave abnormal 164 460487 R94.31 Abnormalit y has extended into other inferior leads and tachycardi a present. Will revisit cardiology . Recurrent major depression in partial remission 90955513 F33.41 Fair control incontext of chcf stressors. Psychother apy encouraged . [id number] Quinn Mercado MD Main Office [address] [facility] [address] [facility] [place] [address] 01/31/2024 13:25:05 01/31/2024 14:24:46 Tachycardia 9734343 R00.0 Better on low dose BB, but may be affording fatigue. Will try taking at bedtime and continue current dose for now. Consider carvedilol if fatigue persists/w orsens. Chronic low back pain 27 2434699 M54.50 Re establishe d with PMR, pt advised to follow up. Hypothyroidism 63398424 E03.9 Low TSH on recent labs, Dr. Jewels Mora recently decreased his weekly dose. Hyperlipidemia 02680296 E78.5 Fairly well controlled on low dose QOD rosuvastat in. Continue as is for now. EKG: Q wave abnormal 164 974327 R94.31 Has echo cardiogram and stress testing booked. Pain of ri ght shoulder joint 5116133739 1563101 M25.511 Impaired f asting glycemia 835949673 R73.01 Will follow with other routine labs in the fall. Melanocyti c nevus of skin 816851338 D22.9 [id number] Quinn Mercado MD Main Office [address] [facility] [address] [facility] [place] [address] 05/24/2024 14:05:09 05/24/2024 15:18:52 Essential hypertension 82359808 I10 Not well controlled and impacted by anger and frustratio n, pain. Continue amlodipine for now. Tachycardia 5615961 R00. 0 Stopped BB, because of fatigue. Not willing to resume that or any other medication for tachycardi a/HTN. Non-alcoho lic fatty liver 683674698 K76.0 Will monitor Prediabetes 613844174 R7 3.03 Will monitor. Recurrent major depression in partial remission 96132492 F33.41 Not well controlled in context of acute on superintendent terminal stressors. Psychother apy again encouraged . Pure hypercholesterolemia 799256102 E78.01 Finally tolerating statin with good effect. Continue current dose. [id number] Quinn Mercado MD Main Office [address] [facility] [address] [place] [address] 08/07/2024 14:38:57 08/07/2024 15:29:03 Acute sinusitis 14019139 J01.90 Quality and duration of symptoms raises concern for secondary bacterial process after COVID. Will cover with doxy. Advised to call with any problems or inb/worse. Consider sinus imaging/pr ednisone if not responding . Asthma 894341956 J45.41 Unable to afford/com ply with Ch[facility]. Will try to find ICS/LABA that is on her formulary. [id number] Quinn Mercado MD Main Office [address] [facility] [address] [place] [address] 10/29/2024 10:09:39 10/29/2024 11:32:36 Adult health examination 722606113 Z00.00 Shingrix/C OVID advised via local pharmacy. Needs PCV20 based on recent immune testing.Wi ll screen based on risk factors. Regular dental and ophtho care advised as well as sunscreen and seat belt use. Distracted driving discussed. Colon, breast and cervical cancer screening are utd. Pt currently demonstrat es no significan t cognitive decline or risk for falls. Advance directives discussed and in place. Influenza vaccine needed [id number] 106 Z23 65 YEARS AND OLDER Screening for malignant neoplasm of breast 986150680 Z12.39 Bone density finding 385 732727 M85.89 Administra tion of pneumococcal vaccine 84038332 Z23 Needs PCV20 based on recent immune testing Varicella vaccination 68 479315 Z23 Body mass index 30+ - obesity 020726159 Z68.30 E66.9 Osteopenia 401934021 M85 .9 Regular weight bearing exercise and adequate dietary Ca/Vit D intake advised. Overdue for bnd, states that she will go today. Hypothyroidism 03249741 E03.9 Low TSH on recent labs, Dr. Jewels Mora recently decreased his weekly dose. Essential hypertension 11694419 I10 Not well controlled and impacted by anger and frustratio n, pain. Continue amlodipine for now. Minimal co gnitive impairment 698708672 R41.89 Impaired f asting glycemia 495729269 R73.01 Will follow with other routine labs in the fall. Generalize d anxiety disorder 98568842 F41.1 Symptoms improved and currently tolerable. Will monitor. Advance di rective discussed with patient 445018615 Z71.89 MOLST form provided for both her and her . Will review with HCP and bring to follow up appt. Monoclonal immunoglobulin G detected 874636319 R89.4 No Mspike, following with allergy/im munology Multiple n odules of lung 966240840 R91.8 Benign last year. No risk factors so will defer f/u for now. [id number] Arlene Vann MD Main Office [address] [address] 11/28/2024 14:55:50 11/28/2024 15:59:40 Dysuria 25723665 R30.0 Fatigue 69660627 R53.83 Alkaline p hosphatase above reference range 071283588 R74.8 Essential hypertension 24518609 I10 Chronic constipation 236 424629 K59.09 [id number] Quinn Mercado MD Main Office [address] [address] 12/14/2024 10:54:34 12/14/2024 12:02:33 Myositis 07581190 M60.9 With symptoms and abnl labs inflammato ry arthropath y/myopathy need to be ruled out. WIll ask rheum for guidance. Rheumatoid factor detected 630931578 R76.0 With symptoms and abnl labs inflammato ry arthropath y/myopathy need to be ruled out. WIll ask rheum for guidance. Essential hypertension 57797810 I10 Not well controlled but likely influenced by pain. Continue amlodipine and monitoring for now. [id number] Quinn Mercado MD Main Office [address] [facility] [address] [place] [address] 04/29/2025 10:59:20 04/29/2025 12:14:42 Generalized anxiety disorder 90848681 F41.1 Symptoms improved and currently tolerable. Will monitor. Essential hypertension 46861578 I10 Not well controlled but likely influenced by anxiety. Continue amlodipine and monitoring for now. Has cardiology appt in Jun. Recurrent major depression in partial remission 09349618 F33.41 Well controlled in context of acute on chcf stressors. Psychother apy again encouraged . Prediabetes 991479654 R7 3.03 Overdue for reassessme nt. Will monitor. Pure hypercholesterolemia 292221922 E78.01 Asked to take rosuvastat in daily. Will monitor. Hiatal her idalia with gastroesophageal reflux 505904985 K21.9 Well controlled without warning signs. Continue current regimen. Rx refilled. Cyst of pancreas 7885768 0 K86.2 States that MRI was recently done [address] scan recently done by oncology at [facility], will request reports, to see if pancreas was imaged. Fatigue 74203833 R53.82 [id number] Recent TSH/CBC were normal. Symptoms stable. Will request recent oncology notes and CT scan result. [id number] BALA TERRELL MD Main Office [address] [facility] [address] [place] [address] 07/05/2025 13:27:14 07/05/2025 14:13:25 Cervical radiculopathy 40106484 M54.12 [id number] - Patient is presenting with 3 days of acute neck pain with radiating pain to her left shoulder and arm, and weakness in her left hand. On exam, reduced ROM of cervical spine with pain elicited during exam. Reduced prepleater strength appreciate d on left side as compared to right side. Pain occurs in the context of history of arthritis and 2 recent falls in the past 2 months, both with impact to the jaw and head. Patient also reports 3 neck and spine adjustment s performed around the time of these falls.- History and exam findings are concerning for nerve compressio n. Need to rule out cord compressio n, myelopathy . Lower concern for cervical spine fracture given delay in start of symptoms from initial reported trauma.- Ordering X-ray to rule out acute fracture and evaluate for foraminal and canal narrowing. Ordering MRI of the cervical spine given patient has neuro deficits in history and on exam, with concern for nerve compressio n and need to r/o cord compressio n, myelopathy .- Referring to orthopedic s for further evaluation given cervical spine pain with radiculopa thy, weakness, neuro deficits- Starting patient on gabapentin for pain that may be more neuropathi c in nature. Advised patient to start 100mg at night, and increase dose and frequency as tolerated. Advised that medication can be sedating; do not take before operating heavy machinery. Do not take with other medication s that can be sedating.- May use ibuprofen in small amounts if tolerating well; advised against chronic use. May use acetaminop hen. Apply heat and ice if noting benefit.-R TC in 1 week for follow up evaluation of pain. Advised patient on signs and symptoms that should prompt immediate medical care in the meantime. [id number] Fede Bishop MD Main Office [address] [facility] [address] [place] [address] 07/12/2025 10:25:28 07/12/2025 11:11:42 Cervical radiculopathy 70284394 M54.12 [id number] 07/12/25-MR I was performed on 07/10/25. MRI results significan t for severe bilateral neural foraminal narrowing at C3-C4, C5-C6, severe left foraminal narrowing at C4-C5, and moderate-t o-severe right neural foraminal narrowing at C6-C7. There is also mild canal stenosis without noted cord compressio n at levels C4 through T2. Results described as interprete d by radiologis t.- Cervical spine XRay on 07/05 showed degenerati ve changes but no acute fracture or dislocatio n- Patient reports she did not tolerate gabapentin well and has trouble tolerating several other medication s, including NSAIDs, opioids, muscle relaxants. This leaves very limited options for appropriat e pain management . She may use Tylenol for pain as well as topical pain relief such as capsaicin creams, heat, ice. She has not previously tried topical diclofenac but is reporting prior history of not tolerating oral diclofenac . Referral to pain management is indicated. Patient states she has previously tolerated corticoste roid injections in other areas.- May safely engage in gentle strengthen ing and stretching exercises. - Has referral to orthopedic surgeon but has not received a call to schedule an appointmen t. She is interested in pursuing pain management and physical therapy referral today given severity of symptoms.- Discussed plan for follow up with patient. RTC if experienci ng worsening severe pain and/or signs of myelopathy /LENORA. Reviewed signs and symptoms that should prompt seeking emergency medical care. Patient demonstrat es understand ing of plan of care. Health Concerns Section Related Observation LastModified by Organization Detai ls LastModified Time None Recorded Concern Status LastModified by Organization Details LastModified Time None Recorded Advance Directives Directive Y: HCP/ -Yovany, Friend -Patti Payers Insurance Date Sequence Insurance Name Policy Number Policy Jurado Covered Member ID Jurado Member ID Guarantor Name 07/12/2025 1 [id number] Sindi Gardner [id number] Sindi Gardner 01/30/2024 1 [place] Sindi Gardner [id number] Sindi Gardner 08/06/2025 [address] [facility] [facility] [address] (INDEMNITY) [id number] Sindi Gardner [id number] Sindi Gardner Notes Date Note Type Note Provider Name and Address Organization Details Recorded Time 5 text/html FatigueReported by PatientHPIFor severity, patient reportschange in exercise habits,changes in normal activities, andworseningbut reportsnormal sleep patterns(7 hr.). For timing, patient reportsworse. For associated symptoms, patient reportsdrug/alcohol withdrawal,anxiety, andrecent change in weightbut reportsno depression. For context, patient reportssymptoms improve on weekends/vacationandno problems/stress at work or home. For modifying factors, patient reportsno new stressors in lifeandtaking vitamins. For duration, (weeks.). DysuriaReported by PatientHPIFor quality, patient reportsburning. For severity, patient reportsworsening. For timing, patient reportsworse. For context, patient reportssexually activebut reportsno prior history of stdsandno known exposure to std. For duration, patient reportsintermittent(1 week.). For associated symptoms, patient reportsno fever,no blisters on genitals,no rash on genitals,no hesitancy,no blood in the urine,normal urine stream, andno flank pain. The patient was scheduled for evaluation of a possible urinary tract infection (UTI) but presented with multiple concerns, many of which are being managed by various specialists and her primary care physician (PCP). She was initially worried that her fatigue might be due to a UTI; however, her urinalysis was normal on dipstick. I reassured her that we will send the sample for further testing to confirm the results. She reports being under the care of an plaster patternmaker and tier lift operator for various allergies and mentions abnormal protein electrophoresis results, which are planned for repeat testing by her tier lift operator. Additionally, she follows with gastroenterology for chronic constipation. Her fatigue appears to be longstanding and has been previously discussed with her PCP. I acknowledged the complexity of managing multiple chronic conditions and advised that, while I will do my best to address her concerns, she should follow up with her PCP for a more comprehensive evaluation. Given that today s visit was specifically scheduled for an urgent evaluation of urinary symptoms w hich currently seem to be the least of her concerns f urther follow-up with her PCP is recommended to address her ongoing health issues. Arlene Vann MD [address] [place] [address], [phone], [facility] 11/28/2024 17:56:16 5 text/html Musculoskeletal PainReported by PatientHPIFor quality, patient reportsaching. For location, patient reportsbilateral shoulder,bilateral hand,bilateral hip, andbilateral knee. For duration, patient reportspresent for 1-6 months. For associated symptoms, patient reportsno fever.Seen by rheum in the past (Terrie/Maria Eugenia) but no regular follow up. Recent labs showed neg BETHANIE but ESR>50, CK and rheumatoid factor mildly elevated. Has declined statin therapy for years. FatigueReported by PatientHPIFor severity, patient reportschange in exercise habits,changes in normal activities, andworseningbut reportsnormal sleep patterns(7 hr.). For associated symptoms, patient reportsdrug/alcohol withdrawal,anxiety, andrecent change in weightbut reportsno depression. For timing, patient reportsbetter. For context, patient reportssymptoms improve on weekends/vacationandno problems/stress at work or home. For modifying factors, patient reportsno new stressors in lifeandtaking vitamins. For duration, (weeks.). Hypertension F/UReported by PatientHPIFor associated symptoms, patient reportsno dizziness,no lightheadedness, andno chest pain. For medications, patient reportstaking medications as directedandno side effects from medication. Radha mondragon, [facility] 12/28/2024 14:00:17 5 text/html Musculoskeletal PainReported by PatientHPIFor quality, patient reportsaching. For location, patient reportsbilateral shoulder,bilateral hand,bilateral hip, andbilateral knee. For duration, patient reportspresent for 1-6 months. For associated symptoms, patient reportsno fever.Seen by rheum in the past (Terrie/Maria Eugenia) but no regular follow up. Recent labs showed neg BETHANIE but ESR>50, CK and rheumatoid factor mildly elevated. Has declined statin therapy for years. Seen by rheum and felt to have OA FatigueReported by PatientHPIFor severity, patient reportschange in exercise habits,changes in normal activities, andworseningbut reportsnormal sleep patterns(7 hr.). For associated symptoms, patient reportsanxietyandrecent change in weightbut reportsno depressionandno sleep disturbances. For timing, patient reportsbetter. For context, patient reportssymptoms improve on weekends/vacationandno problems/stress at work or home. For modifying factors, patient reportsno new stressors in lifeandtaking vitamins. For duration, (weeks.). Hypertension F/UReported by PatientHPIFor associated symptoms, patient reportsno dizziness,no lightheadedness, andno chest pain. For medications, patient reportstaking medications as directedandno side effects from medication. HyperlipidemiaReported by PatientHPIFor type of hyperlipidemia, patient reportshypercholesterolemia . For duration, patient reportschronic. For control, patient reportsnot at goalbut reportsusually well controlled. For current therapy, patient reportscurrently taking: (rosuvastatin),last cholesterol level: (188),last ldl level: (106),last triglyceride level: (93), andlast hdl level: (65). For compliance, patient reportscompliant,compliant with diet, andexercises. For complications, patient reportsno coronary artery disease,no peripheral artery disease, andno cardiovascular disease.Uses rosuvastatin a few days/week. Quinn Mercado MD [address], [id number], [facility] 04/29/2025 12:10:06 5 text/html Musculoskeletal PainReported by PatientHPIFor quality, patient reportsaching. For severity, patient reportsworsening. For associated symptoms, patient reportsweak limbs (left arm)andnumbness of the legs/feet (has improved since end may)but reportsno feverandno tingling(no incontinence, saddle anesthesia, loss of balance, ataxia). For location, patient reportsleft neck(radiating from low neck to left shoulder blade, down to left arm.). For timing, patient reportsconstant. For context, patient reportstrauma (fall in early may, fell on right side. subsequent fall near the end of may with impact to jaw and head.)andprior back problems(saw chiropractor in late may, had 3 adjustments. had an adjustment 1 day after a fall with head impact. was experiencing thigh and arm numbness at that time. felt like that adjustment was very hard and did not feel right about it.has history of arthritis but states that this pain and associated weakness are new, not previously experienced.). For alleviating factors, patient reportsrest. For aggravating factors, patient reportsmovement/positioning . For duration, (neck pain, stiffness, and left arm pain and weakness all began within the past 3 days.). For medications, (took ibuprofen 200mg yesterday with some improvement).ROS as noted in the HPI Sindi is a 75 year old F with PMH of RODRICK, depression, HTN, hypercholesteremia, prediabetes, hypothyroidism, osteopenia, obesity, PARDO, constipation, hiatal hernia, breast cancer, osteoarthritis, LBP, fibromyalgia, asthma, and hysterectomy. She is presenting today for evaluation of neck pain. Quinn Mercado MD [address] [address], [place], [phone], [facility] 07/08/2025 06:30:37 5 text/html Musculoskeletal PainReported by PatientHPIFor quality, patient reportsaching. For severity, patient reportsworsening. For associated symptoms, patient reportsweak limbs (left arm)andnumbness of the legs/feet (has improved since end may)but reportsno feverandno tingling(no incontinence, saddle anesthesia, loss of balance, ataxia). For location, patient reportsleft neck,left shoulder, andleft arm(radiating from low neck to left shoulder blade, down to left arm.left arm weakness with reduced prepleater strength.). For duration, patient reportspresent <1 month. For timing, patient reportsconstant. For context, patient reportstrauma (fall in early may, fell on right side. subsequent fall near the end of may with impact to jaw and head.)andprior back problems(saw chiropractor in late may, had 3 adjustments. had an adjustment 1 day after a fall with head impact. was experiencing thigh and arm numbness at that time. felt like that adjustment was very hard and did not feel right about it.has history of arthritis but states that this pain and associated weakness are new, not previously experienced.). For alleviating factors, patient reportsrest. For aggravating factors, patient reportsmovement/positioning . For medications, (took ibuprofen 200mg yesterday with some improvement).ROS as noted in the HPI Sindi is a 75 year old F with PMH of RODRICK, depression, HTN, hypercholesteremia, prediabetes, hypothyroidism, osteopenia, obesity, PARDO, constipation, hiatal hernia, breast cancer, osteoarthritis, LBP, fibromyalgia, asthma, and hysterectomy. She is presenting today for evaluation of neck pain. Second Encounter 07/12-Patient was seen in the ER on 07/08 for same symptoms as reported in her initial encounter on 07/05. No further imaging or testing was performed in the ER.- Patient is reporting no improvement in symptoms today. She tried taking the gabapentin but noticed that it affected her balance, began having nausea, and having changes in vision. Symptoms resolved with stopping medication. She reports trouble tolerating several other medications, including NSAIDs, opioids, muscle relaxants. She has not previously tried topical diclofenac but is reporting prior history of not tolerating oral diclofenac. Quinn Mercado MD [address] [facility] [address], [place], [address], [facility] 07/12/2025 12:37:22 OBGyn Episode No OBEpisode recorded.
--- OUTSIDE RECORDS SUMMARY | 2025-08-28 09:13 | XMS_ITS | Encounter Summary ---
Author Organization [facility] Address [address] [place] [address] Phone Care Team Providers Care Pretzel Twisting Machine Operator Name Role Phone Quinn Mercado MD Primary Care Provider Dimas Chester MD Unavailable Unavailable Alphonse Craig MD Unavailable [phone] Nereyda Figueredo PA-C Unavailable maryann Encounter Details Date Type Department Care Team (Late st Contact Info) Description 04/08/[address] [address] Social History Tobacco Use Types Packs/Day Years [...] (Late st Contact Info) Description 08/22/[address] [address] 10/01/2025 11:45 AM EST Office Visit [facility] General Surgical Care [address] [place] [address] Mattie Mesa MD 15 [facility], 2nd [place] [address] 05/09/2026 11:45 AM EDT Appointment [facility], [facility]- [address] [address] Quinn Mercado MD [address] [place] [address] documented as of this encounter Visit Diagnoses Not on filedocumented in this encounter Care Teams Pretzel Twisting Machine Operator Relationship Specialty Start Date End Date Quinn Mercado MD [address] [place] [address] PCP - General 04/16/14 Dimas Chester MD Consulting Provider Allergy and Immunology 11/10/20 Alphonse Craig MD [address] [place] [address] Primary Oncologist Medical Oncology 03/26/21 Nereyda Figueredo PA-C [address] [place] [address] Physician Ordnance Officer Medical Oncology 03/17/23 04/01/25 documented as of this encounter Additional Source Comments The information contained in this document represents components of the legal health record. It is not the complete legal health record.[facility]
--- OUTSIDE RECORDS SUMMARY | 2025-08-28 09:13 | XMS_ITS | Encounter Summary ---
Author Organization [facility] Address [address] [place] [address] Phone Care Team Providers Care Case Manager Specialist Name Role Phone Quinn Mercado MD Primary Care Provider Dimas Chester MD Unavailable Unavailable Alphonse Craig MD Unavailable [phone] Nereyda Figueredo PA-C Unavailable maryann Encounter Details Date Type Department Care Team (Late st Contact Info) Description 12/17/[address] [address] Social History Tobacco Use Types Packs/Day Years [...] (Late st Contact Info) Description 08/22/[address] [address] 10/01/2025 11:45 AM EST Office Visit [facility] General Surgical Care [address] [place] [address] Mattie Mesa MD 15 [facility], 2nd [place] [address] 05/09/2026 11:45 AM EDT Appointment [facility], [facility]- [address] [address] Quinn Mercado MD [address] [place] [address] documented as of this encounter Visit Diagnoses Not on filedocumented in this encounter Care Teams Case Manager Specialist Relationship Specialty Start Date End Date Quinn Mercado MD [address] [place] [address] PCP - General 04/16/14 Dimas Chester MD Consulting Provider Allergy and Immunology 11/10/20 Alphonse Craig MD [address] [place] [address] Primary Oncologist Medical Oncology 03/26/21 Nereyda Figueredo PA-C [address] [place] [address] Physician Director Of Strategic Sales Medical Oncology 03/17/23 04/01/25 documented as of this encounter Additional Source Comments The information contained in this document represents components of the legal health record. It is not the complete legal health record.[facility]
--- OUTSIDE RECORDS SUMMARY | 2025-08-28 09:13 | XMS_ITS | Encounter Summary ---
Author Organization [facility] Address [address] [place] [address] Phone Care Team Providers Care Tombstone Polisher Name Role Phone Quinn Mercado MD Primary Care Provider Dimas Chester MD Unavailable Unavailable Alphonse Craig MD Unavailable [phone] Nereyda Figueredo PA-C Unavailable maryann Encounter Details Date Type Department Care Team (Late st Contact Info) Description 04/08/2021 Procedure Pass [address] [place] [address] Social History Tobacco Use Types Packs/Day Years Used Date Smoking Tobacco: Never Smokeless Tobacco: Never Comments No Sex and Gender Information Value Date Recorded Sex Assigned at Female 04/06/2021 2:21 PM EDT Legal Sex Female 5:31 PM EST Gender Identity Female 04/06/2021 2:21 PM EDT Sexual Orientation Not on file documented as of this encounter Last Filed Vital Signs Vital Sign Reading Time Taken Comments Blood Pressure - - Pulse - - Temperature - - Respiratory Rate - - Oxygen Saturation - - Inhaled Oxygen Concentration - - Weight 68 kg (150 lb) 04/08/2021 4:18 PM EDT Height 152.4 cm (5') 04/08/2021 4:18 PM EDT Body Mass Index 29.29 04/08/2021 4:18 PM EDT documented in this encounter Plan of Treatment Upcoming Encounters Date Type Department Care Team (Late st Contact Info) Description 08/22/2025 Procedure Pass [address] [address] 10/01/2025 11:45 AM EST Office Visit [facility] General Surgical Care 15 [place] [address] Mattie Mesa MD 15 [facility], 2nd [place] [address] 05/09/2026 11:45 AM EDT Appointment [address] [address] Quinn Mercado MD [address] [place] [address] documented as of this encounter Visit Diagnoses Not on filedocumented in this encounter Care Teams Tombstone Polisher Relationship Specialty Start Date End Date Quinn Mercado MD [address] [place] [address] PCP - General 04/16/14 Dimas Cehster MD Consulting Provider Allergy and Immunology 11/10/20 Alphonse Craig MD [address] [place] [address] Primary Oncologist Medical Oncology 03/26/21 Nereyda Figueredo PA-C [address] [place] [address] Physician Dietitian Teaching Medical Oncology 03/17/23 04/01/25 documented as of this encounter Additional Source Comments The information contained in this document represents components of the legal health record. It is not the complete legal health record.[facility]
--- OUTSIDE RECORDS SUMMARY | 2025-08-28 09:13 | XMS_ITS | Encounter Summary ---
Author Organization [facility] Address [address] [facility] [address] [place] [address] Phone Care Team Providers Care Feeder Catcher Tobacco Name Role Phone Quinn Mercado MD Primary Care Provider Dimas Chester MD Unavailable Unavailable Alphonse Craig MD Unavailable [phone] Nereyda Figueredo PA-C Unavailable maryann Encounter Details Date Type Department Care Team (Latest Contact Info) Description 12/17/2022 Transcribe Orders Virtual Department [address] [place] [address] Alphonse Craig MD [address] [place] [address] [email or web address] Breast screening (Primary Dx) Social History Tobacco [...] st Contact Info) Description 08/22/2025 Procedure Pass [address] [address] 10/01/2025 11:45 AM EST Office Visit [facility] General Surgical Care 15 [place] [address] Mattie Mesa MD 15 [facility], 2nd [place] [address] [email or web address] 05/09/2026 11:45 AM EDT Appointment [address] [address] Quinn Mercado MD [address] [place] [address] documented as of this encounter Results * BI MAMMOGRAM SCREENING WITH TOMOSYNTHESIS WITH CAD (BILATERAL) (03/17/2023 11:04 AM EDT) Anatomical Region Laterality Modality Breast Left, Breast Right, Breast Bilateral Bila teral Mammography 03/17/2023 1:15 PM EDT Impressions 03/17/2023 1:18 PM EDT No findings suspicious for locally recurrent or new sites of malignancy. In the absence of a worrisome palpable abnormality, annual screening mammography is recommended. BI-RADS CATEGORY: 2 - Benign finding. DENSITY: There are scattered fibroglandular densities. Narrative 03/17/2023 1:18 PM EDT AVAILABLE COMPARISON: 03/25/2022 through 06/26/2007. Bilateral 3-D tomosynthesis with 2-D reconstructions in the CC and MLO projection. Computer-aided detection system also utilized. No new mass, asymmetry, architectural distortion or suspicious calcifications have become apparent in either breast. Chronic distortion on the left from previous lumpectomy unchanged. Procedure Note Cameron Wills MD - 03/17/2023 AVAILABLE COMPARISON: 03/25/2022 through 06/26/2007. Bilateral 3-D tomosynthesis with 2-D reconstructions in the CC and MLOprojection. Computer-aided detection system also utilized. No new mass, asymmetry, architectural distortion or suspiciouscalcifications have become apparent in either breast. Chronic distortion on the left from previous lumpectomy unchanged. IMPRESSION: No findings suspicious for locally recurrent or new sites of malignancy.In the absence of a worrisome palpable abnormality, annual screeningmammography is recommended. BI-RADS CATEGORY: 2 - Benign finding. DENSITY: There are scattered fibroglandular densities. Alphonse Craig MD IMG MG EXAMS Final Result documented in this encounter Visit Diagnoses Diagnosis Breast screening- Primary Breast screening, unspecified Breast screening Breast screening, unspecified documented in this encounter Care Teams Feeder Catcher Tobacco Relationship Specialty Start Date End Date Quinn Mercado MD [address] [place] [address] PCP - General 04/16/14 Dimas Chester MD Consulting Provider Allergy and Immunology 11/10/20 Alphonse Craig MD [address] [place] [address] Primary Oncologist Medical Oncology 03/26/21 Nereyda Figueredo PA-C [address] [place] [address] Physician Operations Mgr Medical Oncology 03/17/23 04/01/25 documented as of this encounter Additional Source Comments The information contained in this document represents components of the legal health record. It is not the complete legal health record.[facility]
--- OUTSIDE RECORDS SUMMARY | 2025-08-28 09:13 | XMS_ITS | Encounter Summary ---
Author Organization [facility] Address [address] [place] [address] Phone Care Team Providers Care Brazer Production Line Name Role Phone Quinn Mercado MD Primary Care Provider Dimas Chester MD Unavailable Unavailable Alphonse Craig MD Unavailable [phone] Nereyda Figueredo PA-C Unavailable maryann Encounter Details Date Type Department Care Team (Late st Contact Info) Description 02/12/[address] [address] Social History Tobacco Use Types Packs/Day Years [...] (Late st Contact Info) Description 08/22/[address] [address] 10/01/2025 11:45 AM EST Office Visit [facility] General Surgical Care [address] [place] [address] Mattie Mesa MD 15 [facility], 2nd [place] [address] 05/09/2026 11:45 AM EDT Appointment [facility], [facility]- [address] [address] Quinn Mercado MD [address] [place] [address] documented as of this encounter Visit Diagnoses Not on filedocumented in this encounter Care Teams Brazer Production Line Relationship Specialty Start Date End Date Quinn Mercado MD [address] [place] [address] PCP - General 04/16/14 Dimas Chester MD Consulting Provider Allergy and Immunology 11/10/20 Alphonse Craig MD [address] [place] [address] Primary Oncologist Medical Oncology 03/26/21 Nereyda Figueredo PA-C [address] [place] [address] Physician Manager Digital Medical Oncology 03/17/23 04/01/25 documented as of this encounter Additional Source Comments The information contained in this document represents components of the legal health record. It is not the complete legal health record.[facility]
--- OUTSIDE RECORDS SUMMARY | 2025-08-28 09:14 | XMS_ITS | Encounter Summary ---
Author Organization [facility] Address [address] [place] [address] Phone Care Team Providers Care Scrap Metal Processing Worker Name Role Phone Quinn Mercado MD Primary Care Provider Dimas Chester MD Unavailable Unavailable Alphonse Craig MD Unavailable [phone] Nereyda Figueredo PA-C Unavailable maryann Encounter Details Date Type Department Care Team (Late st Contact Info) Description 01/01/[address] [address] Social History Tobacco Use Types Packs/Day Years [...] (Late st Contact Info) Description 08/22/[address] [address] 10/01/2025 11:45 AM EST Office Visit [facility] General Surgical Care [address] [place] [address] Mattie Mesa MD 15 [facility], 2nd [place] [address] 05/09/2026 11:45 AM EDT Appointment [facility]- [address] [address] Quinn Mercado MD [address] [place] [address] documented as of this encounter Visit Diagnoses Not on filedocumented in this encounter Care Teams Scrap Metal Processing Worker Relationship Specialty Start Date End Date Quinn Mercado MD [address] [place] [address] PCP - General 04/16/14 Dimas Chester MD Consulting Provider Allergy and Immunology 11/10/20 Alphonse Craig MD [address] [place] [address] Primary Oncologist Medical Oncology 03/26/21 Nereyda Figueredo PA-C [address] [place] [address] Physician Powder Coat Painter Medical Oncology 03/17/23 04/01/25 documented as of this encounter Additional Source Comments The information contained in this document represents components of the legal health record. It is not the complete legal health record.[facility]
--- OUTSIDE RECORDS SUMMARY | 2025-08-28 09:14 | XMS_ITS | Encounter Summary ---
Author Organization [facility] Address [address] [place] [address] Phone Care Team Providers Care Municipal Firefighter Name Role Phone Quinn Mercado MD Primary Care Provider Dimas Chester MD Unavailable Unavailable Alphonse Craig MD Unavailable [phone] Nereyda Figueredo PA-C Unavailable maryann Encounter Details Date Type Department Care Team (Late st Contact Info) Description 06/09/2024 Procedure Pass [facility], [address] [address] Social History Tobacco Use Types Packs/Day Years [...] st Contact Info) Description 08/22/2025 Procedure Pass [address] [address] 10/01/2025 11:45 AM EST Office Visit [facility] General Surgical Care 15 [place] [address] Mattie Mesa MD 15 [facility], 2nd [place] [address] 05/09/2026 11:45 AM EDT Appointment [address] [address] Quinn Mercado MD [address] [place] [address] documented as of this encounter Visit Diagnoses Not on filedocumented in this encounter Care Teams Municipal Firefighter Relationship Specialty Start Date End Date Quinn Mercado MD [address] [place] [address] PCP - General 04/16/14 Dimas Chester MD Consulting Provider Allergy and Immunology 11/10/20 Alphonse Craig MD [address] [place] [address] Primary Oncologist Medical Oncology 03/26/21 Nereyda Figueredo PA-C [address] [place] [address] Physician Vp Construction Medical Oncology 03/17/23 04/01/25 documented as of this encounter Additional Source Comments The information contained in this document represents components of the legal health record. It is not the complete legal health record.[facility]
--- OUTSIDE RECORDS SUMMARY | 2025-08-28 09:14 | XMS_ITS | Clinical Summary ---
Author Organization [facility] Address [address] [place] [address] Phone Care Team Providers Care Medical Liaison Name Role Phone Quinn Mercado MD Primary Care Provider Dimas Chester MD Unavailable Unavailable Alphonse Craig MD Unavailable [phone] Allergies Active Allergy Reactions Criticality Noted Date Comments Lubiprostone High 10/12/2018 Chest pressure, coughing, trouble breathing Atorvastatin Musculoskeletal Pain 03/30/2021 Diclofenac Sodium 10/24/2020 Remotely recalls only having a strange feeling Flonase (Fluticasone) Hives 03/08/2016 Fluticasone 03/22/2023 Ibuprofen Swelling 10/24/2020 Suspicion that ibuprofen may be contributing to recurrent angioedema Letrozole Musculoskeletal Pain Medium 03/30/2021 Linaclotide Diarrhea 08/09/2024 Lisinopril Swelling 03/08/2016 Significant orofacial angioedema [id number]. Went to ER, but did not require hospitalization. Resolved in 1-2 days. Losartan Cough High 10/12/2018 Chest pressure, trouble breathing. Progressive worsening throughout the weeks Lovastatin Musculoskeletal Pain 03/30/2021 Nirmatrelvir-Ritonavi r Swelling 12/21/2023 Pravastatin Sodium Musculoskeletal Pain 021 Sulfa (Sulfonamide Antibiotics) 03/08/2016 Plecanatide High 10/12/2018 Trouble breathing and cough and chest pressure Zyrtec (Cetirizine) GI Upset 03/08/2016 Medications fexofenadine (SINA) 180 MG tablet Take 90 mg by mouth daily. Active levothyroxine (SYNTHROID, LEVOTHROID) 112 MCG tablet 1 tablet every morning on an empty stomach Orally 6x a week Active albuterol 90 mcg/actuation inhaler Inhale 2 puffs into the lungs every 4 (four) hours as needed. Active cholecalciferol (VITAMIN D3) 2,000 unit capsule 1 capsule Orally Once a day Active omeprazole (PRILOSEC) 20 MG capsule 1 capsule Orally Once a day Active magnesium oxide 250 mg (150 mg elemental) Tab Take 400 mg by mouth daily. Active rosuvastatin (CRESTOR) 5 MG tablet Take 5 mg by mouth daily. 3 days per week Active EPINEPHrine 0.3 mg/0.3 mL auto-injector Take 1 auto as needed by injection route for 2 days. Active glucosamine-cho ndroit-vit C-Mn 500-400 mg Take by mouth. Acti ve multivit with minerals/lutein (MULTIVITAMIN 50 PLUS ORAL) multivitamin take once daily Active COVID-19 antigen test (QUICKVUE AT-HOME COVID-19 TEST) Kit Active glucos sul 1XSr-cko-jvwku- C-Mn (GLUCOSAMINE CHONDROITIN) 550-30-1 mg Cap daily. Acti ve amLODIPine (NORVASC) 5 MG tabletIndicatio ns:hypertension Take 5 mg by mouth daily. Indications: high blood pressure Active doxycycline hyclate (VIBRAMYCIN) 100 MG capsule Take 100 mg by mouth 2 (two) times a day. 4 Active WIXELA INHUB 250-50 mcg/dose DISKUS Inhale 250 mcg/actuation of fluticasone into the lungs 2 (two) times a day. 4 Active budesonide-glyc opyr-formoterol (BREZTRI AEROSPHERE) 160-9-4.8 mcg/actuation inhaler Inhale 1 puff as needed by inhalation route for 30 days. Active Active Problems Patient Care Coordination No te Formatting of this note migh t be different from the original. Height 151. 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 Arthritis 04/13/2018 Malignant neoplasm of upper- outer quadrant of left breast in female, estrogen receptor positive 10/06/2017 History of lumpectomy of left breast 10/06/2017 Hypercholesteremia 10/06/2017 Acute midline low back pain 10/06/2017 Family history of hemochromatosis 10/06/2017 Knee pain 01/12/2012 Overview (12/07/2014): Knee pain Encounters Date Type Department Care Team Description 08/22/2025 Transcribe Orders [facility] Department [address] [place] [address] Quinn Mercado MD Breast screening (Primary Dx) from Last 3 Months Immunizations Immunization Administration Dates Next Due COVID-19 (Pre-08/08) Pfizer Vaccine, mRNA, PF 01/22/2021,01/01/2021 DT 10/20/2005 INFLUENZA, SPLIT VIRUS, TRIV ALENT W/ PRESERVATIVE IM 07/03/2012 Influenza High-Dose Quadriva lent Preservative Free IM 06/28/2023,08/15/2022,09/14/2021,09/08 Influenza High-Dose Trivalen t Preservative Free IM 10/29/2024,08/30/2019,08/24/2018,08/19,06/17/2016 Influenza Quadrivalent Prese rvative Free IM 07/23/2015 Influenza trivalent preserva tive free intradermal 06/21/2013 Influenza, whole 09/01/2006 Pneumococcal conjugate PCV13 07/17/2014 Pneumococcal polysaccharide PPSV23 07/23/2015 Td (adult),2 Lf Tetanus Toxo id, PF, Adsorbed 08/30/2019 Tdap 07/10/2009 Family History Medical History Relation Comments Breast cancer Maternal Aunt Cancer Mother Glioblastoma Mul tiforme Relation Status Comments Maternal Aunt Mother Social History Tobacco Use Types Packs/Day Years Used Date Smoking Tobacco: Never Smokeless Tobacco: Never Tobacco Cessation:Counseling Given: Not Answered Alcohol Use Standard Drinks/Week Comments Yes 1 [...] PM EDT Sexual Orientation Not on file Last Filed Vital Signs Vital Sign Reading Time Taken Comments Blood Pressure 155/88 04/02/2025 9:08 AM EDT Pulse 94 04/02/2025 9:08 AM EDT Temperature 36.3 C (97.3 F) 04/02/2025 9:08 AM EDT Respiratory Rate 20 12/21/2023 10:28 AM EST Oxygen Saturation 98% 04/02/2025 9:08 AM EDT Inhaled Oxygen Concentration - - Weight 67.6 kg (149 lb) 04/02/2025 9:08 AM EDT Height 151 cm (4' 11.45 ) 04/02/2025 9:08 AM EDT Body Mass Index 29.64 04/02/2025 9:08 AM EDT Plan of Treatment Upcoming Encounters Date Type Department Care Team (Late st Contact Info) Description 08/22/2025 Procedure Pass [address] [address] 10/01/2025 11:45 AM EST Office Visit [facility] General Surgical Care [address] [place] [address] Mattie Mesa MD [address] [facility], 2nd [place] [address] 05/09/2026 11:45 AM EDT Appointment [address] [place] [address] Quinn Mercado MD [address] [place] [address] Health Maintenance Due Date Last Done Comments LIPID PANEL 1949 TSH LEVEL 1949 DEPRESSION SCREENING 1961 HEPATITIS C SCREENING 1967 ZOSTER VACCINES (1 of 2) 1968 OSTEOPOROSIS SCREENING INITIAL (ONE-TIME) 2014 RSV VACCINE (1 - 1-dose 75+ series) 2024 INFLUENZA VACCINE (#1) 2025 , 06/28/2023, 08/15/2022, Additional history exists COVID-19 VACCINE ( - 2024- season) 2025 10/23/2022, 09/11/2021, 01/22/2021, Additional history exists Adult Td,Tdap Booster 08/30/2029 08/30/2019, 009 PNEUMOCOCCAL VACCINES (50+ years) Completed 07/23/2015, 07/17/2014 SMOKING STATUS SCREENING (Once After 26 Yrs) Completed 04/23/2025 HEPATITIS A VACCINES Aged Out No long er eligible based on patient's age to complete this topic HIB VACCINES Aged Out No longer eligi ble based on patient's age to complete this topic IPV VACCINES Aged Out No longer eligi ble based on patient's age to complete this topic MENINGOCOCCAL VACCINES (ACWY) Aged Out No longer eligible based on patient's age to complete this topic MENINGOCOCCAL VACCINES (B) Aged Out N o longer eligible based on patient's age to complete this topic Medical Devices Not on file Insurance MEDICARE PART A & B [facility] [place] [id number] WILLIE M[facility] [facility] [place] [id number] MEDICARE PART A & B [facility] [place] [id number] MEDICARE PART A & B [employer] MED[employer] SUPPLEMENT MEDICARE PART A & B [employer] MEDICARE SUPPLEMENT MEDICARE PART A & B [facility] MEDICARE SUPPLEMENT MEDICARE PART A & B [facility] MEDICARE SUPPLEMENT MEDICARE PART A & B [facility] MEDICARE SUPPLEMENT MEDICARE PART A & B [employer] MEDICARE SUPPLEMENT MEDICARE PART A & B [employer] MEDICARE SUPPLEMENT Care Teams Medical Liaison Relationship Specialty Start Date End Date Quinn Mercado MD [address] [place] [id number] PCP - General 04/16/14 Dimas Chester MD Consulting Provider Allergy and Immunology 11/10/20 Alphonse Craig MD [address] [place] [phone] [email or web address] Primary Oncologist Medical Oncology 03/26/21 Additional Source Comments The information contained in this document represents components of the legal health record. It is not the complete legal health record.[facility]
--- OUTSIDE RECORDS SUMMARY | 2025-08-28 09:14 | XMS_ITS | Encounter Summary ---
Author Organization [facility] Address [address] [facility] [place] [address] Phone Care Team Providers Care Architectural Design Professor Name Role Phone Quinn Mercado MD Primary Care Provider Dimas Chester MD Unavailable Unavailable Alphonse Craig MD Unavailable [phone] Nereyda Figueredo PA-C Unavailable [email or web address] Encounter Details Date Type Department Care Team (Late st Contact Info) Description 04/24/[address] [address] Social History Tobacco Use Types Packs/Day Years [...] (Late st Contact Info) Description 08/22/[address] [address] 10/01/2025 11:45 AM EST Office Visit [facility] General Surgical Care [address] [place] [address] Mattie Mesa MD [address] [facility], 2nd [place] [address] [email or web address] 05/09/2026 11:45 AM EDT Appointment [facility], [address] [address] Quinn Mercado MD [address] [place] [phone] documented as of this encounter Visit Diagnoses Not on filedocumented in this encounter Care Teams Architectural Design Professor Relationship Specialty Start Date End Date Quinn Mercado MD [address] [place] [phone] PCP - General 04/16/14 Dimas Chester MD Consulting Provider Allergy and Immunology 11/10/20 Alphonse Craig MD [address] [place] [phone] Primary Oncologist Medical Oncology 03/26/21 Nereyda Figueredo PA-C [address] [place] [phone] [email or web address] Physician Pulley Mortiser Operator Medical Oncology 03/17/23 04/01/25 documented as of this encounter Additional Source Comments The information contained in this document represents components of the legal health record. It is not the complete legal health record.[facility]
--- OUTSIDE RECORDS SUMMARY | 2025-08-28 09:14 | XMS_ITS | Clinical Summary ---
Author Organization [facility] [address] [facility] [place] Address [address] [place] [address] Phone Care Team Providers Care Embedded Systems Software Engineer Name Role Phone Quinn Mercado MD Primary Care Provider [phone] Social History Tobacco Use Types Packs/Day Years Used Date Smoking Tobacco: Never Smokeless Tobacco: Never Comments Unknown Sex and Gender Information Value Date Recorded Sex Assigned at Not on file Legal Sex Female 11:15 PM EST Gender Identity Not on file Sexual Orientation Not on file Obstetrics History Plan of Treatment Upcoming Encounters Date Type Department Care Team (Late st Contact Info) Description 10/08/2025 2:00 PM EST Office Visit Gastroenterology - [address] [phone] Loan Samuels MD [address] [place] [phone] Health Maintenance Due Date Last Done Comments DTaP,Tdap,and Td Vaccines (1 - Tdap) 1968 Pneumococcal Vaccine: 50+ Ye ars (1 of 1 - PCV) 1999 Zoster Vaccines (1 of 2) 1999 Falls Risk Assessment 05/08/2024 Hepatitis C Screening 05/08/2024 Medicare Annual Wellness Visit 05/08/2024 Osteoporosis Screening (Bone Density Screening) 05/08/2024 Social Influencers of Health Screening 05/08/2024 RSV Immunization Adult Patie nts (1 - 1-dose 75+ series) 2024 Depression Screening 10/17/2024 COVID-19 Vaccine (1 - 2024-2 6 season) 2025 Influenza Vaccine (#1) 2025 HIB Vaccines Aged Out No longer eligi ble based on patient's age to complete this topic HPV Vaccines Aged Out No longer eligi ble based on patient's age to complete this topic Hepatitis A Vaccines Aged Out No long er eligible based on patient's age to complete this topic Hepatitis B Vaccines Aged Out No long er eligible based on patient's age to complete this topic IPV Vaccines Aged Out No longer eligi ble based on patient's age to complete this topic MMR Vaccines Aged Out No longer eligi ble based on patient's age to complete this topic Meningococcal ACWY Vaccine Aged Out N o longer eligible based on patient's age to complete this topic Meningococcal B Vaccine Aged Out No l onger eligible based on patient's age to complete this topic RSV Immunization Patients Un matt 20 months Aged Out No longer eligible b ased on patient's age to complete this topic Varicella Vaccines Aged Out No longer eligible based on patient's age to complete this topic Insurance MEDICARE Care Teams Embedded Systems Software Engineer Relationship Specialty [place] [address] [place] [address] PCP - General Internal Medicine 07/24/19
--- OUTSIDE RECORDS SUMMARY | 2025-08-28 09:15 | XMS_ITS | Data Portability ---
Author Organization [facility], [facility] [place] Address [address] [place] [address] Care Team Providers Care Process Engineering Technician Name Role Phone NIKOLAI COTTON Referring Provider [phone] Assessment Encounter Date Assessment Date Assessment LastModified by Organization Details LastModified Time 08/09/2025 08/09/2025 Assessment: Pt with fair cody to stretching (end range pain) and strengthening therex (quick to fatigue). Plan: Cont POC. [email or web address] Not available 08/11/2025 09:26:17 08/13/2025 08/13/2025 Assessment: Fair cody to tx with end range discomfort and quick to fatigue due to L fish and game warden weakness. Fwd posture and decrease in cx neck ROM noted. Plan: Cont POC. Not available 08/15/2025 15:14:41 08/16/2025 08/16/2025 Assessment: Pt cont to struggle with L fish and game warden strengthen with inconsistent hand ROM. Increase in cx neck rotation and Bi shoulder ROM since start of PT. Pt to call PCP for lack of progress regarding fish and game warden. Plan: Cont POC. Not available 08/16/2025 14:33:11 08/20/2025 08/20/2025 Assessment: Difficulty with fish and game warden squeezes while quick to fatigue. Cont fwd posture with stiff neck. Plan: Cont POC. Not available 08/20/2025 15:15:20 08/22/2025 08/22/2025 Assessment: Increased difficulty with fish and game warden squeezes today compared to last session. Pt unable to complete finger taps from thumb to 4th-5th digits. Plan: Cont POC. Not available 08/22/2025 15:13:38 Plan of Treatment Reminders Order Date Submit Date Provider Last Modified By Organization Details Last Modified Time Details Appointments PT FOLLOW -UP 02:00PM Bisi De La Cruz PTA Not available Not available Not available PT FOLLOW -UP 12:00PM Bisi De La Cruz [employer] REPRESENTATIVE Not available Not available Not available PT FOLLOW -UP 12:00PM Bisi De La Cruz [employer] REPRESENTATIVE Not available Not available Not available Lab None record ed. Referral None record ed. Procedures None record ed. Surgeries None record ed. Imaging None record ed. Medication Orders None record ed. Patient TargetsNo targets recorded. Patient InstructionsNo instructions recorded. Reason for Referral None Reported. Results Created Date Observation Date Name Description Value Unit Range Abnormal Flag Note LastModifiedBy Organization Detail LastModifiedTime 07/12/20 25 MRI, cervi jose francisco spine , w/o contr ast No observ ation record ed. [email or web address] Not Available 2024 16:54:52 Result Notes None recorded. Problems Name Problem SNOMED Code Status Onset Date Resolution Date Notes Provider Name and Address Organization Details Recorded Time Irritable bowel syndrome 20092243 Active MELISSA ESCALANTE [facility] 4 09:58:11 Urticaria 102387685 Active MELISSA ESCALANTE [facility] 4 09:58:12 Cervical lymphadenop athy 060995091 Active MELISSA BORIS [facility] 4 09:58:12 Parvovirus infection 887117910 Bird ESCALANTE [facility] 4 09:58:12 Non-toxic uninodular goiter 407351097 Bird ESCALANTE [facility] 4 09:58:12 Asthma 214094977 Bird ESCALANTE [facility] 4 09:58:12 Ferguson's ulcer of esophagus 414727347 Bird ESCALANTE [facility] 4 09:58:12 Non-alcohol ic fatty liver 714669804 Bird ESCALANTE [facility] 4 09:58:12 Anxiety state 616992265 Active MELISSA BORIS [facility], [facility] 4 09:58:12 Pain of joint of hand 355060263 Active MELISSA [facility]ORIS [facility], [facility] 4 09:58:12 Recurrent parotitis 834538425 [address] [facility] [facility]ORIS [facility], [facility] 4 09:58:12 Gastroesoph ageal reflux disease 227351036 Active MELISSA [facility]ORIS [facility], [facility] 4 09:58:12 Headache 96035341 Active MELISSA [facility]ORIS [facility], [facility] 4 09:58:12 Dyspnea 587070819 Active [facility]ELISSA [facility]ORIS [facility], [facility] 4 09:58:12 Edema 221259825 Active MELSISA BORIS [facility], [facility] 4 09:58:12 Pure hypercholes terolemia 077751485 Active MELISSA [facility]ORIS [facility], [facility] 4 09:58:12 Postoperati ve hypothyroid ism 26263499 Active MELISSA [facility]ORIS [facility], [facility] 4 09:58:12 Anemia 043874872 Active MELISSA [facility]ORIS [facility], [facility] 4 09:58:12 Alkaline phosphatase above reference range 130276197 Active MELISSA [facility]ORIS [facility], [facility] 4 09:58:13 Menopause present 913210176 Active MELISSA [facility]ORIS [facility], [facility] 4 09:58:13 Chest pain 24176766 Active MELISSA [facility]ORIS [facility], [facility] 4 09:58:13 Osteopenia 665773281 Active MELISSA [facility]ORIS [facility], [facility] 4 09:58:13 Pain of multiple joints 40606511 Active [facility]EL[facility]SA [facility]ORIS [facility], [facility] 4 09:58:13 Lesion of ulnar nerve 261054464 Active MELISSA BORIS null, [facility] 4 09:58:13 Sinusitis 57714331 Active MELISSA [facility]ORIS [facility], [facility] 4 09:58:13 Major depressive disorder 379291005 Active [facility]ELISSA [facility], [facility] 4 09:58:13 Hiatal hernia with gastroesoph ageal reflux 871022158 Active [facility]ELISSA [facility]IS [facility], [facility] 4 09:58:13 Hypertensiv e disorder 84557703 Active MELISSA [facility]ORIS [facility], [facility] 4 09:58:13 Impaired fasting glycemia 545718653 Active MELISSA [facility]ORIS [facility], [facility] 4 09:58:13 Osteoarthri tis 563411400 Active MELISSA [facility]ORIS [facility], [facility] 4 09:58:13 Chronic sinusitis 53325721 Active MELISSA [facility]ORIS [facility], [facility] 4 09:58:13 Angioedema 08388073 Active MELISSA [facility]ORIS [facility], [facility] 4 09:58:13 Undifferent iated inflammator y arthritis 504149732 Active MELISSA [facility]ORIS [facility], [facility] 4 09:58:13 Mild intermitten t asthma 458708267 Active MELISSA [facility]ORIS [facility], [facility] 4 09:58:13 Cough 58046632 Active MELISSA [facility]IS [facility], [facility] 4 09:58:14 Candidiasis of skin 18914784 Active MELISSA [facility]IS [facility], [facility] 4 09:58:14 Disorder of bursa of shoulder region 44147799 Active MELISSA [facility]ORIS [facility], [facility] 4 09:58:14 Allergic rhinitis 31941286 Active MELISSA [facility]ORIS [facility], [facility] 4 09:58:14 Osteoporosi s 71747530 Active MELISSA BORIS [facility] 4 09:58:14 Polyp of colon 43411562 Active [facility] 4 09:58:14 Muscle pain 67130854 [place] [facility] 4 09:58:14 Suspected COVID-19 336074021 Active [place]SA [place] [facility] 4 09:58:14 Primary malignant neoplasm of female breast 07494730 Active [facility] 4 09:58:14 Primary malignant neoplasm of thyroid gland 28892991 Active [place]ISSA [place] [facility] 4 09:58:14 Pain of knee region 4356940469 Active 2011 [place]SA [place] [facility] 4 09:58:11 History of malignant neoplasm of breast 319429554 Active 2011 [place]SA [place] [facility] 4 09:58:13 Intestinal obstruction 35728422 Active 2012 M[place]ISSA [place] [facility] 4 09:58:14 Patient status finding 428062309 Active 2012 [place]SA [place] [facility] 4 09:58:12 Toxic effect of carbon monoxide 24437455 [facility] 4 09:58:12 Breathing painful 53162043 Active 2012 MELISSABENNY ESCALANTE [facility] 4 09:58:14 Influenza vaccine needed 4174943881737 Active 2012 MELISSABENNY PRUETTDEN [facility] 4 09:58:12 Pain in thoracic spine 815968620 Active 2013 MELISSA ESCALANTE [facility] 4 09:58:12 Shoulder joint pain 500740943 Active 2013 MELISSA ESCALANTE [facility] 4 09:58:12 Malaise and fatigue 920318440 Active 2013 MELISSABENNY ESCALANTE [facility] 4 09:58:13 Essential hypertensio n 50254932 Active 2013 MELISSABENNY ESCALANTE [facility] 4 09:58:14 Depressive disorder 55088176 Active 2013 MELISSABENNY PRUETTDEN [facility] 4 09:58:13 Fibromyosit is 22053405 Active 2013 MELISSABENNY ESCALANTE [facility] 4 09:58:12 Steatotic liver disease 534766123 Active 2015 MELISSABENNY ESCALANTE [facility] 4 09:58:12 Breast lump 51983790 Active 2016 MELISSA BORIS [facility] 4 09:58:14 Small vessel cerebrovasc ular disease 214142215 Active 2016 MELISSA ESCALANTE [facility] 4 09:58:13 History of angioedema 0005688468399 Active 2016 MELISSABENNY ESCALANTE [facility] 4 09:58:14 Disorder of lumbar disc 904851138 Active 2016 MELISSA BORIS [facility] 4 09:58:13 Hypercholes terolemia 16821083 Active 2016 MELISSA BORIS [facility] 4 09:58:12 History of surgery 974826957 Active 2016 MELISSA BORIS [facility] 4 09:58:12 Malignant neoplasm of upper-outer quadrant of female breast 109484403 Active 2016 MELISSA BORIS [facility] 4 09:58:12 Acute low back pain 438905133 Active 2016 MELISSA ESCALANTE [facility] 4 09:58:13 Family history of hemochromat osis 165854740 [facility] 4 09:58:13 Osteoarthri tis of joint of hand 03126735 Active 2017 [place]SA [place] [facility] 4 09:58:12 Lumbar arthritis 510137019 Active 2017 MELISSA BORIS [facility] 4 09:58:14 Hypokalemia 25636929 Active 2017 [facility] 4 09:58:13 Spondylosis 3634331 Active 2017 [facility] 4 09:58:14 Chronic constipatio n 164552231 Active 2017 M[place]SA [place] [facility] 4 09:58:12 Arthritis 6496245 Active 2017 M[place]ISSA [place] [facility] 4 09:58:13 Osteoarthri tis of joint of right shoulder region 9744207916226 00 Active 2017 M[place]ISSA [place] [facility] 4 09:58:13 Multiple nodules of lung 135701920 Active 2018 MELISSA BORIS [facility] 4 09:58:14 Synovial chondromato sis 399671959 Active 2018 [facility] 4 09:58:12 Mass of lower limb 175874764 Active 2018 [facility] 4 09:58:13 Obesity 032973565 Active 2018 MELISSA BORIS [facility] 4 09:58:13 History of malignant neoplasm of thyroid 870813947 Active 2018 MELISSA BORIS [facility] 4 09:58:13 Bilateral cataracts 78126036 Active 2018 MELISSA [facility], [facility] 4 09:58:14 Body mass index 30+ - obesity 421532824 Active [address] [facility], [facility] 4 09:58:12 Sensorineur al hearing loss of bilateral ears 874069670 Active [address] [facility], [facility] 4 09:58:12 Hypothyroid ism 74019337 Active [address] [facility], [facility] 4 09:58:13 Chronic kidney disease stage 3 987871389 Active [address] [facility], [facility] 4 09:58:13 Magnetic resonance imaging of breast abnormal 4799492179878 9105 Active [address] [facility], [facility] 4 09:58:12 Cyst of pancreas 65056879 Active [address] [facility], [facility] 4 09:58:13 Lumbar spondylosis 631070999 Active [address] [facility], [facility] 4 09:58:12 Minimal cognitive impairment 011322214 Active [address] [facility], [facility] 4 09:58:12 Chronic low back pain 334731802 Active [address] [facility], [facility] 4 09:58:13 Acute sinusitis 45113301 Active [address] [facility], [facility] 4 09:58:12 Major depression in remission 09007340 Active [address] [facility], [facility] 4 09:58:13 Drug-induce d hypokalemia 531962202 Active 2022 MELISSA ESCALANTE null, [facility] 4 09:58:12 Osteoarthri tis of right knee joint 5004293165044 00 Active [address] [facility], [facility] 4 09:58:13 Prediabetes 240749149 [facility] 4 09:58:14 Hypermagnes emia 68777937 Active 2022 [facility] 4 09:58:14 EKG: Q wave abnormal 853626868 Active [address] [facility], [facility] 4 09:58:12 Recurrent major depression in partial remission 58374364 Active 2023 MELISSA [facility], [facility] 4 09:58:13 Tachycardia 5921913 Active 2023 MELISSA [facility], [facility] 4 09:58:13 Osteoarthri tis of shoulder region 85643093 Active 2023 Jaime Lopes PA-C [address], [place], [address], [facility] 4 15:48:41 Notes:Some problems listed i n Document: #[id number] could not be added to this patient's chart. Please review this document and add these problems to the patient's chart manually as needed. Problem Notes None recorded. Procedures Surgical History Date Name Laterality Status Provider Name and Address Organization Details Recorded Time 5 78037 Therapeutic Exercise (1:1) completed Bisi De La Cruz PTA [email or web address] [facility], [place], [address], [facility] 08/22/2025 11:33:58 5 48826: Manual therapy completed Bisi De La Cruz PTA [address], [place], [address], [facility] 08/22/2025 11:33:58 98386 Therapeutic Exercise (1:1) completed Bisi De La Cruz PTA [address], [place], [address], [facility] 08/20/2025 15:13:06 40415: Manual therapy completed Bisi De La Cruz PTA [address], [place], [address], [facility] 08/20/2025 11:42:08 58557 Therapeutic Exercise (1:1) completed Bisi De aL Cruz PTA [address], [place], [address], [facility] 08/16/2025 14:29:56 31885: Manual therapy completed Bisi De La Cruz PTA [address], [place], [address], [facility] 08/16/2025 13:00:18 58320 Therapeutic Exercise (1:1) completed Bisi De La Cruz PTA [address], [place], [address], [facility] 08/14/2025 13:31:38 06089: Manual therapy completed Bisi De La Cruz PTA [address], [place], [address], [facility] 08/13/2025 12:12:00 82332 Therapeutic Exercise (1:1) completed Soto Oneill, PT [address], [place], [address], [facility] 08/09/2025 14:30:22 59597: Manual therapy completed Soto Oneill, PT [address], [place], [address], [facility] 08/09/2025 14:30:23 72121 Therapeutic Exercise (1:1) completed Bisi De La Cruz, [employer] REPRESENTATIVE [address], [place], [address], [facility] 08/01/2025 11:50:16 70812: Manual therapy completed Bisi De La Cruz, [employer] REPRESENTATIVE [address], [place], [address], [facility] 08/01/2025 11:01:58 27171 Therapeutic Exercise (1:1) completed Bisi De La Cruz, [employer] REPRESENTATIVE [address], [place], [address], [facility] 07/30/2025 10:34:01 36449: Manual therapy completed Bisi De La Cruz [employer] REPRESENTATIVE [address], [place], [address], [facility] 07/30/2025 10:33:46 49794 Therapeutic Exercise (1:1) completed Bisi De La Cruz [employer] REPRESENTATIVE [address], [place], [address], [facility] 07/30/2025 10:18:40 89081: Manual therapy completed Bisi De La Cruz [employer] REPRESENTATIVE [address], [place], [address], [facility] 07/30/2025 10:18:45 74857 Therapeutic Exercise (1:1) completed Soto Oneill, PT [address], [place], [address], [facility] 07/25/2025 22:55:04 87166: Low complexity PT Eval completed Soto Oneill, PT [address], [place], [address], [facility] 07/25/2025 23:25:37 4 Sports Shoulder 4&1 w/US completed Jaime Lopes PA-C [address], [place], [address], [facility] 05/14/2024 15:48:13 Imaging Results None recorded. Procedure Notes None recorded. Medical Equipment None Reported. Allergies Allergen ID Allergen Name Allergen Category Reaction Reaction Severity Criticality Documentation Date Start Date Code Code System Note Provider Name and Address Organization Details Recorded Time 224734 Substance with sulfonami de structure and antibacte rial mechanism of action (substanc e) medicatio n other Not available Not available 03/22/2024 05631 8003 SNOMED MELISSA ESCALANTE [facility] 4 09:57:54 899003 lisinopri l medicatio n angioedem a Not available Not available 03/22/2024 01467 RxNorm MELISSA PRUETTDEN [facility] 4 09:57:54 384638 Flonase medicatio n hives Not available Not available 03/22/2024 34113 RxNorm MELISSA ESCALANTE [facility] 4 09:57:54 676080 lovastati n medicatio n myalgias (muscle pain) Not available Not available 03/22/2024 [id number] RxNorm MELISSABENNY PRUETTDEN [facility] 4 09:57:54 [id number] cetirizin e medicatio n Not available Not available Not available 03/22/20242015 35699 RxNorm MELISSA BORIS [facility] 4 09:57:54 [id number] losartan medicatio n cough severe Not available 03/22/20242017 [id number] RxNorm MELISSA ESCALANTE [facility] 4 09:57:54 [id number] letrozole medicatio n myalgias (muscle pain) moderate Not available 03/22/2024 [id number] RxNorm MELISSA ESCALANTE [facility] 4 09:57:54 [id number] atorvasta tin medicatio n myalgias (muscle pain) Not available Not available 03/22/2024 [address] [facility], [facility] 4 09:57:54 [id number] rosuvasta tin medicatio n arthralgi a (joint pain) dizziness mild mild Not available 03/22/2024 55183 2 RxNorm MELISSA mondragon, [facility] 4 09:57:54 [id number] Zyrtec medicatio n other Not available Not available 03/22/[id number] [facility], [facility] 4 09:57:54 [id number] Amitiza medicatio n respirato ry distress moderate Not available 03/22/2024 [id number] [facility], [facility] 4 09:57:54 [id number] lubiprost one medicatio n Not available Not available Not available 03/22/20242017 07288 [address] [facility], [facility] 4 09:57:54 [id number] fluticaso ne furoate medicatio n hives Not available Not available 03/22/20242015 48172 2 RxNobartolome ESCALANTE [facility] 4 09:57:54 [id number] pravastat in sodium medicatio n myalgias (muscle pain) Not available Not available 03/22/2024 53474 4 RxNobartolome ESCALANTE [facility] 4 09:57:54 [id number] plecanati de medicatio n Not available Not available Not available 03/22/20242017 53870 52 RxNobartolome ESCALANTE [facility] 4 09:57:54 Medications Name Sig Start Date Stop Date Status Note LastModified by Organization Details LastModified Time verapamil ER (SR) 120 mg tablet,exte nded release TAKE 1 TABLET BY MOUTH EVERY DAY 12/28 completed Not Available Not Available Not Available Miralax 17 gram oral powder packet Take 17 g by oral route. 03/09 completed Not Available Not Available Not Available losartan 50 mg tablet TAKE 1 TABLET BY MOUTH EVERY DAY 08/24 completed Not Available Not Available Not Available cyclobenzap rine 10 mg tablet EVERY THREE HOURS, NEEDED 10/03 completed Not Available Not Available Not Available prednisone 10 mg tablet Tapering dose by mouth: 5 daily for 2d, then 4 daily for 2d, then 3 daily for 2d, the 2 daily for 2d, the 1 daily for 2d. 06/26 completed Not Available Not Available Not Available doxycycline hyclate 100 mg capsule TAKE 1 CAPSULE BY MOUTH TWICE A DAY FOR 10 DAYS 07/20 completed Not Available Not Available Not Available Calan SR 240 mg tablet,exte nded release 04/28 completed Not Available Not Available Not Available Saline Mist 0.65 % nasal spray aerosol Take 1 spray every 6-8 hours by nasal route for 10 days. 10/06 completed Not Available Not Available Not Available diltiazem ER 180 mg capsule,24 hr,extended release Take 180 mg by oral route. 09/08 completed Not Available Not Available Not Available verapamil 40 mg tablet Take 40 mg by oral route. 04/28 completed Not Available Not Available Not Available trazodone 50 mg tablet Take 25 mg by oral route. 09/08 completed Not Available Not Available Not Available atorvastati n 10 mg tablet Take 1 tablet every day by oral route for 30 days. 12/01 completed Not Available Not Available Not Available azithromyci n 250 mg tablet TAKE 2 TABLETS BY MOUTH TODAY, THEN TAKE 1 TABLET DAILY FOR 4 DAYS DIRECTED 07/20 completed Not Available Not Available Not Available ofloxacin 0.3 % eye drops 05/25 completed Not Available Not Available Not Available fluconazole 150 mg tablet Take 1 tablet every [...] completed Not Available Not Available Not Available prednisone 20 mg tablet TAKE 2 TABLETS BY MOUTH ONCE DAILY FOR 5 DAYS WITH FOOD OR MILK 06/28 completed Not Available Not Available Not Available verapamil ER (SR) 180 mg tablet,exte nded release Take 1 tablet every day by oral route for 90 days. 12/18 completed Not Available Not Available Not Available meclizine 12.5 mg tablet Take 1 tablet 3 times a day by oral route as needed for 5 days. 02/18 completed Not Available Not Available Not Available amlodipine 2.5 mg tablet Take 1 tablet every day by oral route. 08/30 completed Not Available Not Available Not Available metronidazo le 500 mg tablet Take 1 tablet every 12 hours by oral route for 7 days. 07/15 completed Not Available Not Available Not Available chlorthalid one 25 mg tablet TAKE 1 TABLET EVERY DAY BY ORAL ROUTE FOR 90 DAYS, FOR HTN. 12/18 completed Not Available Not Available Not Available fexofenadin e 180 mg tablet Take 1 tablet 3 times a week by oral route. active Not Available Not Available No t Available ciprofloxac in 250 mg tablet TAKE 1 TABLET BY MOUTH EVERY 12 HOURS FOR 3 DAYS 04/28 completed Not Available Not Available Not Available amlodipine 5 mg tablet TAKE 1 TABLET DAILY active Not Available Not Available No t Available lovastatin 10 mg tablet Take 1 tablet by mouth daily 2014 active Not Available Not Available Not Avai lable aspirin 81 mg tablet,ely yed release 09/08 completed Not Available Not Available Not Available doxycycline monohydrate 100 mg tablet Take 100 mg by oral route. 04/28 completed Not Available Not Available Not Available guaifenesin 100 mg/5 mL oral liquid Take 10 mL every 4-6 hours by oral route as needed for 10 days. 09/16 completed Not Available Not Available Not Available amoxicillin 500 mg tablet 500 mg by oral route. 08/26 completed Not Available Not Available Not Available verapamil 120 mg tablet Take 1 tablet every day by oral route. 11/17 completed Not Available Not Available Not Available oxycodone-a cetaminophe n 5 mg-325 mg tablet EVERY 6 HOURS NEEDED 02/05 completed Not Available Not Available Not Available amoxicillin 875 mg tablet Take 1 tablet twice a day by oral route for 10 days. active Not Available Not Available No t Available lorazepam 0.5 mg tablet Take 1 tablet as needed by oral route for 5 days. 12/18 completed Not Available Not Available Not Available methocarbam ol 750 mg tablet Take 1 tablet 3 times a day by oral route for 5 days. 12/08 completed Not Available Not Available Not Available pravastatin 10 mg tablet AT BEDTIME 09/01 completed Not Available Not Available Not Available sulfacetami de sodium 10 % eye drops 02/24 completed Not Available Not Available Not Available benzonatate 100 mg capsule TAKE 1 CAPSULE BY MOUTH THREE TIMES A DAY FOR 5 DAYS 10/28 completed Not Available Not Available Not Available prednisolon e sodium phosphate 1 % eye drops 05/25 completed Not Available Not Available Not Available cephalexin 500 mg capsule TAKE 1 CAPSULE BY MOUTH 4 TIMES A DAY FOR 10 DAYS 06/28 completed Not Available Not Available Not Available clotrimazol e-betametha sone 1 %-0.05 % topical cream PLEASE SEE ATTACHED FOR DETAILED DIRECTION S 09/19 completed Not Available Not Available Not Available Advair Diskus 250 mcg-50 mcg/dose powder for inhalation Inhale 1 puff twice a day by inhalatio n route for 30 days. 03/09 completed Not Available Not Available Not Available nystatin-tr iamcinolone 100,000 unit/g-0.1 % topical cream APPLY TO THE AFFECTED AREA(S) BY TOPICAL ROUTE 2 TIMES PER DAY IN THEMORNIN G AND EVENING active Not Available Not Available No t Available indapamide 1.25 mg tablet Take 1.25 mg by oral route. 09/08 completed Not Available Not Available Not Available Advil 200 mg tablet Take 1 tablet every 6 hours by oral route. 11/17 completed Not Available Not Available Not Available omeprazole 20 mg capsule,del ayed release TAKE 1 CAPSULE DAILY active Not Available Not Available No t Available aspirin 81 mg chewable tablet 81 mg by oral route. 04/13 completed Not Available Not Available Not Available Arimidex 1 mg tablet DAILY 11/10 completed Not Available Not Available Not Available diclofenac sodium 75 mg tablet,ely yed release active Not Available Not Available Not Available montelukast 10 mg tablet Take 10 mg by oral route. 09/08 completed Not Available Not Available Not Available aspirin 81 mg tablet Take 81 mg by oral route. 09/08 completed Not Available Not Available Not Available hydrochloro thiazide 25 mg tablet Take 1 tablet every day by oral route for 90 days. 06/05 completed Not Available Not Available Not Available Synthroid 112 mcg tablet TAKE 1 TABLET TUESDAY THROUGH TUESDAY, SKIP SUNDAYS active Not Available Not Available No t Available gabapentin 100 mg capsule TAKE 1 CAPSULE 3 TIMES DAILY DIRECTED active Not Available Not Available No t Available metoprolol succinate ER 25 mg tablet,exte nded release 24 hr TAKE 1 TABLET BY MOUTH EVERY DAY active Not Available Not Available No t Available nystatin 100,000 unit/gram topical powder APPLY TO THE AFFECTED AREA(S) BY TOPICAL ROUTE 2 TIMES PER DAY 01/15 completed Not Available Not Available Not Available epinephrine 0.3 mg/0.3 mL injection, auto-inject or Take 1 auto every day by injection route for 2 days. active Not Available Not Available No t Available ibuprofen 600 mg tablet Take 1 tablet 3 times a day by oral route as needed for 30 days. active Not Available Not Available No t Available albuterol sulfate HFA 90 mcg/actuati on aerosol inhaler Inhale 2 puffs as needed by inhalatio n route for 30 days. 06/28 completed Not Available Not Available Not Available verapamil ER 240 mg 24 hr capsule,ext ended release Take 240 mg by oral route. 04/28 completed Not Available Not Available Not Available amoxicillin 875 mg-potassiu m clavulanate 125 mg tablet TAKE 1 TABLET BY MOUTH EVERY 12 HOURS DIRECTED FOR 10 DAYS 01/17 completed Not Available Not Available Not Available magnesium 250 mg (as magnesium oxide) tablet Take 1 tablet every day by oral route. 01/17 completed Not Available Not Available Not Available paroxetine ER 12.5 mg tablet,exte nded release 24 hr DAILY active Not Available Not Available Not Available Restasis 0.05 % eye drops in a dropperette USE ONE DROP IN EACH EYE TWICE DAILY. 03/11 completed Not Available Not Available Not Available rosuvastati n 5 mg tablet TAKE 1 TABLET DAILY IN THE EVENING active Not Available Not Available No t Available Klor-Con M20 mEq tablet,exte nded release TAKE 1 TABLET BY MOUTH EVERY DAY 06/03 completed Not Available Not Available Not Available omeprazole magnesium 20 mg tablet,eyl yed release 20 mg by oral route. 04/13 completed Not Available Not Available Not Available polyoxyethy bryon ether powder Take 0.5 g every day by miscell. route. 08/30 completed Not Available Not Available Not Available Flovent HFA 110 mcg/actuati on aerosol inhaler Inhale 1 puff twice a day by inhalatio n route. 02/05 completed Not Available Not Available Not Available Marquita-D 24 Hour 180 mg-240 mg tablet,exte nded release Take 1 tablet every day by oral route. 02/18 completed Not Available Not Available Not Available levalbutero l HFA 45 mcg/actuati on aerosol inhaler TAKE 2 PUFFS BY MOUTH EVERY 4 HOURS NEEDED active Not Available Not Available No t Available hydrocodone 5 mg-acetamin ophen 300 mg tablet EVERY 4 HRS 10/03 completed Not Available Not Available Not Available cholecalcif geovanni (vitamin D3) 25 mcg (1,000 unit) tablet Take 1 tablet 3 times a week by oral route. 06/28 completed Not Available Not Available Not Available Symbicort 160 mcg-4.5 mcg/actuati on HFA aerosol inhaler Inhale 1 puff twice a day by inhalatio n route as needed for 30 days. 09/19 completed Not Available Not Available Not Available Amitiza 8 mcg capsule 08/06 completed Not Available Not Available Not Available olopatadine 0.6 % nasal spray Sulphur 2 sprays twice a day by intranasa l route as needed for allergies for 30 days. active Not Available Not Available No t Available cholecalcif geovanni (vitamin D3) 50 mcg (2,000 unit) capsule 09/08 completed Not Available Not Available Not Available GaviLyte-G 236 gram-22.74 gram-6.74 gram-5.86 gram oral solution TAKE 8 OUNCE BY MOUTH DIRECTED FOLLOW INSTRUCTI ONS PROVIDED TO YOU BY DOCTORS OFFICE 06/28 completed Not Available Not Available Not Available glucosamine 375 mg-chondroi t-msm no1 500 mg-C 15 mg-leona 0.5 mg tablet Take 1 tablet every day by oral route. 05/25 completed Not Available Not Available Not Available Aerochamber Plus Flow-Vu active Not Available Not Available [...] completed Not Available Not Available Not Available Aerochamber Plus Flow-Vu,Lar ge Mask TO USE WITH ALBUTEROL INHALER. active Not Available Not Available No t Available Yuvafem 10 mcg vaginal tablet 05/05 completed Not Available Not Available Not Available Trulance 3 mg tablet Take 1 tablet every day by oral route. 08/24 completed Not Available Not Available Not Available Glucosamine Chondroitin 550 mg-30 mg-1 mg capsule Take 1 capsule every day by oral route. active Not Available Not Available No t Available Breztri Aerosphere 160 mcg-9mcg-4. 8mcg/actuat ion HFA aerosol inhaler Inhale 1 puff as needed by inhalatio n route for 30 days. active Not Available Not Available No t Available QuickVue At-Home COVID-19 Test kit USE DIRECTED 09/16 completed Not Available Not Available Not Available Paxlovid 150 mg-100 mg tablets in a dose pack (Moderate Renal Dose) TAKE 2 TABLETS BY MOUTH TWICE A DAY FOR 5 DAYS *HOLD STATIN* 10/28 completed Not Available Not Available Not Available Vitals None Recorded Social History None recorded. Functional Status None recorded. Mental Status None recorded. Family History Nothing Reported. Medical History Condition Response Allergies/Hayfever N Coronary Artery Disease N Anxiety/Depression Y Breathing or lung disorders N Emphysema N Nerve Disorders N Thyroid Problems Y COPD N Pacemaker N Anemia N Kidney/Bladder Problems N Vascular Disease N Heart Trouble N Heart Attack (OK) N Gastrointestinal Disease N Cholesterol N Diabetes N Autoimmune disease N Bleeding Disorder N Orthotics N Arthritis N Seizures/Epilepsy N Blood Clot N AIDS/HIV N Congestive Heart Failure (CHF) N Acid Reflux (GERD) Y Cancer Y Stroke N Asthma N Circulation Problems N Peripheral Vascular Disease N Sleep Apnea N Hepatitis N Heart Disease N Rheumatoid Arthritis N Arrhythmia N Pulmonary Embolism N Headaches N Fibromyalgia N Hypertension Y Osteoporosis N Gynecological HistoryNo gynecological history recorded. Obstetrics History GPAL:G 0 P 0 0 0 0 Immunizations Vaccine Type Date Status Note Provider Nam e and Address Organization Details Recorded Time Influenza, high-dose, quadrivalent, PF 3 completed MELISSA ESCALANTE null, [facility] 03/22/2024 09:58:31 Influenza, high-dose, quadrivalent, PF 2 completed [facility] 03/22/2024 09:58:31 Influenza, high-dose, quadrivalent, PF 0 completed MELISSA ESCALANTE [facility] 03/22/2024 09:58:31 Influenza, high-dose, quadrivalent, PF 1 completed [facility] 03/22/2024 09:58:31 COVID-19, mRNA, LNP-S, PF, 30 mcg/0.3 mL dose 1 completed MELISSA ESCALANTE [facility] 03/22/2024 09:58:31 COVID-19, mRNA, LNP-S, PF, 30 mcg/0.3 mL dose 1 completed [facility] 03/22/2024 09:58:31 COVID-19, mRNA, LNP-S, PF, 30 mcg/0.3 mL dose 1 completed [facility] 03/22/2024 09:58:31 COVID-19, mRNA, LNP-S, bivalent, PF, 30 mcg/0.3 mL dose 3 completed [facility] 03/22/2024 09:58:31 pneumococcal polysaccharide PPV23 5 completed MELISSA ESCALANTE [facility] 03/22/2024 09:58:31 DT (pediatric) 6 completed MELISSA ESCALANTE null, [facility] 03/22/2024 09:58:31 Tdap 9 completed MELISSA BORIS null, [facility] 03/22/2024 09:58:31 Pneumococcal conjugate PCV 13 4 completed MELISSA ESCALANTE null, [facility] 03/22/2024 09:58:31 zoster live 6 completed MELISSA ESCALANTE null, [facility] 03/22/2024 09:58:32 Influenza, high-dose, trivalent, PF 6 completed MELISSA ESCALANTE null, [facility] 03/22/2024 09:58:32 Influenza, high-dose, trivalent, PF 7 completed MELISSA BORIS null, [facility] 03/22/2024 09:58:32 Influenza, high-dose, trivalent, PF 8 completed MELISSA BORIS null, [facility] 03/22/2024 09:58:32 Influenza, high-dose, trivalent, PF [address] [facility], [facility] 03/22/2024 09:58:32 Influenza, split virus, trivalent, preservative 2 completed MELISSA BORIS null, [facility] 03/22/2024 09:58:32 influenza, whole 6 completed MELISSA BORIS null, [facility] 03/22/2024 09:58:32 Td (adult), 2 Lf tetanus toxoid, preservative free, adsorbed 9 completed MELISSA ESCALANTE null, [facility] 03/22/2024 09:58:32 influenza, seasonal, intradermal, preservative free 3 completed MELISSA ESCALANTE null, [facility] 03/22/2024 09:58:32 Influenza, split virus, quadrivalent, PF 5 completed MELISSA mondragon [place] - [facility] 03/22/2024 09:58:32 Past Encounters Encounter ID Performer Location Encounter Start Date Encounter Closed Date Diagnosis/Indication Diagnosis SNOMED-CT Code Diagnosis ICD10 Code Diagnosis IMO Codes Diagnosis Note [id number] Matthew Scott MD [facility] [address] [place] [address] 03/22/2024 09:52:32 04/13/2024 11:23:56 Pain of right shoulder joint [id number] 4417574 M25.511 Osteoarthr itis of joint of right shoulder region [id number] 00837 M19.135 [id number] MOHIT Vasquez [address] [place] [address] 05/14/2024 15:21:21 05/31/2024 08:33:22 Osteoarthritis of shoulder region 06131710 M19.030 [id number] Soto Oneill, PT [facility] [address] [place] [address] 07/23/2025 12:03:30 07/23/2025 12:41:59 Cervical radiculopathy 56979034 M54.12 [id number] Bisi De La Cruz PTA [facility] [address] [place] [address] 07/26/2025 13:03:04 07/26/2025 14:06:30 Cervical radiculopathy [id number] M54.12 [id number] Bisi De La Cruz PTA [facility] [address] [place] [address] 07/29/2025 12:24:28 07/29/2025 14:08:32 Cervical radiculopathy 62464079 M54.12 [id number] Bisi De La Cruz [employer] [facility] [address] [place] [address] 08/01/2025 10:52:32 08/01/2025 11:38:42 Cervical radiculopathy 94124849 M54.12 [id number] Soto Oneill, PT [facility] [address] [place] [address] 08/09/2025 13:58:26 08/09/2025 14:43:25 Cervical radiculopathy 53947459 M54.12 [id number] Bisi GILMA De La Cruz [facility] [address] [place] [address] 08/13/2025 12:02:55 08/13/2025 13:22:47 Cervical radiculopathy 58702512 M54.12 [id number] Bisi Jono [employer] REPRESENT[employer]IVE [facility] [address] [place] [address] 08/16/2025 12:59:25 08/16/2025 14:09:44 Cervical radiculopathy 36431334 M54.12 [id number] Bisi Jono [employer]PRESENT[employer] [facility] [address] [place] [address] 08/20/2025 11:34:51 08/20/2025 12:36:54 Cervical radiculopathy [id number] M54.12 [id number] Bisi GILMA De La Cruz [facility] [address] [place] [address] 08/22/2025 11:29:34 08/22/2025 12:54:51 Cervical radiculopathy 57139244 M54.12 Health Concerns Section Related Observation LastModified by Organization Detai ls LastModified Time None Recorded Concern Status LastModified by Organization Details LastModified Time None Recorded Advance Directives Directive None Recorded Payers Insurance Date Sequence Insurance Name Policy Number Policy Jurado Covered Member ID Jurado Member ID Guarantor Name 08/17/2025 1 [place]ARE [place]: [facility] Sindi Jorge Gardner [id number] Sindi Shanta Gardner 08/26/2025 2 [place] [place] [employer] (INDEMNITY) [id number] Sindi Gardner [id number] Sindikathryn Gardner 07/23/2025 2 [place] Sindikathryn Gardner [id number] [facility] 06/21/2024 2 [employer] [place] [employer] [place] (INDEMNITY) [id number] Sindi Gardner Notes Date Note Type Note Provider Name and Address Organization Details Recorded Time 08/09/2025 text/html Pt states L shld has been feeling better though still feeling weak, and R shld has actually feeling worse than L shld. Pt also reports awaiting to have EMG of L UE scheduled. Soto Oneill, PT [address], [place], [address], [facility] 08/11/2025 09:26:32 08/13/2025 text/html Pt has no c/os of L sh and cx neck. 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 Also mentioned L sided back->LE pain. Will try scheduling EMG for L UE later today. Bisi De La Cruz, [employer] [address], [place], [address], [facility] 08/15/2025 15:15:35 08/16/2025 text/html Pt reports she has no issues with her neck or shoulder, but cont to have no L fish and game warden strengthen compared to R. Feels constant fatigue even with full nights sleep. EMG scheduled for for Oct 16. Bisi De La Cruz, [employer] REPRESENTATIVE [address], [place], [address], [facility] 08/16/2025 14:35:24 08/20/2025 text/html Pt reports she will try getting a x-ray of L elbow. Cont to have fish and game warden issues. Bisi De La Cruz, [employer] REPRESENT[employer]IVE [address], [place], [address], [facility] 08/20/2025 15:15:45 08/22/2025 text/html Cont fish and game warden issues- no soreness after last session. Bisi De La Cruz [employer] REPRESENT[employer]IVE [address], [place], [address], [facility] 08/22/2025 15:14:08 OBGyn Episode No OBEpisode recorded.
--- OUTSIDE RECORDS SUMMARY | 2025-08-28 09:15 | XMS_ITS | Encounter Summary ---
Author Organization [facility] Address [address] [place] [address] Phone Care Team Providers Care Movie Projectionist Name Role Phone Quinn Mercado MD Primary Care Provider Dimas Chester MD Unavailable Unavailable Alphonse Craig MD Unavailable [phone] Nereyda Figueredo PA-C Unavailable maryann Encounter Details Date Type Department Care Team (Late st Contact Info) Description 08/24/2023 Procedure Pass [address] [address] Social History Tobacco Use Types Packs/Day Years Used Date Smoking Tobacco: Never Smokeless Tobacco: Never Alcohol Use Standard Drinks/Week Comments Yes 1 (1 standard drink = 0.6 oz pur e alcohol) rarely Education Answer Date Recorded Are you interested [...] st Contact Info) Description 08/22/2025 Procedure Pass [address] [address] 10/01/2025 11:45 AM EST Office Visit [facility] General Surgical Care [address] [place] [address] Mattie Mesa MD 15 [facility], 2nd [place] [address] 05/09/2026 11:45 AM EDT Appointment [address] [address] Quinn Mercado MD [address] [place] [address] documented as of this encounter Visit Diagnoses Not on filedocumented in this encounter Care Teams Movie Projectionist Relationship Specialty Start Date End Date Quinn Mercado MD [address] [place] [address] PCP - General 04/16/14 Dimas Chester MD Consulting Provider Allergy and Immunology 11/10/20 Alphonse Craig MD [address] [place] [address] Primary Oncologist Medical Oncology 03/26/21 Nereyda Figueredo PA-C [address] [place] [address] Physician Chinchilla Farmer Medical Oncology 03/17/23 04/01/25 documented as of this encounter Additional Source Comments The information contained in this document represents components of the legal health record. It is not the complete legal health record.[facility]
--- OUTSIDE RECORDS SUMMARY | 2025-08-28 09:15 | XMS_ITS | Encounter Summary ---
Author Organization [facility] Address [address] [place] [address] Phone Care Team Providers Care Review Scheduling Coordinator Name Role Phone Quinn Mercado MD Primary Care Provider Dimas Cehster MD Unavailable Unavailable Alphonse Craig MD Unavailable [phone] Nereyda Figueredo PA-C Unavailable maryann Encounter Details Date Type Department Care Team (Late st Contact Info) Description 04/12/[address] [address] Social History Tobacco Use Types Packs/Day Years [...] Info) Description 08/22/[address] [address] 10/01/2025 11:45 AM EST Office Visit [facility] General Surgical Care 15 [place] [address] Mattie Mesa MD 15 [facility], 2nd [place] [address] [email or web address] 05/09/2026 11:45 AM EDT Appointment [facility], [address] [address] Quinn Mercado MD [address] [place] [address] documented as of this encounter Visit Diagnoses Not on filedocumented in this encounter Care Teams Review Scheduling Coordinator Relationship Specialty Start Date End Date Quinn Mercado MD [address] [place] [address] PCP - General 04/16/14 Dimas Chester MD Consulting Provider Allergy and Immunology 11/10/20 Alphonse Craig MD [address] [place] [address] Primary Oncologist Medical Oncology 03/26/21 Nereyda Figueredo PA-C [address] [place] [address] [email or web address] Physician Nuclear Technician Medical Oncology 03/17/23 04/01/25 documented as of this encounter Additional Source Comments The information contained in this document represents components of the legal health record. It is not the complete legal health record.[facility]
--- OUTSIDE RECORDS SUMMARY | 2025-08-28 09:15 | XMS_ITS | Patient Health Record ---
Author Organization [facility] Address [address] [place] [address] Care Team Providers Care Locum Tenens Hospitalist Name Role Phone Quinn Mercado MD Primary Care Provider Unavail able Black, Alayna Unavailable [phone] Allergies Allergen (clinical drug ingredient) Drug/Non Drug Allergy documented on EMR Reaction Allergy Type Onset Date Status lubiprostone Amitiza respiratory Drug Allergy Ac tive amlodipine Amlodipine Besylate Unknown Drug Allergy Active anastrozole Arimidex muscle pain Drug Allergy Act kodi sulfamethoxazole / trimethoprim Bactrim abdominal pain Drug Allergy Active letrozole Femara severe chest and muscle pain Drug Allergy Active fluticasone Flonase hives Drug Allergy Activ e lisinopril Lisinopril facial edema Drug Allergy Ac tive losartan Losartan Potassium itching/coughing Drug Allergy Active Reason For Referral No Information Medications Medication SIG (Take, Route, Frequency, Duration) Notes Start Date End Date Status hydroCHLOROthiazide 25 MG 1 tablet in morning Orally Once a day; Duration: 30 day(s) Active Omeprazole 20 MG 1 capsule 30 minutes before morning meal Orally Once a day; Duration: 30 day(s) Active Feldene 20 MG 1 capsule with food Orally Once a day; Duration: 30 day(s) 05/09/2020 Active Verapamil HCl 120 MG 1 tablet Orally Thr ee times a day; Duration: 30 day(s) Active Montelukast Sodium 10 MG 1 tablet Orally Once a day; Duration: 30 day(s) Active Rosuvastatin Calcium 5 MG 1 tablet Orall y Once a day; Duration: 30 day(s) Active Synthroid 112 MCG 1 tablet in the morn ing on an empty stomach Orally Once a day; Duration: 30 day(s) Active Magnesium 250 MG 1 tablet with a meal Orally Once a day; Duration: 30 day(s) Active Vitamin D3 50 MCG (1999 UT) Orally Active Night Splint AFO - L1930 as directed 06/13/2020 Active ProAir HFA PRN Active EpiPen Active Social History Tobacco Use: Social History Observation Description Date Details (start date - stop date) Never Smoker NA - NA Tobacco Use/Smoking Question Answer Notes Are you a: nonsmoker Additional Findings: Tobacco Non-User Aggressive non-smoker Alcohol Screen Question Answer Notes Did you have a drink contain ing alcohol in the past year? Yes How often did you have a dri nk containing alcohol in the past year? Monthly or less (1 point) How many drinks did you have on a typical day when you were drinking in the past year? 1 or 2 drinks (0 point) How often did you have 6 or more drinks on one occasion in the past year? Never (0 point) Points 1 Interpretation Negative Tobacco use other than smoking: Question Answer Notes Are you an other tobacco user? No Problems No Known Problems Plan Of Treatment Pending Test Test Name Order Date [id number] TENDON SHEATH/LIGAMENT 0 05/09/2020 Insurance Providers Payer Name Payer Address Payer Phone Subscriber Number Group Number Insured Name Patient Relationship to Insured Coverage Start Date Coverage End Date Medicare National [employer]t [employer] [address] [place] [address] [id number] Sindi Gardner Self - patient is the insured [facility] [address] [place] [address] [id number] Sindi Gardner Self - patient is the insured Medical (General) History Medical History History ICD Code Anemia Osteoporosis asthma Back,Hip,and Knee pain Broken bones CAD (Cholesterol) Cancer Cataracts High blood pressure Numbness Osteopenia Reflux ( GERD) Sinus conditions thyroid Measles Mumps Chicken pox Uterine Fibroids Chondromalacia patella, left knee Surgical History Surgery Date(Month/Year) Neck sx R side hysterectomy 02/1991 R Shoulder sx 07/2008 thyroidectomy 06/2009 lumpectomy, Breast 04/2012
--- OUTSIDE RECORDS SUMMARY | 2025-08-28 09:15 | XMS_ITS | Encounter Summary ---
Author Organization [facility] Address [address] [place] [address] Phone Care Team Providers Care Heel Pricker Name Role Phone Quinn Mercado MD Primary Care Provider Dimas Chester MD Unavailable Unavailable Alphonse Craig MD Unavailable [phone] Nereyda Figueredo PA-C Unavailable maryann Encounter Details Date Type Department Care Team (Late st Contact Info) Description 08/24/2023 Procedure Pass [facility], [address] [address] Social History Tobacco Use Types Packs/Day Years [...] st Contact Info) Description 08/22/2025 Procedure Pass [address] [address] 10/01/2025 11:45 AM EST Office Visit [facility] General Surgical Care 15 [place] [address] Mattie Mesa MD 15 [facility], 2nd [place] [address] 05/09/2026 11:45 AM EDT Appointment [address] [address] Quinn Mercado MD [address] [place] [address] documented as of this encounter Visit Diagnoses Not on filedocumented in this encounter Care Teams Heel Pricker Relationship Specialty Start Date End Date Quinn Mercado MD [address] [place] [address] PCP - General 04/16/14 Dimas Chester MD Consulting Provider Allergy and Immunology 11/10/20 Alphonse Craig MD [address] [place] [address] Primary Oncologist Medical Oncology 03/26/21 Nereyda Figueredo PA-C [address] [place] [address] Physician Enrollment Management Director Medical Oncology 03/17/23 04/01/25 documented as of this encounter Additional Source Comments The information contained in this document represents components of the legal health record. It is not the complete legal health record.[facility]
--- OUTSIDE RECORDS SUMMARY | 2025-08-28 09:15 | XMS_ITS | Encounter Summary ---
Author Organization [facility] Address [address] [place] [address] Phone Care Team Providers Care Steam Room Attendant Name Role Phone Quinn Mercado MD Primary Care Provider Dimas Chester MD Unavailable Unavailable Alphonse Craig MD Unavailable [phone] Nereyda Figueredo PA-C Unavailable maryann Encounter Details Date Type Department Care Team (Late st Contact Info) Description 02/18/2020 Ancillary Orders Virtual Department 30 [place] [address] Laura Nassar, [address] [place] [address] [email or web address] Breast screening Social History Tobacco Use Types [...] st Contact Info) Description 08/22/2025 Procedure Pass [address] [address] 10/01/2025 11:45 AM EST Office Visit [facility] General Surgical Care [address] [place] [address] Mattie Mesa MD 15 [facility], 2nd [place] [address] [email or web address] 05/09/2026 11:45 AM EDT Appointment [address] [address] Quinn Mercado MD [address] [place] [address] documented as of this encounter Results * BI MAMMOGRAM SCREENING WITH TOMOSYNTHESIS WITH CAD (BILATERAL) (04/02/2020 10:48 AM EDT) Anatomical Region Laterality Modality Breast Left, Breast Right, Breast Bilateral Bila teral Mammography 04/02/2020 11:0 3 AM EDT Impressions 04/02/2020 11:07 AM EDT No mammographic evidence of malignancy. BI-RADS CATEGORY: 2 - Benign finding. DENSITY: There are scattered fibroglandular densities. POS - [id number] Narrative 04/02/2020 11:07 AM EDT Standard digital full-field 2-D C view and two-plane tomographic imaging was performed and compared with multiple prior studies, most recently 04/10/2019, with utilization of computer-aided detection. The breasts are composed of scattered fibroglandular densities. The stromal markings are essentially unchanged in overall appearance and distribution. No dominant spiculated mass, suspicious clustered microcalcifications, or focal zone of pathologic skin thickening or retraction are noted to have arisen in the interim. Chronic post surgical and radiation therapy skin and parenchymal distortion on the left is stable. Procedure Note Samaria Dixon MD - 04/02/2020 Standard digital full-field 2-D C view and two-plane tomographic imagingwas performed and compared with multiple prior studies, most lyopjdhi27/25/2019, with utilization of computer-aided detection. The breasts are composed of scattered fibroglandular densities. Thestromal markings are essentially unchanged in overall appearance anddistribution. No dominant spiculated mass, suspicious clusteredmicrocalcifications, or focal zone of pathologic skin thickening orretraction are noted to have arisen in the interim. Chronic post surgicaland radiation therapy skin and parenchymal distortion on the left isstable. IMPRESSION: No mammographic evidence of malignancy. BI-RADS CATEGORY: 2 - Benign finding. DENSITY: There are scattered fibroglandular densities. POS - [id number] Laura Nassar DO IMG MG EXAMS Final Resu lt documented in this encounter Visit Diagnoses Diagnosis Breast screening Breast screening, unspecified Breast screening Breast screening, unspecified documented in this encounter Care Teams Steam Room Attendant Relationship Specialty Start Date End Date Quinn Mercado MD [address] [place] [address] PCP - General 04/16/14 Dimas Chester MD Consulting Provider Allergy and Immunology 11/10/20 Alphonse Craig MD [address] [place] [address] Primary Oncologist Medical Oncology 03/26/21 Nereyda Figueredo PA-C [address] [place] [address] Physician Software Clerk Medical Oncology 03/17/23 04/01/25 documented as of this encounter Additional Source Comments The information contained in this document represents components of the legal health record. It is not the complete legal health record.[facility]
--- OUTSIDE RECORDS SUMMARY | 2025-08-28 09:15 | XMS_ITS | Encounter Summary ---
Author Organization [facility] Address [address] [place] [address] Phone Care Team Providers Care Customer Service Attendant Name Role Phone Quinn Mercado MD Primary Care Provider Dimas Chester MD Unavailable Unavailable Alphonse Craig MD Unavailable [phone] Nereyda Figueredo PA-C Unavailable maryann Encounter Details Date Type Department Care Team (Late st Contact Info) Description 03/22/2023 Procedure Pass [facility], [address] [address] Social History Tobacco Use Types Packs/Day Years [...] st Contact Info) Description 08/22/2025 Procedure Pass [address] [address] 10/01/2025 11:45 AM EST Office Visit [facility] General Surgical Care 15 [place] [address] Mattie Mesa MD 15 [facility], 2nd [place] [address] 05/09/2026 11:45 AM EDT Appointment [address] [address] Quinn Mercado MD [address] [place] [address] documented as of this encounter Visit Diagnoses Not on filedocumented in this encounter Care Teams Customer Service Attendant Relationship Specialty Start Date End Date Quinn Mercado MD [address] [place] [address] PCP - General 04/16/14 Dimas Chester MD Consulting Provider Allergy and Immunology 11/10/20 Alphonse Craig MD [address] [place] [address] Primary Oncologist Medical Oncology 03/26/21 Nereyda Figueredo PA-C [address] [place] [address] Physician Liquid Loader Medical Oncology 03/17/23 04/01/25 documented as of this encounter Additional Source Comments The information contained in this document represents components of the legal health record. It is not the complete legal health record.[facility]
== END 2025-08-28 08:47 | disposition home or self-care (01) ==
LOC: HO.NEURO 08:46
PROVIDERS: PCP Pediatrics; Visit Provider Physician Assistant
DX: G56.22 Lesion of ulnar nerve, left upper limb (principal)
CPT/HCPCS: 95886; 95910

== ENCOUNTER → 2025-08-28 08:49 | Outpatient (BNV) | payer MEDICARE, OTHER, SELFPAY | PROVIDERS: PCP Pediatrics; Visit Provider Physical Medicine & Rehabilitation | DX: G54.0 Brachial plexus disorders (principal) | CPT/HCPCS: 95886; 95910 ==

== ENCOUNTER 2025-09-17 13:11 | Outpatient (AMB) | payer MEDICARE, OTHER, SELFPAY ==
--- OUTSIDE RECORDS SUMMARY | 2016-03-22 23:00 | XMS_ITS | Encounter Summary ---
Author Organization [facility] Address [address] [place] [address] Phone Care Team Providers Care Quality Coordinator Name Role Phone Quinn Mercado MD Primary Care Provider Reason for Visit * MRI/CAT Scan - Closed Specialty Diagnoses / Procedures Referred By Contac t Referred To Contact Procedures MRI Lower Extremity Outside (No Interpretation) Natan Rubio MD [address] [place] [address] Phone: tel: fax: mailto:[email or web address] Referral ID Status Reason Start Date Expiration Date Visits Re quested Visits Authorized [id number] Closed 04/04/2017 04/04/2018 1 1 Encounter Details Date Type Department Care Team (Late st Contact Info) Description 03/23/2016 Hospital Encounter [facility] [address] [place] [address] Natan Rubio MD [address] [place] [address] [email or web address] Social History Tobacco Use Types Packs/Day Years Used Date Smoking Tobacco: Never Smokeless Tobacco: Never Alcohol Use Standard Drinks/Week Comments Yes 1 (1 standard drink = 0.6 oz pur e alcohol) extremely rare glass of wine Education Answer Date Recorded Are you interested in more education? Not on fran e 02/19/2023 Are you concerned about learning? Not on file 02/19/2023 No 02/19/2023 No 02/19/2023 Digital Access Answer Date Recorded No 03/09/2023 No 03/09/2023 Reliable internet access at home? Not on file 03/09/2023 Device with a working camera? Not on file Comments No Sex and Gender Information Value Date Recorded Sex Assigned at Female 04/06/2021 2:21 PM EDT Legal Sex Female 5:31 PM EST Gender Identity Female 04/06/2021 2:21 PM EDT Sexual Orientation Not on file documented as of this encounter Plan of Treatment Upcoming Encounters Date Type Department Care Team (Late st Contact Info) Description 08/22/2025 Procedure Pass [address] [address] 10/01/2025 11:45 AM EST Office Visit [facility] General Surgical Care [address] [place] [address] Mattie Mesa MD [address] [facility] [place] [address] [email or web address] 05/09/2026 11:45 AM EDT Appointment [address] [address] Quinn Mercado MD [address] [place] [address] documented as of this encounter Procedures Procedure Name Priority Date/Time Associated Diagnosis Comments MRI LOWER EXTREMITY OUTSIDE (NO INTERPRETATION) Routine 03/23/2016 12:00 AM EDT documented in this encounter Results * MRI Lower Extremity Outside (No Interpretation) (03/23/2016 12:00 AM EDT) Narrative [facility] - 04/04/2017 11:57 AM EDT This study is for PACS storage only and not for interpretation. us Natan Rubio MD IMG OUTSIDE IMAGING W/OUT INTERPRETATION Final Result [facility] documented in this encounter Visit Diagnoses Not on filedocumented in this encounter Care Teams Quality Coordinator Relationship Specialty Start Date End Date Quinn Mercado MD [address] [place] [address] PCP - General 04/16/14 documented as of this encounter Additional Source Comments The information contained in this document represents components of the legal health record. It is not the complete legal health record.[facility]
--- OUTSIDE RECORDS SUMMARY | 2016-03-22 23:15 | XMS_ITS | Encounter Summary ---
Author Organization [facility] Address [address] [place] [address] Phone Care Team Providers Care World Designer Name Role Phone Quinn Mercado MD Primary Care Provider Reason for Visit * MRI/CAT Scan - Closed Specialty Diagnoses / Procedures Referred By Contac t Referred To Contact Procedures MRI Lower Extremity Outside (No Interpretation) Natan Rubio MD [address] [place], [place] [address] [place] [address] Phone: tel: fax: mailto:[email or web address] Referral ID Status Reason Start Date Expiration Date Visits Re quested Visits Authorized [id number] Closed 04/04/2017 04/04/2018 1 1 Encounter Details Date Type Department Care Team (Late st Contact Info) Description 03/23/2016 12:15 AM EDT Hospital Encounter [facility] [address] [place] [address] Natan Rubio MD [address] [place] [address] [email or web address] Social History Tobacco Use Types Packs/Day Years [...] st Contact Info) Description 08/22/2025 Procedure Pass [address] [address] 10/01/2025 11:45 AM EST Office Visit [facility] General Surgical Care [address] [place] [address] Mattie Mesa MD [address] [place] [address] 05/09/2026 11:45 AM EDT Appointment [address] [address] Quinn Mercado MD [address] [place] [address] documented as of this encounter Procedures Procedure Name Priority Date/Time Associated Diagnosis Comments MRI LOWER EXTREMITY OUTSIDE (NO INTERPRETATION) Routine 03/23/2016 12:15 AM EDT documented in this encounter Results * MRI Lower Extremity Outside (No Interpretation) (03/23/2016 12:15 AM EDT) Narrative [facility] IMG INTERFACES - 04/04/2017 11:57 AM EDT This study is for PACS storage only and not for interpretation. us Natan Rubio MD IMG OUTSIDE IMAGING W/OUT INTERPRETATION Final Result [facility] documented in this encounter Visit Diagnoses Not on filedocumented in this encounter Care Teams World Designer Relationship Specialty Start Date End Date Quinn Mercado MD [address] [place] [address] PCP - General 04/16/14 documented as of this encounter Additional Source Comments The information contained in this document represents components of the legal health record. It is not the complete legal health record.[facility]
--- NOTE | 2025-09-17 13:14 | A.PHYSOV_ITS ---
Vital Signs 09/17/25 13:17 Height 4 ft 11 in Weight 150 lb BMI 30.3 Intake Visit Reasons: EMG followup Intake Note: Patient is a 75 year old male here for EMG review. Marine Tower Operator Required: No Allergies atorvastatin Allergy (Unknown, Verified 09/17/25 13:24) Unknown cetirizine Allergy (Unknown, Verified 09/17/25 13:24) Unknown doxycycline Allergy (Unknown, Verified 09/17/25 13:24) Unknown fluticasone (From Flonase) Allergy (Unknown, Verified 09/17/25 13:24) Unknown lisinopril Allergy (Unknown, Verified 09/17/25 13:24) Unknown losartan Allergy (Unknown, Verified 09/17/25 13:24) Unknown lubiprostone (From Amitiza) Allergy (Unknown, Verified 09/17/25 13:24) Unknown HPI Comments Details: History of Present Illness The patient is a 75 year old individual presenting for follow-up regarding left arm pain and subsequent weakness. 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 An attempt to manage the pain with A dvil was made, but this resulted in an allergic reaction. The pain has since fully resolved and has not recurred, but the patient is left with significant residual weakness in the left hand. This weakness affects cotton feeder strength and fine motor skills, leading to dropping objects during daily activities such as doing laundry. The patient's past medical history is notable for left-sided breast cancer in [id number], which was treated with radiation but not chemotherapy. 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 Patient's symptoms have markedly improved over time except for some residual weakness to her right hand. We are reviewing her EMG during today's visit. Pain Description - Onset: The patient experienced an acute onset of pain around June. - Location: Pain was located in the left arm, extending from the armpit to the elbow. - Character: The pain was described as horrendous and terrible. - Relieving Factors: The pain resolved over time without specific treatment. - Interventions: The patient attempted to use Advil, which provided some relief but caused an allergic reaction. - Current Status: The patient currently reports no pain in the arm. [facility] Surgical History H/O shoulder surgery (Unknown) H/O: hysterectomy (Unknown) History of cataract surgery (Unknown) History of cancer surgery (Unknown) Social History Alcohol intake: current Alcohol intake frequency: does not drink Patient Tobacco Use Status: Never used Tobacco Use of substances other than those prescribed or required for medical reasons: No Review of Systems Narrative Review of Systems - Neurological: Reports left hand weakness and decreased cotton feeder strength. - Musculoskeletal: Denies current arm pain or neck pain. - Allergic/Immunologic: Reports an allergy to Advil. - Constitutional: Reports feeling emotionally stressed and overtired. Physical Exam Exam Exam: Physical Exam Cervical Spine: Examination of her cervical spine, there is limited range of motion at end range throughout. Special Tests: Axial Compression test: Negative Spurlings test: Negative Lhermitte's sign is Negative Upper Extremities: Full range of motion bilateral upper extremities. Equal cotton feeder strength bilaterally. There is notable thenar atrophy of the left hand. She denies any pain or paresthesias with cubital tunnel test. Neuro: Sensation: Intact to upper extremities bilateral to light touch Strength C5 (Elbow Flexion): 5/5 on the left and 5/5 on the right. C6 (Elbow Ext): 5/5 on the left and 5/5 on the right. C7 (Elbow Ext): 5/5 on the left and 5/5 on the right. C8 (Finger Flex): 5/5 on the left and 5/5 on the right. T1 (Finger Abd/Add): 5/5 on the left and 5/5 on the right. DTR: C5 (Biceps): Left 2 Right 2 C6 (Brachioradialis): Left 1 Right 1 C7 (Triceps): Left 2 Right 2 Blanc sign: Negative No pathologic clonus. No involuntary movement. Vital Signs: BMI result Body Mass Index 30.3 Assessment & Plan Assessment & Plan (1) Left hand weakness: Code(s): R29.898 - Other symptoms and signs involving the musculoskeletal system Category: Medical Plan Pain Management - Affect: The patient reports feeling emotional stress due to family matters. - Analgesia: The patient is not currently taking any pain medication for the arm, as the pain has resolved. - Adverse Effects: The patient reported an allergic reaction from a previous trial of Advil. - Activities of Daily Living: The patient reports significant functional impairment due to left hand weakness, including difficulty with cotton feeder and dropping objects. Plan Patient was informed and verbally consented to the use of an ambient scribe for clinic note documentation during this visit. 1. Parsonage-Medina Syndrome The patient's presentation with severe, self-resolving arm pain followed by residual weakness is consistent with Parsonage-Medina syndrome. While the painful phase has passed, the patient is now experiencing the weakness phase, which affects cotton feeder strength and activities of daily living. A referral will be placed for occupational therapy to focus on improving strength and mobility in the left hand. The patient was counseled that recovery is primarily time- dependent and to return if the pain recurs. Discussion Notes I discussed the diagnosis of Parsonage-Medina syndrome with the patient, explaining that it is a rare condition involving inflammation of the brachial plexus. I confirmed that the patient has passed the initial painful stage and is now in the weakness stage, which is typical for this condition. We reviewed that recovery is often spontaneous but can take time, and that occupational therapy is recommended to help restore strength and function to the left hand. I provided the patient with a copy of Dr. Mascorro's diagnostic report and recommended sharing it with the occupational therapist. I advised the patient to return for follow-up if the arm pain recurs. Patient Instructions - Your condition is called Parsonage-Medina syndrome, which is why you had severe arm pain followed by the hand weakness you feel now. - It is recommended that you attend occupational therapy (OT) to help improve the strength and movement in your left hand. - You will need to find a therapy center near you that offers occupational therapy. - Be sure to tell your therapist about your diagnosis, as it is not a common condition. - Recovery can take time, but most people regain much of their strength. - Please return to the clinic if your arm pain comes back. Orders: Orders OT Evaluation and Treatment Today R29.898 - Other symptoms and signs involving the musculoskeletal system Coding Level of Care Code Tele Est Pt Level 3 (76579) Diagnoses Left hand weakness R29.898
[2025-09-17 13:17] VITALS: BMI 30.3
--- OUTSIDE RECORDS SUMMARY | 2025-09-17 15:06 | XMS_ITS | Encounter Summary ---
Author Organization [facility] Address [address] [place] [address] Phone Care Team Providers Care Automatic Buffer Name Role Phone Quinn Mercado MD Primary Care Provider Dimas Chester MD Unavailable Unavailable Alphonse Craig MD Unavailable [phone] Nereyda Figueredo PA-C Unavailable maryann Encounter Details Date Type Department Care Team (Late st Contact Info) Description 04/04/2017 Procedure Pass [facility] Imaging [address] [place] [address] Social History Tobacco Use Types Packs/Day Years Used Date Smoking Tobacco: Never Smokeless Tobacco: Never Alcohol Use Standard Drinks/Week Comments Yes 1 (1 standard drink = 0.6 oz pur e alcohol) extremely rare glass of wine Comments No Sex and Gender Information Value Date Recorded Sex Assigned at Female 04/06/2021 2:21 PM EDT Legal Sex Female 5:31 PM EST Gender Identity Female 04/06/2021 2:21 PM EDT Sexual Orientation Not on file documented as of this encounter Plan of Treatment Upcoming Encounters Date Type Department Care Team (Late st Contact Info) Description 08/22/2025 Procedure Pass [facility] [address] [place] [address] 10/01/2025 11:45 AM EST Office Visit [facility] General Surgical Care [address] [place] [address] Mattie Mesa MD 15 [facility], 2nd [place] [address] 05/09/2026 11:45 AM EDT Appointment [facility], [facility]- [address] [address] Quinn Mercado MD [address] [place] [address] documented as of this encounter Visit Diagnoses Not on filedocumented in this encounter Care Teams Automatic Buffer Relationship Specialty Start Date End Date Quinn Mercado MD [address] [place] [address] PCP - General 04/16/14 Dimas Chester MD Consulting Provider Allergy and Immunology 11/10/20 Alphonse Craig MD [address] [place] [address] Primary Oncologist Medical Oncology 03/26/21 Nereyda Figueredo PA-C [address] [place] [address] Physician Assembler Small Products Medical Oncology 03/17/23 04/01/25 documented as of this encounter Additional Source Comments The information contained in this document represents components of the legal health record. It is not the complete legal health record.[facility]
--- OUTSIDE RECORDS SUMMARY | 2025-09-17 15:07 | XMS_ITS | Encounter Summary ---
Author Organization [facility] Address [address] [place] [address] Phone Care Team Providers Care Painter Ordnance Name Role Phone Quinn Mercado MD Primary Care Provider Dimas Chester MD Unavailable Unavailable Alphonse Craig MD Unavailable [phone] Nereyda Figueredo PA-C Unavailable maryann Encounter Details Date Type Department Care Team (Latest Contact Info) Description 01/01/2022 Transcribe Orders Virtual Department 30 [place] [address] Crystal Solomon MD [address] [place] [address] Breast screening (Primary Dx) Social History Tobacco [...] st Contact Info) Description 08/22/2025 Procedure Pass [address] [address] 10/01/2025 11:45 AM EST Office Visit [facility] General Surgical Care [address] [place] [address] Mattie Mesa MD 15 [facility], 2nd [place] [address] [email or web address] 05/09/2026 11:45 AM EDT Appointment [address] [address] Quinn Mercado MD [address] [place] [address] documented as of this encounter Results * [...] unspecified documented in this encounter Care Teams Painter Ordnance Relationship Specialty Start Date End Date Quinn Mercado MD [address] [place] [address] PCP - General 04/16/14 Dimas Chester MD Consulting Provider Allergy and Immunology 11/10/20 Alphonse Craig MD [address] [place] [address] [phone] [email or web address] Primary Oncologist Medical Oncology 03/26/21 Nereyda Figueredo PA-C [address] [place] [address] [email or web address] Physician Reflector Driller And Deburrer Medical Oncology 03/17/23 04/01/25 documented as of this encounter Additional Source Comments The information contained in this document represents components of the legal health record. It is not the complete legal health record.[facility]
--- OUTSIDE RECORDS SUMMARY | 2025-09-17 15:07 | XMS_ITS | Encounter Summary ---
Author Organization [facility] Address [address] [place] [address] Phone Care Team Providers Care Asset Management Coordinator Name Role Phone Quinn Mercado MD Primary Care Provider Dimas Chester MD Unavailable Unavailable Alphonse Craig MD Unavailable Nereyda Figueredo PA-C Unavailable maryann Encounter Details Date Type Department Care Team (Latest Contact Info) Description 12/17/2022 Transcribe Orders Virtual Department [address] [place] [address] Alphonse Craig MD [address] [place] [address] [email or web address] Breast screening (Primary Dx) Social History Tobacco [...] st Contact Info) Description 08/22/2025 Procedure Pass [address] [address] 10/01/2025 11:45 AM EST Office Visit [facility] General Surgical Care 15 [place] [address] Mattie Mesa MD 15 [facility], 2nd [place] [address] [email or web address] 05/09/2026 11:45 AM EDT Appointment [address] [address] Quinn Mercado MD [address] [place] [address] documented as of this encounter Results * [...] unspecified documented in this encounter Care Teams Asset Management Coordinator Relationship Specialty Start Date End Date Quinn Mercado MD [address] [place] [address] PCP - General 04/16/14 Dimas Chester MD Consulting Provider Allergy and Immunology 11/10/20 Alphonse Craig MD [address] [place] [address] Primary Oncologist Medical Oncology 03/26/21 Nereyda Figueredo PA-C [address] [place] [address] Physician Electrocardiograph Technician Medical Oncology 03/17/23 04/01/25 documented as of this encounter Additional Source Comments The information contained in this document represents components of the legal health record. It is not the complete legal health record.[facility]
--- OUTSIDE RECORDS SUMMARY | 2025-09-17 15:07 | XMS_ITS | Encounter Summary ---
Author Organization [facility] Address [address] [place] [address] Phone Care Team Providers Care Supplier Quality Engineering Manager Name Role Phone Quinn Mercado MD Primary Care Provider Dimas Chester MD Unavailable Unavailable Alphonse Craig MD Unavailable [phone] Nereyda Figueredo PA-C Unavailable maryann Encounter Details Date Type Department Care Team (Late st Contact Info) Description 02/12/[address] [address] Social History Tobacco Use Types Packs/Day Years [...] (Late st Contact Info) Description 08/22/[address] [address] 10/01/2025 11:45 AM EST Office Visit [facility] General Surgical Care [address] [place] [address] Mattie Mesa MD 15 [facility], 2nd [place] [address] 05/09/2026 11:45 AM EDT Appointment [facility], [facility]- [address] [address] Quinn Mercado MD [address] [place] [address] documented as of this encounter Visit Diagnoses Not on filedocumented in this encounter Care Teams Supplier Quality Engineering Manager Relationship Specialty Start Date End Date Quinn Mercado MD [address] [place] [address] PCP - General 04/16/14 Dimas Chester MD Consulting Provider Allergy and Immunology 11/10/20 Alphonse Craig MD [address] [place] [address] Primary Oncologist Medical Oncology 03/26/21 Nereyda Figueredo PA-C [address] [place] [address] Physician Journeyman Operator Assistant Medical Oncology 03/17/23 04/01/25 documented as of this encounter Additional Source Comments The information contained in this document represents components of the legal health record. It is not the complete legal health record.[facility]
--- OUTSIDE RECORDS SUMMARY | 2025-09-17 15:07 | XMS_ITS | Encounter Summary ---
Author Organization [facility] Address [address] [place] [address] Phone Care Team Providers Care Harnessmaker Apprentice Name Role Phone Quinn Mercado MD Primary Care Provider Dimas Chester MD Unavailable Unavailable Alphonse Craig MD Unavailable [phone] Nereyda Figueredo PA-C Unavailable maryann Encounter Details Date Type Department Care Team (Late st Contact Info) Description 04/08/[address] [address] Social History Tobacco Use Types Packs/Day Years [...] (Late st Contact Info) Description 08/22/[address] [address] 10/01/2025 11:45 AM EST Office Visit [facility] General Surgical Care [address] [place] [address] Mattie Mesa MD 15 [facility], 2nd [place] [address] 05/09/2026 11:45 AM EDT Appointment [facility], [place] [facility]- [address] [address] Quinn Mercado MD [address] [place] [address] documented as of this encounter Visit Diagnoses Not on filedocumented in this encounter Care Teams Harnessmaker Apprentice Relationship Specialty Start Date End Date Quinn Mercado MD [address] [place] [address] PCP - General 04/16/14 Dimas [place] MD Consulting Provider Allergy and Immunology 11/10/20 Alphonse Craig MD [address] [place] [address] Primary Oncologist Medical Oncology 03/26/21 Nereyda Figueredo PA-C [address] [place] [address] Physician Speech Communication Instructor Medical Oncology 03/17/23 04/01/25 documented as of this encounter Additional Source Comments The information contained in this document represents components of the legal health record. It is not the complete legal health record.[facility]
--- OUTSIDE RECORDS SUMMARY | 2025-09-17 15:07 | XMS_ITS | Encounter Summary ---
Author Organization [facility] Address [address] [place] [address] Phone Care Team Providers Care Locomotive Pipe Fitter Name Role Phone Quinn Mercado MD Primary Care Provider Dimas Chester MD Unavailable Unavailable Alphonse Craig MD Unavailable [phone] Nereyda Figueredo PA-C Unavailable maryann Encounter Details Date Type Department Care Team (Late st Contact Info) Description 04/08/2021 Procedure Pass [address] [place] [address] Social History Tobacco Use Types Packs/Day Years [...] st Contact Info) Description 08/22/2025 Procedure Pass [address] [address] 10/01/2025 11:45 AM EST Office Visit [facility] General Surgical Care 15 [place] [address] Mattie Mesa MD 15 [facility], 2nd [place] [address] 05/09/2026 11:45 AM EDT Appointment [address] [address] Quinn Mercado MD [address] [place] [address] documented as of this encounter Visit Diagnoses Not on filedocumented in this encounter Care Teams Locomotive Pipe Fitter Relationship Specialty Start Date End Date Quinn Mercado MD [address] [place] [address] PCP - General 04/16/14 Dimas Chester MD Consulting Provider Allergy and Immunology 11/10/20 Alphonse Craig MD [address] [place] [address] Primary Oncologist Medical Oncology 03/26/21 Nereyda Figueredo PA-C [address] [place] [address] Physician Lime Kiln And Recausticizing Operator Medical Oncology 03/17/23 04/01/25 documented as of this encounter Additional Source Comments The information contained in this document represents components of the legal health record. It is not the complete legal health record.[facility]
--- OUTSIDE RECORDS SUMMARY | 2025-09-17 15:07 | XMS_ITS | Encounter Summary ---
Author Organization [facility] Address [address] [place] [address] Phone Care Team Providers Care Immersion Metalcleaner Name Role Phone Quinn Mercado MD Primary Care Provider Dimas Chester MD Unavailable Unavailable Alphonse Craig MD Unavailable [phone] Nereyda Figueredo PA-C Unavailable maryann Encounter Details Date Type Department Care Team (Late st Contact Info) Description 12/17/[address] [address] Social History Tobacco Use Types Packs/Day Years [...] (Late st Contact Info) Description 08/22/[address] [address] 10/01/2025 11:45 AM EST Office Visit [facility] General Surgical Care [address] [place] [address] Mattie Mesa MD 15 [facility], 2nd [place] [address] 05/09/2026 11:45 AM EDT Appointment [facility], [facility]- [address] [address] Quinn Mercado MD [address] [place] [address] documented as of this encounter Visit Diagnoses Not on filedocumented in this encounter Care Teams Immersion Metalcleaner Relationship Specialty Start Date End Date Quinn Mercado MD [address] [place] [address] PCP - General 04/16/14 Dimas Chester MD Consulting Provider Allergy and Immunology 11/10/20 Alphonse Craig MD [address] [place] [address] Primary Oncologist Medical Oncology 03/26/21 Nereyda Figueredo PA-C [address] [place] [address] Physician Publication Specialist Medical Oncology 03/17/23 04/01/25 documented as of this encounter Additional Source Comments The information contained in this document represents components of the legal health record. It is not the complete legal health record.[facility]
--- OUTSIDE RECORDS SUMMARY | 2025-09-17 15:07 | XMS_ITS | Encounter Summary ---
Author Organization [facility] Address [address] [place] [address] Phone Care Team Providers Care Sharepoint Developer Name Role Phone Quinn Mercado MD Primary Care Provider Dimas Chester MD Unavailable Unavailable Alphonse Craig MD Unavailable [phone] Nereyda Figueredo PA-C Unavailable maryann Encounter Details Date Type Department Care Team (Late st Contact Info) Description 04/04/2017 Procedure Pass [facility] Imaging [address] [place] [address] Social History Tobacco Use Types Packs/Day Years [...] st Contact Info) Description 08/22/2025 Procedure Pass [facility] 30 [place] [address] 10/01/2025 11:45 AM EST Office Visit [facility] General Surgical Care 15 [place] [address] Mattie Mesa MD 15 [facility], 2nd [place] [address] 05/09/2026 11:45 AM EDT Appointment [facility], [facility]- [address] [address] Quinn Mercado MD [address] [place] [address] documented as of this encounter Visit Diagnoses Not on filedocumented in this encounter Care Teams Sharepoint Developer Relationship Specialty Start Date End Date Quinn Mercado MD [address] [place] [address] PCP - General 04/16/14 Dimas Chester MD Consulting Provider Allergy and Immunology 11/10/20 Alphonse Craig MD [address] [place] [address] Primary Oncologist Medical Oncology 03/26/21 Nereyda Figueredo PA-C [address] [place] [address] Physician Electronic Heat Seal Operator Medical Oncology 03/17/23 04/01/25 documented as of this encounter Additional Source Comments The information contained in this document represents components of the legal health record. It is not the complete legal health record.[facility]
--- OUTSIDE RECORDS SUMMARY | 2025-09-17 15:08 | XMS_ITS | Encounter Summary ---
Author Organization [facility] Address [address] [place] [address] Phone Care Team Providers Care Pyrometallurgical Engineer Name Role Phone Quinn Mercado MD Primary Care Provider Dimas Chester MD Unavailable Unavailable Alphonse Craig MD Unavailable [phone] Nereyda Figueredo PA-C Unavailable maryann Encounter Details Date Type Department Care Team (Late st Contact Info) Description 06/09/2024 Procedure Pass [address] [address] Social History Tobacco Use Types Packs/Day Years [...] Contact Info) Description 08/22/2025 Procedure Pass [address] [address] 10/01/2025 11:45 AM EST Office Visit [facility] General Surgical Care 15 [place] [address] Mattie Mesa MD 15 [facility], 2nd [place] [address] 05/09/2026 11:45 AM EDT Appointment [address] [address] Quinn Mercado MD [address] [place] [address] documented as of this encounter Visit Diagnoses Not on filedocumented in this encounter Care Teams Pyrometallurgical Engineer Relationship Specialty Start Date End Date Quinn Mercado MD [address] [place] [address] PCP - General 04/16/14 Dimas Chester MD Consulting Provider Allergy and Immunology 11/10/20 Alphonse Craig MD [address] [place] [address] Primary Oncologist Medical Oncology 03/26/21 Nereyda Figueredo PA-C [address] [place] [address] Physician Automobile Bumper Straightener Medical Oncology 03/17/23 04/01/25 documented as of this encounter Additional Source Comments The information contained in this document represents components of the legal health record. It is not the complete legal health record.[facility]
--- OUTSIDE RECORDS SUMMARY | 2025-09-17 15:08 | XMS_ITS | Encounter Summary ---
Author Organization [facility] Address [address] [place] [address] Phone Care Team Providers Care Music Therapist [employer] Name Role Phone Quinn Mercado MD Primary Care Provider Dimas Chester MD Unavailable Unavailable Alphonse Craig MD Unavailable [phone] Nereyda Figueredo PA-C Unavailable maryann Encounter Details Date Type Department Care Team (Late st Contact Info) Description 08/24/2023 Procedure Pass [address] [address] Social History Tobacco Use Types Packs/Day Years [...] Contact Info) Description 08/22/2025 Procedure Pass [address] [address] 10/01/2025 11:45 AM EST Office Visit [facility] General Surgical Care 15 [place] [address] Mattie Mesa MD 15 [facility], 2nd [place] [address] 05/09/2026 11:45 AM EDT Appointment [address] [address] Quinn Mercado MD [address] [place] [address] documented as of this encounter Visit Diagnoses Not on filedocumented in this encounter Care Teams Music Therapist [employer] Relationship Specialty Start Date End Date Quinn Mercado MD [address] [place] [address] PCP - General 04/16/14 Dimas Chester MD Consulting Provider Allergy and Immunology 11/10/20 Alphonse Craig MD [address] [place] [address] Primary Oncologist Medical Oncology 03/26/21 Nereyda Figueredo PA-C [address] [place] [address] Physician Plunger Shovel Operator Medical Oncology 03/17/23 04/01/25 documented as of this encounter Additional Source Comments The information contained in this document represents components of the legal health record. It is not the complete legal health record.[facility]
--- OUTSIDE RECORDS SUMMARY | 2025-09-17 15:08 | XMS_ITS | Encounter Summary ---
Author Organization [facility] Address [address] [place] [address] Phone Care Team Providers Care Hand Packager Name Role Phone Quinn Mercado MD Primary Care Provider Dimas Chester MD Unavailable Unavailable Alphonse Craig MD Unavailable [phone] Nereyda Figueredo PA-C Unavailable maryann Encounter Details Date Type Department Care Team (Late st Contact Info) Description 04/12/[address] [address] Social History Tobacco Use Types Packs/Day Years [...] (Late st Contact Info) Description 08/22/[address] [address] 10/01/2025 11:45 AM EST Office Visit [facility] General Surgical Care 15 [place] [address] Mattie Mesa MD 15 [facility], 2nd [place] [address] [email or web address] 05/09/2026 11:45 AM EDT Appointment [facility], [address] [address] Quinn Mercado MD [address] [place] [address] documented as of this encounter Visit Diagnoses Not on filedocumented in this encounter Care Teams Hand Packager Relationship Specialty Start Date End Date Quinn Mercado MD [address] [place] [address] PCP - General 04/16/14 Dimas Chester MD Consulting Provider Allergy and Immunology 11/10/20 Alphonse Craig MD [address] [place] [address] Primary Oncologist Medical Oncology 03/26/21 Nereyda Figueredo PA-C [address] [place] [address] [email or web address] Physician Regulatory Affairs Specialist Medical Oncology 03/17/23 04/01/25 documented as of this encounter Additional Source Comments The information contained in this document represents components of the legal health record. It is not the complete legal health record.[facility]
--- OUTSIDE RECORDS SUMMARY | 2025-09-17 15:08 | XMS_ITS | Clinical Summary ---
Author Organization [facility] [address] [facility] [place] Address [address] [place] [address] Phone Care Team Providers Care Mill Operator Helper Name Role Phone Quinn Mercado MD Primary Care Provider [phone] Social History Tobacco Use Types Packs/Day Years [...] PM EST Office Visit [facility] - [address] [phone] Loan Samuels MD [address] [place] [address] Health Maintenance Due Date Last Done Comments [...] complete this topic Insurance MEDICARE Care Teams Mill Operator Helper Relationship Specialty [place] [address] [place] [address] PCP - General Internal Medicine 07/24/19
--- OUTSIDE RECORDS SUMMARY | 2025-09-17 15:08 | XMS_ITS | Encounter Summary ---
Author Organization [facility] Address [address] [place] [address] Phone Care Team Providers Care Crime Prevention Worker Name Role Phone Quinn Mercado MD Primary Care Provider Dimas Chester MD Unavailable Unavailable Alphonse Craig MD Unavailable [phone] Nereyda Figueredo PA-C Unavailable maryann Encounter Details Date Type Department Care Team (Late st Contact Info) Description 03/22/2023 Procedure Pass [address] [address] Social History Tobacco Use Types Packs/Day Years [...] st Contact Info) Description 08/22/2025 Procedure Pass [address] [address] 10/01/2025 11:45 AM EST Office Visit [facility] General Surgical Care 15 [place] [address] Mattie Mesa MD [address] [facility], 2nd [place] [address] 05/09/2026 11:45 AM EDT Appointment [address] [address] Quinn Mercado MD [address] [place] [address] documented as of this encounter Visit Diagnoses Not on filedocumented in this encounter Care Teams Crime Prevention Worker Relationship Specialty Start Date End Date Quinn Mercado MD [address] [place] [address] PCP - General 04/16/14 Dimas Chester MD Consulting Provider Allergy and Immunology 11/10/20 Alphonse Craig MD [address] [place] [address] Primary Oncologist Medical Oncology 03/26/21 Nereyda Figueredo PA-C [address] [place] [address] Physician Machine Setter And Repairer Medical Oncology 03/17/23 04/01/25 documented as of this encounter Additional Source Comments The information contained in this document represents components of the legal health record. It is not the complete legal health record.[facility]
--- OUTSIDE RECORDS SUMMARY | 2025-09-17 15:08 | XMS_ITS | Encounter Summary ---
Author Organization [facility] Address [address] [place] [address] Phone Care Team Providers Care Master Fisher Name Role Phone Quinn Mercado MD Primary Care Provider Dimas Chester MD Unavailable Unavailable Alphonse Craig MD Unavailable [phone] Nereyda Figueredo PA-C Unavailable maryann Encounter Details Date Type Department Care Team (Late st Contact Info) Description 01/01/[address] [address] Social History Tobacco Use Types Packs/Day Years [...] (Late st Contact Info) Description 08/22/[address] [address] 10/01/2025 11:45 AM EST Office Visit [facility] General Surgical Care [address] [place] [address] Mattie Mesa MD 15 [facility], 2nd [place] [address] 05/09/2026 11:45 AM EDT Appointment [facility], [facility]- [address] [address] Quinn Mercado MD [address] [place] [address] documented as of this encounter Visit Diagnoses Not on filedocumented in this encounter Care Teams Master Fisher Relationship Specialty Start Date End Date Quinn Mercado MD [address] [place] [address] PCP - General 04/16/14 Dimas Chester MD Consulting Provider Allergy and Immunology 11/10/20 Alphonse Craig MD [address] [place] [address] Primary Oncologist Medical Oncology 03/26/21 Nereyda Figueredo PA-C [address] [place] [address] Physician Associate Professor Of Archaeology Medical Oncology 03/17/23 04/01/25 documented as of this encounter Additional Source Comments The information contained in this document represents components of the legal health record. It is not the complete legal health record.[facility]
--- OUTSIDE RECORDS SUMMARY | 2025-09-17 15:08 | XMS_ITS | Encounter Summary ---
Author Organization [facility] Address [address] [place] [address] Phone Care Team Providers Care Residential Plumber Name Role Phone Quinn Mercado MD Primary Care Provider Dimas Chester MD Unavailable Unavailable Alphonse Craig MD Unavailable [phone] Encounter Details Date Type Department Care Team (Late st Contact Info) Description 04/02/2025 Procedure Pass [facility], [facility] Scan - [address] [address] Social History Tobacco Use Types Packs/Day Years [...] st Contact Info) Description 08/22/2025 Procedure Pass [address] [address] 10/01/2025 11:45 AM EST Office Visit [facility] General Surgical Care [address] [place] [address] Mattie Mesa MD 15 [facility], 2nd [place] [address] 05/09/2026 11:45 AM EDT Appointment [address] [address] Quinn Mercado MD [address] [place] [address] documented as of this encounter Visit Diagnoses Not on filedocumented in this encounter Care Teams Residential Plumber Relationship Specialty Start Date End Date Quinn Mercado MD [address] [place] [address] PCP - General 04/16/14 Dimas Chester MD Consulting Provider Allergy and Immunology 11/10/20 Alphonse Craig MD [address] [place] [address] Primary Oncologist Medical Oncology 03/26/21 documented as of this encounter Additional Source Comments The information contained in this document represents components of the legal health record. It is not the complete legal health record.[facility]
--- OUTSIDE RECORDS SUMMARY | 2025-09-17 15:08 | XMS_ITS | Clinical Summary ---
Author Organization [facility] Address [address] [place] [address] Phone Care Team Providers Care Building Coordinator Name Role Phone Quinn Mercado MD Primary Care Provider Dimas Chester MD Unavailable Unavailable Alphonse Craig MD Unavailable [phone] Allergies Active Allergy Reactions Criticality Noted Date Comments Lubiprostone High 10/12/2018 Chest pressure, coughing, trouble breathing Atorvastatin Musculoskeletal Pain 03/30/2021 Diclofenac Sodium 10/24/2020 Remotely recalls only having a strange feeling Flonase (Fluticasone) Hives 03/08/2016 Fluticasone 03/22/2023 Ibuprofen Swelling 10/24/2020 Suspicion that ibuprofen may be contributing to recurrent angioedema Letrozole Musculoskeletal Pain Medium 03/30/2021 Linaclotide Diarrhea 08/09/2024 Lisinopril Swelling 03/08/2016 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 Went to ER, but did not require [...] AT-HOME COVID-19 TEST) Kit Active glucos sul 7NIb-nbb-wrexr- C-Mn (GLUCOSAMINE CHONDROITIN) 550-30-1 mg Cap daily. [...] Department Care Team Description 08/22/2025 Transcribe Orders [facility] Department [address] [place] [address] Quinn Mercado MD Breast screening (Primary Dx) [...] Contact Info) Description 08/22/2025 Procedure Pass [address] [address] 10/01/2025 11:45 AM EST Office Visit [facility] General Surgical Care [address] [place] [address] Mattie Mesa MD 15 [facility], 2nd [place] [address] 05/09/2026 11:45 AM EDT Appointment [address] [place] [address] Quinn Mercado MD [address] [place] [address] Health Maintenance Due Date Last Done Comments [...] file Insurance MEDICARE PART A & B [facility] MED[employer]ARE SUPPLEMENT MEDICARE PART A & B [employer] MEDICARE SUPPLEMENT MEDICARE PART A & B [employer] MEDICARE SUPPLEMENT MEDICARE PART A & B [employer] MEDICARE SUPPLEMENT MEDICARE PART A & B [facility] [address] MEDICARE PART A & B [facility] MEDICARE SUPPLEMENT MEDICARE PART A & B Member Subscriber Plan / P[facility] Name:Sindi Gardner V Member ID:[id number] Relation to Subscriber:Self Name:Sindi Gardner V Subscriber ID:[id number] Payer ID:[id number] Group ID:Not on file Type:Medicare Address: [employer] [address] [place] [address] [employer] MEDICARE SUPPLEMENT Member Subscriber Plan / Payer ([facility]2014-Present) Name:Sindi Gardner V Relation to Subscriber:Self Name:Sindi Gardner V Payer ID:[id number] (NAIC) Type:Indemnity Address: [address] [place] [address] [employer] MEDICARE SUPPLEMENT MEDICARE PART A & B [employer] MEDICARE SUPPLEMENT Care Teams Building Coordinator Relationship Specialty Start Date End Date Quinn Mercado MD [address] [place] [address] PCP - General 04/16/14 Dimas Chester MD Consulting Provider Allergy and Immunology 11/10/20 Alphonse Craig MD [address] [place] [address] [email or web address] Primary Oncologist Medical Oncology 03/26/21 Additional Source Comments The information contained in this document represents components of the legal health record. It is not the complete legal health record.[facility]
--- OUTSIDE RECORDS SUMMARY | 2025-09-17 15:08 | XMS_ITS | Encounter Summary ---
Author Organization [facility] Address [address] [place] [address] Phone Care Team Providers Care Academic Records Specialist Name Role Phone Quinn Mercado MD Primary Care Provider Dimas Chetser MD Unavailable Unavailable Alphonse Craig MD Unavailable [phone] Nereyda Figueredo PA-C Unavailable maryann Encounter Details Date Type Department Care Team (Late st Contact Info) Description 02/18/2020 Ancillary Orders Virtual Department [address] [place] [address] Laura Nassar, [address] [place] [address] [email or web address] Breast screening Social History Tobacco Use Types [...] st Contact Info) Description 08/22/2025 Procedure Pass [address] [address] 10/01/2025 11:45 AM EST Office Visit [facility] General Surgical Care [address] [place] [address] Mattie Mesa MD [address] [facility], 2nd [place] [address] [email or web address] 05/09/2026 11:45 AM EDT Appointment [address] [address] Quinn Mercado MD [address] [place] [address] documented as of this encounter Results * BI MAMMOGRAM SCREENING WITH TOMOSYNTHESIS WITH CAD (BILATERAL) (04/02/2020 10:48 AM EDT) Anatomical Region Laterality Modality Breast Left, Breast Right, Breast Bilateral Bila teral Mammography 04/02/2020 11:0 3 AM EDT Impressions 04/02/2020 11:07 AM EDT No mammographic evidence of malignancy. BI-RADS CATEGORY: 2 - Benign finding. DENSITY: There are scattered fibroglandular densities. POS - [id number] Narrative 04/02/2020 11:07 AM EDT Standard digital [...] and compared with multiple prior studies, most /25/2019, with utilization of computer-aided detection. The breasts [...] There are scattered fibroglandular densities. POS - [id number] Laura Nassar DO IMG MG EXAMS Final Resu lt documented in this encounter Visit Diagnoses Diagnosis Breast screening Breast screening, unspecified Breast screening Breast screening, unspecified documented in this encounter Care Teams Academic Records Specialist Relationship Specialty Start Date End Date Quinn Mercado MD [address] [place] [address] PCP - General 04/16/14 Dimas Chester MD Consulting Provider Allergy and Immunology 11/10/20 Alphonse Craig MD [address] [place] [address] Primary Oncologist Medical Oncology 03/26/21 Nereyda Figueredo PA-C [address] [place] [address] Physician Graduate Internship Medical Oncology 03/17/23 04/01/25 documented as of this encounter Additional Source Comments The information contained in this document represents components of the legal health record. It is not the complete legal health record.[facility]
--- OUTSIDE RECORDS SUMMARY | 2025-09-17 15:08 | XMS_ITS | Encounter Summary ---
Author Organization [facility] Address [address] [place] [address] Phone Care Team Providers Care Salesperson Burial Needs Name Role Phone Quinn Mercado MD Primary Care Provider Dimas Chester MD Unavailable Unavailable Alphonse Craig MD Unavailable Nereyda Figueredo PA-C Unavailable maryann Encounter Details Date Type Department Care Team (Late st Contact Info) Description 02/12/2021 Ancillary Orders [facility] at [address] [address] Alphonse Craig MD [address] [place] [address] [email or web address] Breast screening Social History Tobacco Use Types [...] st Contact Info) Description 08/22/2025 Procedure Pass [address] [address] 10/01/2025 11:45 AM EST Office Visit [facility] General Surgical Care [address] [place] [address] Mattie Mesa MD 15 [facility], 2nd [place] [address] 05/09/2026 11:45 AM EDT Appointment [address] [address] Quinn Mercado MD [address] [place] [address] documented as of this encounter Results * [...] unspecified documented in this encounter Care Teams Salesperson Burial Needs Relationship Specialty Start Date End Date Quinn Mercado MD [address] [place] [address] PCP - General 04/16/14 Dimas Chester MD Consulting Provider Allergy and Immunology 11/10/20 Alphonse Craig MD [address] [place] [address] Primary Oncologist Medical Oncology 03/26/21 Neeryda Figueredo PA-C [address] [place] [address] [email or web address] Physician [place] [employer] Medical Oncology 03/17/23 04/01/25 documented as of this encounter Additional Source Comments The information contained in this document represents components of the legal health record. It is not the complete legal health record.[facility]
--- OUTSIDE RECORDS SUMMARY | 2025-09-17 15:08 | XMS_ITS | Encounter Summary ---
Author Organization [facility] Address [address] [place] [address] Phone Care Team Providers Care Seal Mixer Name Role Phone Quinn Mercado MD Primary Care Provider Dimas Chester MD Unavailable Unavailable Alphonse Craig MD Unavailable [phone] Nereyda Figueredo PA-C Unavailable maryann Encounter Details Date Type Department Care Team (Late st Contact Info) Description 04/24/[address] [address] Social History Tobacco Use Types Packs/Day Years [...] (Late st Contact Info) Description 08/22/[address] [address] 10/01/2025 11:45 AM EST Office Visit [facility] General Surgical Care [address] [place] [address] Mattie Mesa MD 15 [facility], 2nd [place] [address] [email or web address] 05/09/2026 11:45 AM EDT Appointment [facility], [address] [address] Quinn Mercado MD [address] [place] [address] documented as of this encounter Visit Diagnoses Not on filedocumented in this encounter Care Teams Seal Mixer Relationship Specialty Start Date End Date Quinn Mercado MD [address] [place] [address] PCP - General 04/16/14 Dimas Chester MD Consulting Provider Allergy and Immunology 11/10/20 Alphonse Craig MD [address] [place] [address] Primary Oncologist Medical Oncology 03/26/21 Nereyda Figueredo PA-C [address] [place] [address] [email or web address] Physician Felt Hat Pouncing Operator Hand Medical Oncology 03/17/23 04/01/25 documented as of this encounter Additional Source Comments The information contained in this document represents components of the legal health record. It is not the complete legal health record.[facility]
--- OUTSIDE RECORDS SUMMARY | 2025-09-17 15:09 | XMS_ITS | Encounter Summary ---
Author Organization [facility] Address [address] [place] [address] Phone Care Team Providers Care Zipper Setter Lockstitch Name Role Phone Quinn Mercado MD Primary Care Provider Dimas Chester MD Unavailable Unavailable Alphonse Craig MD Unavailable [phone] Nereyda Figueredo PA-C Unavailable maryann Encounter Details Date Type Department Care Team (Late st Contact Info) Description 08/24/2023 Procedure Pass [address] [address] Social History Tobacco Use Types Packs/Day Years [...] st Contact Info) Description 08/22/2025 Procedure Pass [address] [address] 10/01/2025 11:45 AM EST Office Visit [facility] General Surgical Care [address] [place] [address] Mattie Mesa MD 15 [facility], 2nd [place] [address] 05/09/2026 11:45 AM EDT Appointment [address] [address] Quinn Mercado MD [address] [place] [address] documented as of this encounter Visit Diagnoses Not on filedocumented in this encounter Care Teams Zipper Setter Lockstitch Relationship Specialty Start Date End Date Quinn Mercado MD [address] [place] [address] PCP - General 04/16/14 Dimas Chester MD Consulting Provider Allergy and Immunology 11/10/20 Alphonse Craig MD [address] [place] [address] Primary Oncologist Medical Oncology 03/26/21 Nereyda Figueredo PA-C [address] [place] [address] Physician Cad Manager Medical Oncology 03/17/23 04/01/25 documented as of this encounter Additional Source Comments The information contained in this document represents components of the legal health record. It is not the complete legal health record.[facility]
== END 2025-09-17 13:53 | disposition home or self-care (01) ==
LOC: HO.HPHYS 13:11
PROVIDERS: PCP Pediatrics; Visit Provider Physician Assistant
DX: R29.898 Other symptoms and signs involving the musculoskeletal system (principal)
CPT/HCPCS: 99213

== ENCOUNTER → 2025-09-17 13:11 | Outpatient (BNVA) | payer MEDICARE, OTHER, SELFPAY | PROVIDERS: PCP Pediatrics; Visit Provider Physician Assistant | DX: G54.5 Neuralgic amyotrophy (principal); R29.898 Other symptoms and signs involving the musculoskeletal system | CPT/HCPCS: 99212 ==